=== PATIENT | male | born 1965 | race Caucasian/White ===

== ENCOUNTER 2017-11-02 18:34 | Emergency (ER) | payer OTHER ==
[~2017-11-02] VITALS: Ht 182.9 cm; Wt 98.9 kg
[~2017-11-02 18:34] MED LIST: ASPI-1271 PO; ATEN50TA8 PO; DOCU100C16 PO; FENO54TA4 PO; GABA300C PO; KEP500 PO; LORA-476 PO; NOVN SUBQ; OMEP40EC1 PO; SIMV10TA1 PO; VITA1TAB83 PO; ZOLP10TA1 PO; [UNRECOGNIZED DRUG - CODE] OP; [UNRECOGNIZED DRUG - CODE] OP; [UNRECOGNIZED DRUG - CODE] OP
[2017-11-02 19:15] VITALS: BP 119/62
--- NOTE | 2017-11-02 19:20 | NUR ---
TO LOBBY, AMB, MEDICATED, TOLERATED WELL, V/S STABLE, A/W FOR BED, ERMD NOTED
[2017-11-02] MEDS ORDERED: IBUPROFEN 800 MG TAB ONE (19:28)
--- NOTE | 2017-11-02 21:00 | NUR ---
PT. AMBULATED TO ER BED 11
--- NOTE | 2017-11-02 21:18 | NUR ---
52Y/M PT. PRESENTS TO ED WITH C/O FEVER X 3 DAYS. PT. STATES FEVER WITH COUGH, N/V. HX. ESRD ON HD, HTN, DM. AAO X4, AMBULATORY WITH STEADY GAIT. RESPIRATIONS ROOM AIR, EVEN AND UNLABORED. BL LUNG CLEAR, C/O NON PRODUCTIVE COUGH. SKIN WARM AND DRY, LT. UPPER ARM AV FISTULA. VSS, ER MADE AWARE OF PT. STATUS.
[2017-11-02 23:03] VITALS: BP 120/59
--- NOTE | 2017-11-02 23:05 | NUR ---
Patient discharged with v/s stable. Written and verbal after care instructions given and explained. Patient alert, oriented and verbalized understanding of instructions. Ambulatory with steady gait. All questions addressed prior to discharge. ID band removed. Patient advised to follow up with PMD. Rx of CIPRO MG, PREDNISONE given. Fide MGent educated on indication of medication including possible reaction and MG, MOTRIN side effects. Opportunity to ask questions provided and answered.
== END 2017-11-02 23:00 | disposition home or self-care (01) ==
LOC: MED 18:34
DX: R19.7 Diarrhea, unspecified (principal); R05 Cough; M54.5 Low back pain; E11.9 Type 2 diabetes mellitus without complications; I10 Essential (primary) hypertension
CPT/HCPCS: 99283

== ENCOUNTER 2019-08-31 10:59 | Inpatient (IN) | payer OTHER ==
[~2019-08-31] VITALS: Ht 182.9 cm; Wt 99.8 kg
[~2019-08-31 10:59] MED LIST changes: +FURO-572 PO; -LORA-476 PO; +NIFE-144 PO; +NIFE30TE98 PO; -OMEP40EC1 PO; +OMEP40EC24 PO; +PREG300C PO; +SEN30 PO; -[UNRECOGNIZED DRUG - CODE] OP
--- NOTE | 2019-08-31 10:59 | NUR ---
Patient BIBA ALS, transferred to bed 7. RN evaluating patient at bedside.
[2019-08-31 11:08] VITALS: BP 106/53
--- NOTE | 2019-08-31 11:10 | NUR ---
Note undone in EDM - 08/31/19 at 1205 by MEDHR BIBA FROM HOME C/O SLURRED SPEECH THIS MORNING AND FAMILY CALLED 911. PT ALSO C/O NAUSEA AND GENERALIZED WEAKNESS WITH REDUCED APPETITEFOR 2-3 WEEKS. PT DOES DIALYSIS ON WED/WED/WED, DIALYSIS SHUNT IS ON LEFT UPPER ARM WITH DRESSING COVERED. PT STATES BEING ABLE TO URINATE 2-3 TIMES DAILY WITH SMALL AMOUNT OF URINE. RECEIVED ZOFRAN ON AMBULANCE AROUND 1108AM TODAY. LEFT AC, 20G IV PLACED BY EMT. PT DENIES HAVING SOB, CP, AND HAS MINIOR SLURRED SPEECH MINIOR WITH NO DIFFICULTY OF UNDERSTANDING CONCEPTS. STRENGTH ON UPPER EXTREMETIES ARE EQUAL. PT ABLE TO RAISE EYEBROWS AND CLOSE EYES TIELY WITHOUT ASYMMETRY NOTICED ON PT'S FACE. PATIENT STATES PAIN OF 0/10 AT THIS TIME; VSS; PATIENT POSITIONED FOR COMFORT; HOB ELEVATED; BEDRAILS UP X2; BED DOWN. ER MD MADE AWARE OF PT STATUS. PT IS ON MONITOR.
--- NOTE | 2019-08-31 11:10 | NUR ---
BIBA FROM HOME C/O SLURRED SPEECH THIS MORNING AND FAMILY CALLED 911. PT ALSO C/O NAUSEA AND GENERALIZED WEAKNESS WITH REDUCED APPETITEFOR 2-3 WEEKS. PT DOES DIALYSIS ON MON/WED/FRI, DIALYSIS SHUNT IS ON LEFT UPPER ARM WITH DRESSING COVERED. PT STATES BEING ABLE TO URINATE 2-3 TIMES DAILY WITH SMALL AMOUNT OF URINE. RECEIVED ZOFRAN ON AMBULANCE AROUND 1108AM TODAY. RIGHT AC, 20G IV PLACED BY EMT. PT DENIES HAVING SOB, CP, AND HAS MINIOR SLURRED SPEECH MINIOR WITH NO DIFFICULTY OF UNDERSTANDING CONCEPTS. STRENGTH ON UPPER EXTREMETIES ARE EQUAL. PT ABLE TO RAISE EYEBROWS AND CLOSE EYES TIELY WITHOUT ASYMMETRY NOTICED ON PT'S FACE. PATIENT STATES PAIN OF 0/10 AT THIS TIME; VSS; PATIENT POSITIONED FOR COMFORT; HOB ELEVATED; BEDRAILS UP X2; BED DOWN. ER MD MADE AWARE OF PT STATUS. PT IS ON MONITOR.
--- NOTE | 2019-08-31 11:35 | NUR ---
Dr. Flores is evaluating the patient at bedside.
[2019-08-31] MEDS ORDERED: ACETAMINOPHEN 325 MG TAB PO ONE (11:45)
--- NOTE | 2019-08-31 11:46 | NUR ---
Dr. Flores is re-evaluating the patient at bedside.
[2019-08-31] MEDS ORDERED: ACETAMINOPHEN 325 MG TAB ONE (12:01)
[2019-08-31] MEDS: NACL 0.9% 1,000 ML IV SCH ×2 (12:05→13:05)
--- NOTE | 2019-08-31 12:11 | NUR ---
LAB IS AT BEDSIDE.
--- NOTE | 2019-08-31 12:14 | NUR ---
XRAY IS AT BEDSIDE.
[2019-08-31 12:28] LABS: HEMATOCRIT 37.5 % (36-52); HEMOGLOBIN 12.2 g/dL (12.0-18.0); MEAN CORPUSCULAR HEMOGLOBIN 32 pg (27-31); MEAN CORPUSCULAR HGB CONC 33 g/dL (33-37); MEAN CORPUSCULAR VOLUME 97.3 fL (80-94); PLATELET COUNT (AUTO) 159 K/uL (140-450); RED BLOOD CELL COUNT(AUTO) 3.86 MIL/uL (4.20-6.10); RED CELL DISTRIBUTION WIDTH 15.8 % (11.6-13.7); WHITE BLOOD COUNT (AUTO) 7.2 K/uL (4.8-10.8)
[2019-08-31 12:51] LABS: PROTHROMBIN TIME 9.9 secs (10.8-13.4)
[2019-08-31 12:54] LABS: ANION GAP 10.7 (8-16); POTASSIUM 3.7 mmol/L (3.5-5.1)
[2019-08-31 12:57] LABS: ALBUMIN 3.3 g/dL (3.4-5.0); CREATININE 7.9 mg/dL (0.7-1.3); TOTAL BILIRUBIN 0.8 mg/dL (0.0-1.0)
[2019-08-31 13:28] LABS: LYMPHOCYTES % (MANUAL) 4 % (20-46); MONOCYTES % (MANUAL) 1 % (5-12)
[2019-08-31] MEDS ORDERED: NACL 0.9% 1,000 ML IV ONE (13:35)
--- NOTE | 2019-08-31 13:43 | NUR ---
Note eliswing in EDM - 08/31/19 at 1638 by [email or web address] PT IS STILL NOT ABLE TO URINATE AT THIS TIME. OBTAINED PT AND HIS FAMILY'S PERMISSION AND PER DR. BROWNE'S ORDER. STRAIGHT CATH PT W/O URINE SAMPLE OBTAINED. EXPLAINED THE OUTCOME TO PT AND HIS FAMILY. DR. BROWNE NOTIFIED.
[2019-08-31] MEDS ORDERED: cefTRIAXone 1,000 MG VIAL ONE (14:37)
--- NOTE | 2019-08-31 14:41 | NUR ---
PT IS SLEEPING IN BED CAN BE AROUSED BY CALLING NAME. FAMILY MEMBERS ARE AT BEDSIDE.
[2019-08-31] MEDS ORDERED: LISI-420 PO (15:36)
[2019-08-31] MEDS ORDERED: KEP500 PO (15:36)
[2019-08-31] MEDS ORDERED: GABA300C PO (15:36)
[2019-08-31] MEDS ORDERED: ASPI-1718 PO (15:36)
--- NOTE | 2019-08-31 15:40 | NUR ---
PT IS SLEEPING IN BED CAN BE AROUSED BY CALLING NAME. FAMILY MEMBERS ARE AT BEDSIDE.
--- NOTE | 2019-08-31 16:30 | NUR ---
PT ADMITTED FROM ER. AAOX2 WITH EYES CLOSED, AROUSABLE TO SPEECH. INITIAL ASSESSMENT PERFORMED AT THIS TIME. RESPIRATIONS EVEN AND UNLABORED ON O2 NC 2L. SKIN INTACT. IV IN PLACE PATENT AND INFUSING 2L BOLUS R AC 20G. PT ACCOMPANIED BY SISTER AND MOTHER. SAFETY MEASURES IN PLACE. BED IN LOW POSITION. CALL LIGHT WITHIN REACH. WILL CONTINUE TO MONITOR.
--- NOTE | 2019-08-31 16:30 | NUR ---
Patient will be admitted to care of Viral Syndrome, Hypotension, Dehydration, and Fever. Admited to Telemetry. Will go to room 113. Belongings list completed. Report to JEREMY Domingo.
--- NOTE | 2019-08-31 17:02 | NUR ---
PT ENDORSED TO NIGHT NURSE FOR CONTINUITY OF CARE.
--- NOTE | 2019-08-31 19:30 | NUR ---
RECEIVED BEDSIDE REPORT FROM DAY RN. PT IS SLEEPING COMFORTABLY IN BED. ON NC 2L O2. SISTER AND ARE AT BEDSIDE THEYRE CONCERN PT WILL GET INSULIN TONIGHT WILL F/U NEW ORDERS AND PAGED MD. SKIN IS INTACT. [facility] SPEAKING IV ON RAC 20G SL. JEY AV SHUNT. POC DISCUSSED CALL LIGHT IS WITHIN REACH.
--- NOTE | 2019-08-31 19:45 | NUR ---
ENDORSED PT TO ROLANDO AND TAY LUNA. PT ENDORSED IN STABLE CONDITION.
--- NOTE | 2019-08-31 19:46 | NUR ---
Received report from PM shift nurse Chula. Pt sleeping in bed on left lateral side. No SOB or distress noted. On o2 2LPM via nasal cannula. IV access on right AC 20 patent and intact. Pt noted with AV shunt on left upper arm. Pt on seizure precautions. Safety measures in place. Bed in lowest position. Pt able to ambulate with assist. Board updated. Call light within patient reach. Will continue to monitor patient.
[2019-08-31 20:25] VITALS: BP 126/49
[2019-08-31] MEDS ORDERED: LEVE100S PO (20:53)
--- NOTE | 2019-08-31 20:55 | NUR ---
PAGED DR. VELASQUEZ TO CLARIFY HOME MEDICATIONS. HE SAID OK TO CONTINUE HOME MEDS. OTHER ORDERS MADE CONSULT WITH DR. BUCKLEY, DISEASE EDUCATION SPECIALIST AND ADD RENAL DIET TO CCHO 60 GM. AND BLOOD SUGAR CHECK WITH SLIDING SCALE.
--- NOTE | 2019-08-31 20:55 | NUR ---
CONTINUATION OF ABOVE NOTES. DR. VELASQUEZ MADE AWARE OF THE INSULIN THAT PT TAKES AT HOME.HE SAID TO HOLD AND ORDERED LANTUS AND HUMALOG INSTEAD. .
[2019-08-31] MEDS ORDERED: PREGABALIN 300 MG PO SCH (21:00)
[2019-08-31] MEDS ORDERED: DEXTROSE 50% 50 ML SYR IVP PRN (21:00)
[2019-08-31] MEDS: levETIRAcetam 100 MG/ML ORASYR PO SCH (22:02)
[2019-08-31] MEDS: SIMVASTATIN 10 MG TAB PO SCH (22:02)
[2019-08-31] MEDS: BLOOD GLUCOSE MONITORING 1 DEV DEV FS SCH (22:04)
--- NOTE | 2019-08-31 22:12 | NUR ---
BLOOD SUGAR WAS CHECKED RESULT 581. CALL MD TO MADE HIM AWARE. WILL WAIT FOR CALL BACK.
[2019-08-31] MEDS ORDERED: INSULIN LANTUS 100 UNITS/ML 10 ML VIAL SUBQ SCH ×2 (22:15→23:00)
--- NOTE | 2019-08-31 22:18 | NUR ---
DR. VELASQUEZ CALLED BACK AND MADE AWARE ABOUT BS 581. WITH ORDERS MADE.
[2019-08-31] MEDS ORDERED: INSULIN LISPRO 100 UNITS/ML VIAL SUBQ SCH (23:00)
--- NOTE | 2019-08-31 23:16 | NUR ---
GIVEN THE INSULIN COVERAGE ORDERED LANTUS AND HUMALOG ONCE TONIGHT FOR THE BS 581. PT PROVIDED SOME SANDWICH. TOLERATED WELL. WILL CONTINUE TO MONITOR.
--- NOTE | 2019-09-01 00:05 | NUR ---
Vital signs done. Pt sleeping comfortably. No distress or SOB noted. Will continue to monitor.
[2019-09-01 00:20] VITALS: BP 122/47
--- NOTE | 2019-09-01 02:01 | NUR ---
Rounds done. Pt sleeping. Visible chest rise and fall noted. Will continue to monitor.
--- NOTE | 2019-09-01 04:10 | NUR ---
Vital signs taken. Pt sitting on side of bed. No distress noted. Will continue to monitor.
[2019-09-01 04:29] VITALS: BP 134/60
--- NOTE | 2019-09-01 05:54 | NUR ---
Blood glucose checked result of 455. Dr. Keenan was paged and will wait for call back.
--- NOTE | 2019-09-01 06:30 | NUR ---
Called for Dr. Keenan a second time, no reply.
[2019-09-01] MEDS: BLOOD GLUCOSE MONITORING 1 DEV DEV FS SCH ×4 (06:33→21:08)
[2019-09-01 06:51] LABS: BASOPHILS # (AUTO) 0.1 K/uL (0.00-0.22); EOSINOPHILS # (AUTO) 0.1 K/uL (0-0.4); EOSINOPHILS % (AUTO) 1.3 % (0.0-4.0); HEMOGLOBIN 11.2 g/dL (12.0-18.0); LYMPHOCYTES # (AUTO) 0.7 K/uL (2.0-11.5); LYMPHOCYTES % (AUTO) 8.8 % (20.5-51.1); MEAN CORPUSCULAR HEMOGLOBIN 32 pg (27-31); MEAN CORPUSCULAR HGB CONC 33 g/dL (33-37); MEAN CORPUSCULAR VOLUME 97.7 fL (80-94); MONOCYTES # (AUTO) 0.4 K/uL (0.8-1.0); MONOCYTES % (AUTO) 5.1 % (1.7-9.3); NEUTROPHILS # (AUTO) 6.7 K/uL (1.8-7.7); NEUTROPHILS % (AUTO) 83.8 % (42.2-75.2); PLATELET COUNT (AUTO) 140 K/uL (140-450); RED BLOOD CELL COUNT(AUTO) 3.48 MIL/uL (4.20-6.10); RED CELL DISTRIBUTION WIDTH 15.8 % (11.6-13.7)
--- NOTE | 2019-09-01 07:08 | NUR ---
Spoke with Dr. Keenan made aware of blood sugar of 455 this morning. MD ordered 25units of Lantus one time aside from the scheduled 10 units of Humalog each meal.
--- NOTE | 2019-09-01 07:12 | NUR ---
Pt stable at this time. Sister at bedside. Will endorse to AM shift for continuity of care.
--- NOTE | 2019-09-01 07:25 | NUR ---
One time order of Lantus 25 units per doctors order given at this time.
[2019-09-01] MEDS ORDERED: INSULIN LISPRO 100 UNITS/ML VIAL SUBQ SCH ×2 (07:30→09:21)
[2019-09-01] MEDS ORDERED: INSULIN LANTUS 100 UNITS/ML 10 ML VIAL SUBQ SCH (07:30)
--- NOTE | 2019-09-01 07:30 | NUR ---
RECEIVED PT ROM COMMAND POST SUPERINTENDENT NURSE, TAY AND ROLANDO, PT IS AWAKE AND LYING ON THE BED WITH SIDE RAILS UP AND CALL LIGHT WITHIN REACH, PERIPHERAL LINE ON THE RT AC G. 20 ON SALINE LOCK, LEFT AV SHUNT FOR DIALYSIS ACCESS NOTED, ON O2 2L NC, PT IS SO SLEEPY BUT NO SIGN OF DISTRESS NOTED. WILL CONTINUE TO MONITOR PT.
[2019-09-01 07:33] LABS: ALBUMIN 2.8 g/dL (3.4-5.0); ANION GAP 15.9 (8-16); CARBON DIOXIDE 26.2 mmol/L (21-32); MAGNESIUM 2.2 mg/dL (1.8-2.4); POTASSIUM 5.1 mmol/L (3.5-5.1); TOTAL BILIRUBIN 0.9 mg/dL (0.0-1.0)
[2019-09-01 07:50] LABS: CREATININE 9.4 mg/dL (0.7-1.3)
[2019-09-01 08:00] VITALS: BP 117/50
[2019-09-01] MEDS: ASPIRIN 81 MG TAB.CHEW PO SCH (08:47)
[2019-09-01] MEDS: PANTOPRAZOLE 40 MG TABEC PO SCH (08:47)
[2019-09-01] MEDS: GABAPENTIN 300 MG CAP PO SCH (08:47)
[2019-09-01] MEDS: levETIRAcetam 100 MG/ML ORASYR PO SCH ×2 (08:48→20:55)
[2019-09-01] MEDS: PREGABALIN 50 MG CAP PO SCH ×2 (08:48→21:09)
[2019-09-01] MEDS: LISINOPRIL 20 MG TAB PO SCH (09:00)
[2019-09-01] MEDS: FUROSEMIDE 20 MG TAB PO SCH (09:00)
[2019-09-01] MEDS: NIFEdipine 30 MG TABER PO SCH (09:00)
[2019-09-01] MEDS ORDERED: NON-FORMULARY ITEM (Omeprazole* (Prilosec*) 20 MG) PO SCH (09:00)
[2019-09-01] MEDS ORDERED: NIFEDIPINE 30 MG PO SCH (09:00)
[2019-09-01] MEDS: ATENOLOL 50 MG TAB PO SCH (09:00)
--- NOTE | 2019-09-01 09:00 | NUR ---
DR. VELASQUEZ CALLED BACK, WAS INFORMED THAT PT'S BLOOD GLUCOSE AFTER THE LANTUS THAT WAS GIVEN IS 474 AND MADE A TELEPHONE ORDER TO GIVE PT REGULAR INSULIN 15 UNITS TID WITH MEALS AND A ONE TIME DOSE OF 15 UNITS INSULIN NOW, ORDERS READ BACK AND VERIFIED, WILL CARRY OUT ORDERS.
--- NOTE | 2019-09-01 09:00 | NUR ---
PATIENT HAS BEEN SCREENED AND CATEGORIZED MODERATE NUTRITION RISK. PATIENT WILL BE SEEN WITHIN 3-5 DAYS OF ADMISSION. 09/04/19 09/06/[address]
[2019-09-01] MEDS ORDERED: INSULIN REGULAR, HUMAN 100 UNIT/ML VIAL SUBQ ONE (09:10)
[2019-09-01 12:00] VITALS: BP 139/50
[2019-09-01] MEDS ORDERED: INSULIN REGULAR, HUMAN 100 UNIT/ML VIAL SUBQ SCH (12:00)
--- NOTE | 2019-09-01 12:10 | NUR ---
DIALYSIS WAS STARTED TO PT NOW.
--- NOTE | 2019-09-01 12:20 | NUR ---
INFLUENZA A&B ANTIGEN SAMPLE WAS TAKEN TO PT NOW AND WAS SENT TO LAB.
[2019-09-01] MEDS: INSULIN LISPRO 100 UNITS/ML VIAL SUBQ SCH ×2 (12:42→17:00)
--- NOTE | 2019-09-01 15:40 | NUR ---
DIALYSIS WAS FINISHED NOW.
[2019-09-01 16:00] VITALS: BP 119/65
--- NOTE | 2019-09-01 17:14 | NUR ---
PT IS AWAKE AND BLOOD GLUCOSE CHECK DONE AND RESULT IS 154, SCHEDULED 15 UNITS INSULIN WAS HELD BUT INSTEAD WILL USE THE HUMALOG SLIDING SCALE.
[2019-09-01] MEDS: INSULIN LISPRO SLIDING SCALE 100 UNITS/ML VIAL SUBQ PRN ×2 (17:29→21:05)
--- NOTE | 2019-09-01 19:15 | NUR ---
ENDORSED PT TO COMPUTER SECURITY SPECIALIST NURSELITA FOR CONTINUITY OF CARE.
--- NOTE | 2019-09-01 19:20 | NUR ---
RECEIVED REPORT AT BEDSIDE FROM HAYDEE LUNA DAYSHIFT NURSE AT BEDSIDE FOR CONTINUITY OF CARE, PT INSTABLE CONDITION.
[2019-09-01 20:00] VITALS: BP 111/37
--- NOTE | 2019-09-01 20:00 | NUR ---
PT IN LOW BED, HE IS AOX3 WITH NO S/S OF PAIN OR DISTRESS NOTED. IV SITE 20G ON RIGHT AC INTACT AND FLUSHED PATENT. PT DENIES PAIN AT THIS TIME V/S FOLLOWS T 99.3 P 64 R 18 B/P 111/37 02 91% ON ROOM AIR. COOLING MEASURES GIVEN FOR INCREASED TEMP AND ALL REQUESTED NEEDS ATTENDED. ALL FALLS PRECAUTIONS IN PLACE WELL AND CALL MARINO IN REACH.
--- NOTE | 2019-09-01 21:00 | NUR ---
PT GIVEN DUE MEDS OF KEPPRA, LYRICA AND ZOCOR, PT EDUCATION REGARDING MEDICATION PROVIDED, PT VERBALIZED UNDERSTANDING. PT FINGERSTICK IS 174, 2 UNITS OF HUMALOG COVERAGE PROVIDED SQ. PT DENIES PAIN AT THIS TIME. ALL SEIZURE AND FALLS PRECAUTIONS IN PLACE AND CALL MARINO IN REACH.
[2019-09-01] MEDS: SIMVASTATIN 10 MG TAB PO SCH (21:09)
--- NOTE | 2019-09-01 22:30 | NUR ---
PT ASSISTED TO TOILET AND BACK , ALL FALLS PROTOCOL IN PLACE. NO S/S OF PAIN OR DISTRESS NOTED.
[2019-09-02] VITALS: BP 140/41
--- NOTE | 2019-09-02 00:15 | NUR ---
PT IN BED NO S/S OF PAIN OR DISTRESS NOTED. V/S FOLLOWS T 98.0 P 60 R 18 B/P 140/41 02 94% ON ROOM AIR. ALL FALLS AND SEIZURE PROTOCOLS IN PLACE AND CALL MARINO IN REACH.
--- NOTE | 2019-09-02 02:00 | NUR ---
PT IN BED SLEEPING NO S/S OF PAIN OR DISTRESS NOTED. ALL FALLS AND SEIZURE PRECAUTIONS IN PLACE, AND CALL MARINO IN REACH.
[2019-09-02 04:00] VITALS: BP 137/52
--- NOTE | 2019-09-02 04:00 | NUR ---
SAID THAT HE WANTED TO LEAVE AMA. WHEN ASKED WHY, PT SAID THAT HE WAS STRAIGHT UP TIRED OF BEING HERE AND THAT HE WANTS TO GO HOME AND TAKE A SHOWER AND SHAVE ECT. HE SAID THAT HE FEELS FINE. PT INFORMED WE CANNOT DISCHARGE HIM UNLESS HE HAS A RIDE A HOME AND PEOPLE THERE TO HELP HIM. PT SAID HE LIVES W FAMILY, MOTHER AND SISTER. PT GAVE THE NAME AND NUMBER OF HIS HOME ( ). PHONED HOME AND SPOKE WITH MOTHER OSVALDO, SHE WAS INFORMED OF PT WISHES AND SHE SAID THAT SHE DOESN'T HAVE A CAR AT THIS TIME, BUT WILL CONTACT SISTER AND WORK ON GETTING HIM A RIDE HOME. SPOKE WITH PT WHO WAS AGREEABLE TO STAY UNTIL HE CAN FIND A RIDE HOME WHERE THERE IS FAMILY TO HELP HIM. TOLD MOTHER OSVALDO TO CALL BACK HERE WHEN A RIDE IS ARRANGED FOR HIM. CHARGE NURSE RUCHI LUNA AND HAROON LUNAWILDLIFE MANAGER AWARE. PT LYING IN BED AND V/S FOLLOWS T 97.5 P 60 R 18 B/P 137/52 02 98% ON ROOM AIR. ALL FALLS AND CONTACT PRECAUTIONS IN PLACE.
[2019-09-02] MEDS: PANTOPRAZOLE 40 MG TABEC PO SCH (06:44)
[2019-09-02] MEDS: INSULIN LISPRO SLIDING SCALE 100 UNITS/ML VIAL SUBQ PRN ×3 (06:47→21:07)
--- NOTE | 2019-09-02 06:58 | NUR ---
PT FINGERSTICK IS 302, PT GIVEN 8 UNITS ACCORDING TO S/S COVERAGE. STILL WAITING FOR RETURN CALL FROM FAMILY TO TRANSPORTATION SECURITY SCREENER PT PT REQUESTED. PT IN BED ALL FALLS PRECAUTIONS IN PLACE, NO S/S OF PAIN OR DISTRESS NOTED, CALL MARINO IN REACH.
[2019-09-02 07:10] LABS: CARBON DIOXIDE 25.5 mmol/L (21-32); POTASSIUM 4.5 mmol/L (3.5-5.1)
--- NOTE | 2019-09-02 07:15 | NUR ---
Received bedside report from pm nurse Anel. Pt sitting up at edge of bed, aaox4, no signs of distress, no c/o discomfort. Pt verbalized wanting to go home because he "feels better." Explained to pt that attending physician has not cleared him for discharge and will be safer for him to wait. Pt verbalized understanding & agree with POC.
[2019-09-02 07:16] LABS: PROTHROMBIN TIME 9.5 secs (10.8-13.4)
[2019-09-02 07:17] LABS: ALBUMIN 2.7 g/dL (3.4-5.0); ANION GAP 16.8 (8-16); CARBON DIOXIDE 25.7 mmol/L (21-32); POTASSIUM 4.5 mmol/L (3.5-5.1); TOTAL BILIRUBIN 0.6 mg/dL (0.0-1.0)
[2019-09-02 07:22] LABS: CREATININE 7.9 mg/dL (0.7-1.3)
[2019-09-02 07:23] LABS: CREATININE 7.8 mg/dL (0.7-1.3)
[2019-09-02] MEDS: BLOOD GLUCOSE MONITORING 1 DEV DEV FS SCH ×4 (07:36→20:35)
[2019-09-02 07:40] LABS: BASOPHILS # (AUTO) 0.1 K/uL (0.00-0.22); BASOPHILS % (AUTO) 1.1 % (0.0-2.0); EOSINOPHILS # (AUTO) 0.3 K/uL (0-0.4); EOSINOPHILS % (AUTO) 4.2 % (0.0-4.0); HEMATOCRIT 34.4 % (36-52); HEMOGLOBIN 11.3 g/dL (12.0-18.0); LYMPHOCYTES # (AUTO) 0.8 K/uL (2.0-11.5); LYMPHOCYTES % (AUTO) 12.3 % (20.5-51.1); MEAN CORPUSCULAR HEMOGLOBIN 32 pg (27-31); MEAN CORPUSCULAR HGB CONC 33 g/dL (33-37); MONOCYTES # (AUTO) 0.5 K/uL (0.8-1.0); MONOCYTES % (AUTO) 8.2 % (1.7-9.3); NEUTROPHILS # (AUTO) 4.7 K/uL (1.8-7.7); NEUTROPHILS % (AUTO) 74.2 % (42.2-75.2); PLATELET COUNT (AUTO) 141 K/uL (140-450); RED BLOOD CELL COUNT(AUTO) 3.55 MIL/uL (4.20-6.10); RED CELL DISTRIBUTION WIDTH 15.3 % (11.6-13.7); WHITE BLOOD COUNT (AUTO) 6.3 K/uL (4.8-10.8)
[2019-09-02 07:42] LABS: THYROID STIMULATING HORMONE 1.69 uIU/mL (0.34-3.74)
[2019-09-02 08:00] VITALS: BP 153/68
--- NOTE | 2019-09-02 08:00 | NUR ---
Right AC IV occluded. IV removed, catheter intact, site with min bleeding covered with dry gauze & tape. Pt denies any discomfort. No signs of distress. Bed alarm on. Call light within reach.
[2019-09-02] MEDS: levETIRAcetam 100 MG/ML ORASYR PO SCH ×2 (08:27→20:37)
[2019-09-02] MEDS: ASPIRIN 81 MG TAB.CHEW PO SCH (08:28)
[2019-09-02] MEDS: NIFEdipine 30 MG TABER PO SCH (08:28)
[2019-09-02] MEDS: GABAPENTIN 300 MG CAP PO SCH (08:28)
[2019-09-02] MEDS: ATENOLOL 50 MG TAB PO SCH (08:28)
[2019-09-02] MEDS: PREGABALIN 50 MG CAP PO SCH ×2 (08:29→20:39)
[2019-09-02] MEDS: FUROSEMIDE 20 MG TAB PO SCH (08:29)
[2019-09-02] MEDS: LISINOPRIL 20 MG TAB PO SCH (08:29)
[2019-09-02] MEDS: INSULIN LISPRO 100 UNITS/ML VIAL SUBQ SCH ×3 (08:38→17:00)
--- NOTE | 2019-09-02 11:30 | NUR ---
Pt mother & sister at bedside visiting pt. Pt sitting up at edge of bed, interacting appropriately. No signs of distress, no c/o discomfort. Call light within reach.
[2019-09-02 12:00] VITALS: BP 152/71
--- NOTE | 2019-09-02 12:20 | NUR ---
Dr. Mcdermott at bedside, confirmed if ok to give routine 15units of lispro plus 6units of sliding scale coverage. Per Dr Mcdermott, give 15units & will change insulin orders. Insulin given as directed by physician.
[2019-09-02] MEDS ORDERED: INSULIN NPH HUM/REG INSULIN HM 100 UNIT/ML 10 ML VIAL SUBQ SCH (12:43)
--- NOTE | 2019-09-02 14:41 | NUR ---
Pt sitting up in chair at bedside, no signs of distress, no c/o discomfort. Pt's mother at bedside as well. Call light within reach.
[2019-09-02 16:00] VITALS: BP 131/56
--- NOTE | 2019-09-02 16:14 | NUR ---
Report given to nurse Weiss.
--- NOTE | 2019-09-02 16:15 | NUR ---
RECEIVED REPORT FROM ARNOLD FOR CONTINUITY OF CARE.
--- NOTE | 2019-09-02 16:39 | NUR ---
PT IS RESTING COMFORTABLY IN BED, NO S/S OF ACUTE DISTRESS NOTED, PT ON ROOM AIR, SKIN INTACT. WILL CONTINUE TO MONITOR.
--- NOTE | 2019-09-02 17:51 | NUR ---
PT'S BLOOD GLUCOSE IS 177 AT THIS TIME. Addendum: 09/02/19 at 1803 by Isela Scott RN HELD THE ORDERED 10 UNITS OF HUMALOG BECAUSE PT SAYS HE IS NOT HUNGRY AND DOESN'T FEEL LIKE EATING DINNER TONIGHT. I DID GIVE HIM 2 UNITS SLIDING SCALE HUMALOG.
--- NOTE | 2019-09-02 19:15 | NUR ---
ENDORSED PT TO CHIEF ENGINEER PRODUCTION NURSE RENATE IN STABLE CONDITION
--- NOTE | 2019-09-02 19:16 | NUR ---
RECEIVED BEDSIDE REPORT FROM ALEXXCOSILVIO HERNANDEZ. PT IS AWAKE RESTING IN BED.DISCUSSED PLAN OF CARE, VERBALIZED UNDERSTANDING. NO SIGNS OF DISTRESS NOTED. EVEN UNLABORED BREATHING. SEIZURE PREC. IN PLACE. NO IV PLACEMENT. L AV SHUNT. BED IN LOWEST POSITION. CALL LIGHT WITHIN REACH. WILL CONTINUE TO MONITOR.
[2019-09-02 20:00] VITALS: BP 128/54
[2019-09-02] MEDS: SIMVASTATIN 10 MG TAB PO SCH (20:38)
--- NOTE | 2019-09-02 21:26 | NUR ---
BLOOD SUGAR 200. PT RECEIVED 2 UNITS HUMALOG INSULIN. TOLERATED WELL. NIGHT TIME SNACK IS AT BEDSIDE. WILL CONTINUE TO MONITOR.
--- NOTE | 2019-09-02 23:00 | NUR ---
PT SLEEPING IN BED. ABLE TO MAKE NEEDS KNOWN. NO PAIN REPORTED. WILL CONTINUE TO MONITOR.
[2019-09-03] VITALS: BP 106/49
--- NOTE | 2019-09-03 01:21 | NUR ---
PT SLEEPING IN BED NO SIGNS OF DISTRESS. VSS. NO PAIN REPORTED. NO SIGNS OF DISTRESS.
--- NOTE | 2019-09-03 03:20 | NUR ---
PT SLEEPING IN BED NO SIGNS OF DISTRESS. EVEN CHEST RISE NOTED. NO PAIN REPORTED.
--- NOTE | 2019-09-03 05:16 | NUR ---
PT REPOSITIONED IN BED. NO SIGNS OF DISTRESS. NO PAIN REPORTED.
--- NOTE | 2019-09-03 06:14 | NUR ---
PT IN STABLE CONDITION. WILL ENDORSE TO AM SHIFT RN.
[2019-09-03] MEDS ORDERED: INSULIN NPH HUMAN ISOPHANE 100 UNIT/ML VIAL SUBQ SCH ×3 (06:30→21:00)
[2019-09-03] MEDS: PANTOPRAZOLE 40 MG TABEC PO SCH (06:33)
[2019-09-03] MEDS: BLOOD GLUCOSE MONITORING 1 DEV DEV FS SCH ×2 (06:41→12:03)
[2019-09-03 06:51] LABS: ANION GAP 19.6 (8-16); CARBON DIOXIDE 23.6 mmol/L (21-32)
[2019-09-03] MEDS: INSULIN LISPRO 100 UNITS/ML VIAL SUBQ SCH ×2 (06:53→11:05)
--- NOTE | 2019-09-03 07:00 | NUR ---
CALLED DR IN REGARDS TO INSULIN PROTOCOL. BLOOD SUGAR 442. WAITING FOR CALL BACK FROM .
--- NOTE | 2019-09-03 07:06 | NUR ---
RECEIVED CALL BACK FROM . ORDERED 5 UNITS OF HUMALOG LISPRO. WILL ADMINISTER.
[2019-09-03] MEDS: INSULIN LISPRO SLIDING SCALE 100 UNITS/ML VIAL SUBQ PRN (07:13)
[2019-09-03 07:22] LABS: CREATININE 10.5 mg/dL (0.7-1.3)
[2019-09-03 07:23] LABS: POTASSIUM 5.2 mmol/L (3.5-5.1)
--- NOTE | 2019-09-03 07:30 | NUR ---
Received report from mine shifter nurse. Family be bedside.Pt is in bed now.
--- NOTE | 2019-09-03 07:51 | NUR ---
Received report from Lab Michael at 0725. Called [facility] at 0732 to notify of critical lab values. Requested to notify Dr Camarillo or conversion developer physician Dr Pizano. Addendum: 09/03/19 at 0800 by Rajan Cline RN Dr Shlomo alvarenga Tessa Addendum: 09/03/19 at 0903 by Rajan Cline RN Wrong patient.
[2019-09-03 08:00] VITALS: BP_SYST 129; BP_SYST 132; BP_DIAS 59; BP_DIAS 63
[2019-09-03] MEDS: GABAPENTIN 300 MG CAP PO SCH (09:10)
[2019-09-03] MEDS: NIFEdipine 30 MG TABER PO SCH (09:10)
[2019-09-03] MEDS: ASPIRIN 81 MG TAB.CHEW PO SCH (09:10)
[2019-09-03] MEDS: LISINOPRIL 20 MG TAB PO SCH (09:11)
[2019-09-03] MEDS: FUROSEMIDE 20 MG TAB PO SCH (09:11)
[2019-09-03] MEDS: ATENOLOL 50 MG TAB PO SCH (09:11)
[2019-09-03] MEDS: levETIRAcetam 100 MG/ML ORASYR PO SCH (09:13)
[2019-09-03] MEDS: PREGABALIN 50 MG CAP PO SCH (09:45)
--- NOTE | 2019-09-03 10:45 | NUR ---
Pt's blood sugar was 494. Reported to Dr. Matthews and Charge nurse. Dr Matthews requested to administer 10 U Humalog.
--- NOTE | 2019-09-03 11:46 | NUR ---
Pt is resting in bed. Pt's mother by bedside. No C/O pain.
[2019-09-03 12:00] VITALS: BP 132/59
--- NOTE | 2019-09-03 12:20 | NUR ---
Pt's 1130 blood glucose value was 450. Talked to . [address] Kelley told to give 10 U Short acting Humulin R and 10 U NPH now. Reported to charge nurse. Addendum: 09/03/19 at 1302 by Rajan Cline RN Called pharmacy. As per pharmacy order for short acting was changed to Humalog and not Humulin R.
[2019-09-03] MEDS ORDERED: INSULIN REGULAR, HUMAN 100 UNIT/ML VIAL SUBQ SCH (12:40)
[2019-09-03] MEDS ORDERED: INSULIN LISPRO 100 UNITS/ML VIAL SUBQ SCH ×2 (13:09→13:58)
--- NOTE | 2019-09-03 16:10 | NUR ---
Pt was discharged today. Pt had no complains of pain or in any distress. No IV line noted. Provided discharge papers and requested to follow up with PCP within 5 days. ID bands removed, tele removed. refused vaccines. continue home meds. Pt walked with steady gait. Mother accompanied patient. patient left in stable condition
== END 2019-09-03 16:15 | disposition home or self-care (01) | DRG 865 ==
LOC: MED 10:59 → MTU 15:37
PROVIDERS: ADMIT Internal Medicine Pulmonary Disease; ATTEND Internal Medicine Pulmonary Disease
PROC: 5A1D70Z Performance of Urinary Filtration, Intermittent, Less than 6 Hours Per Day (ICD-10-PCS; principal; 2019-09-01)
DX: B34.9 Viral infection, unspecified (principal); N18.6 End stage renal disease; I69.351 Hemiplegia and hemiparesis following cerebral infarction affecting right dominant side; I12.0 Hypertensive chronic kidney disease with stage 5 chronic kidney disease or end stage renal disease; Z99.2 Dependence on renal dialysis; E11.22 Type 2 diabetes mellitus with diabetic chronic kidney disease; E11.65 Type 2 diabetes mellitus with hyperglycemia; E11.42 Type 2 diabetes mellitus with diabetic polyneuropathy; G40.909 Epilepsy, unspecified, not intractable, without status epilepticus; E78.5 Hyperlipidemia, unspecified; H54.61 Unqualified visual loss, right eye, normal vision left eye; K21.9 Gastro-esophageal reflux disease without esophagitis; E86.0 Dehydration; I95.9 Hypotension, unspecified; Z79.4 Long term (current) use of insulin; Z79.82 Long term (current) use of aspirin; Z83.3 Family history of diabetes mellitus; Z79.899 Other long term (current) drug therapy
CPT/HCPCS: 36415; 70450; 71045; 80048; 80053; 82140; 82550; 82553; 82948; 83605; 83735; 83880; 84436; 84443; 84484; 85025; 85610; 85730; 87040; 87081; 87804; 93005; 96361; 96365; 97116; 99285; C1758; J0696; J1815; J7030; Q0092

== ENCOUNTER 2020-09-21 07:00 | Emergency (ER) | payer OTHER ==
[~2020-09-21] VITALS: Ht 182.9 cm; Wt 99.8 kg
[~2020-09-21 07:00] MED LIST changes: -ASPI-1271 PO; +ASPI-1822 PO; -DOCU100C16 PO; -FENO54TA4 PO; -KEP500 PO; +LEVE100S PO; +LISI-420 PO; -NIFE30TE98 PO; -NOVN SUBQ; -SEN30 PO; -VITA1TAB83 PO; -ZOLP10TA1 PO; -[UNRECOGNIZED DRUG - CODE] OP; -[UNRECOGNIZED DRUG - CODE] OP
[2020-09-21 07:19] VITALS: BP 183/156
--- NOTE | 2020-09-21 07:32 | NUR ---
PATIENT AMBULATED TO ER BED 02
--- NOTE | 2020-09-21 07:38 | NUR ---
55 y/o male from c/o dry cough, nausea, vomiting, diarrhea since yesterday. Denies pain at this time. RR even and unlabored, no signs of distress. Abd soft, round, nontender to palp. Bowel sounds present x 4 quadrants. Pt has left arm shunt for dialysis. Skin warm, dry, intact. Placed on bedside monitor medhx: ESRD, DM, HTN
--- NOTE | 2020-09-21 07:42 | NUR ---
Dr Perez at bedside examining pt
[2020-09-21] MEDS ORDERED: cefTRIAXone 1,000 MG in DEXT 5% MINI-BAG PLUS 50 ML IV ONE (07:45)
--- NOTE | 2020-09-21 07:56 | NUR ---
Lab at bedside for blood draw
[2020-09-21] MEDS ORDERED: cefTRIAXone 1,000 MG VIAL ONE ×2 (07:59→08:52)
--- NOTE | 2020-09-21 08:03 | NUR ---
Xray at bedside
[2020-09-21 08:15] LABS: BASOPHILS # (AUTO) 0.1 K/uL (0.00-0.22); BASOPHILS % (AUTO) 1.5 % (0.0-2.0); EOSINOPHILS # (AUTO) 0.1 K/uL (0-0.4); EOSINOPHILS % (AUTO) 1.5 % (0.0-4.0); HEMATOCRIT 28.1 % (36-52); HEMOGLOBIN 9.7 g/dL (12.0-18.0); LYMPHOCYTES # (AUTO) 0.9 K/uL (2.0-11.5); LYMPHOCYTES % (AUTO) 11.2 % (20.5-51.1); MEAN CORPUSCULAR HEMOGLOBIN 31 pg (27-31); MEAN CORPUSCULAR HGB CONC 34 g/dL (33-37); MEAN CORPUSCULAR VOLUME 90.5 fL (80-94); MONOCYTES # (AUTO) 0.4 K/uL (0.8-1.0); MONOCYTES % (AUTO) 4.8 % (1.7-9.3); NEUTROPHILS # (AUTO) 6.3 K/uL (1.8-7.7); PLATELET COUNT (AUTO) 221 K/uL (140-450); RED BLOOD CELL COUNT(AUTO) 3.11 MIL/uL (4.20-6.10); RED CELL DISTRIBUTION WIDTH 14.5 % (11.6-13.7); WHITE BLOOD COUNT (AUTO) 7.7 K/uL (4.8-10.8)
[2020-09-21 08:42] LABS: ALBUMIN 3.6 g/dL (3.4-5.0); ANION GAP 13.7 (8-16); CARBON DIOXIDE 30.3 mmol/L (21-32); TOTAL BILIRUBIN 1.1 mg/dL (0.0-1.0)
[2020-09-21] MEDS ORDERED: cefTRIAXone 1,000 MG in LIDOCAINE MPF 1% 2.1 ML IM ONE (08:45)
[2020-09-21 08:51] LABS: CREATININE 5.9 mg/dL (0.6-1.3)
[2020-09-21] MEDS ORDERED: LIDOCAINE MPF 1% 5 ML ONE (08:53)
--- NOTE | 2020-09-21 08:56 | NUR ---
Anusha Carlos, and Influenza swab collected and walked to lab
[2020-09-21 09:22] VITALS: BP 168/132
--- NOTE | 2020-09-21 09:22 | NUR ---
Patient discharged with v/s stable. Written and verbal after care instructions given and explained. Patient alert, oriented and verbalized understanding of instructions. Ambulatory with steady gait. All questions addressed prior to discharge. ID band removed. Patient advised to follow up with PMD. Rx of Azithromycin 250mg given. Patient educated on indication of medication including possible reaction and side effects. Opportunity to ask questions provided and answered.
== END 2020-09-21 09:27 | disposition home or self-care (01) ==
LOC: MED 07:00
DX: R50.9 Fever, unspecified (principal); J18.9 Pneumonia, unspecified organism; E11.9 Type 2 diabetes mellitus without complications; K21.9 Gastro-esophageal reflux disease without esophagitis; F17.210 Nicotine dependence, cigarettes, uncomplicated; N28.9 Disorder of kidney and ureter, unspecified; I63.9 Cerebral infarction, unspecified; Z20.828 Contact with and (suspected) exposure to other viral communicable diseases; Z79.899 Other long term (current) drug therapy
CPT/HCPCS: 36415; 71045; 80053; 83605; 83880; 84484; 85025; 87040; 87426; 87804; 93005; 96372; 99285; J0696; J2001; U0003

== ENCOUNTER 2021-01-05 18:28 | Emergency (ER) | payer OTHER, MEDICAID ==
[~2021-01-05] VITALS: Ht 172.7 cm; Wt 80.7 kg
[~2021-01-05 18:28] MED LIST changes: -LISI-420 PO; +LISI-487 PO
[2021-01-05 18:41] VITALS: BP 204/86
--- NOTE | 2021-01-05 18:41 | NUR ---
PT TAKEN TO ER BED 2.
--- NOTE | 2021-01-05 18:45 | NUR ---
55 Y/O MALE BIBA FOR RIGHT TOE PAIN 410 AT HOME. PT STATES HE WAS AT HOME AND BUMPED FOOT ON SCREW COMING UP FROMTHE GROUND. PT HAS HAD TETANUS SHOT RECENTLY. PMH: ESRD, DM, HTN NKA
--- NOTE | 2021-01-05 19:12 | NUR ---
Dr. Edwards at pt bedside for further evaluation.
--- NOTE | 2021-01-05 19:27 | NUR ---
Report given to JEREMY Saul, transfer of care at this time.
--- NOTE | 2021-01-05 19:55 | NUR ---
received pt endorsement from Manisha LUNA. pt appears to be comfortable without any distress in bed in semi fowlers position. a/o x 4, gcs 15. able to move all extremities and connected to v/s monitoring. pt is a 55 year old male from home for c/o puncture to right hallux s/p stepping on a foreign object at home while ambulating to restroom. bleeding appears to be controlled with band-aid. pt stated to be on blood thinners. on dialysis MWF with Right upper arm shunt noted. thrill felt and bruit heard. denies any other s/sx.
[2021-01-05] MEDS ORDERED: CLONIDINE HYDROCHLORIDE 0.1 MG TAB PO ONE (20:05)
[2021-01-05] MEDS ORDERED: CEPH250C16 PO (20:44)
[2021-01-05 20:45] VITALS: BP 195/94
--- NOTE | 2021-01-05 20:48 | NUR ---
s/w pt mother Latha. stated that she will call family to try to pick up truck driver pt if d/c. pt notified of situation.
--- NOTE | 2021-01-05 21:00 | NUR ---
s/w pt mother Latha, stated that her grandson will be coming to pickling operator pt and taking him home.
== END 2021-01-05 21:08 | disposition home or self-care (01) ==
LOC: MED 18:28
DX: S91.111A Laceration without foreign body of right great toe without damage to nail, initial encounter (principal); E11.40 Type 2 diabetes mellitus with diabetic neuropathy, unspecified; I10 Essential (primary) hypertension; Z79.899 Other long term (current) drug therapy; Z79.82 Long term (current) use of aspirin; W22.8XXA Striking against or struck by other objects, initial encounter; Y93.89 Activity, other specified; Y92.89 Other specified places as the place of occurrence of the external cause; Y99.8 Other external cause status
CPT/HCPCS: 73660; 99283

== ENCOUNTER 2021-01-28 10:46 | Emergency (ER) | payer OTHER, MEDICAID ==
[~2021-01-28] VITALS: Ht 182.9 cm; Wt 97.5 kg
[2021-01-28 10:55] VITALS: BP 154/67
--- NOTE | 2021-01-28 11:03 | NUR ---
Patient ambulated to bed 7. RN evaluating the patient at bedside.
--- NOTE | 2021-01-28 11:10 | NUR ---
55 y/o M coming in from home with c/c left ear pain x 2 days. Patient states on 01/27, he was sleeping and heard a buzzing noise near his left ear. Patient states something flew inside his ear and he was advised to get evaluated after loss of hearing to his left side. Patient stated associated N/V x 6 episodes yesterday and pain after the incident. States nausea today, denies vomiting, pain fever, chills, headache, vision changes, dizziness, SOB, chest pain, abdominal pain. Patient reports slight improvement to hearing this morning, stating "my hearing is coming back a little bit this morning." Pt denies any medications prior to arrival. Pt placed onto playground monitor; HR 53; BP 148/50; which patient states is normal d/t his medications. Bed locked in lowest position, side rails x 1, call light in reach. PMH: DM, HDL, ESRD with Dialysis (MWF), HTN, stroke, seizures Meds: Atenolol, insulin "RNN" simvastatin, gabapentin, Sevelamer NKA
--- NOTE | 2021-01-28 12:08 | NUR ---
Dr. Perez is evaluating patient at bedside.
[2021-01-28 12:21] VITALS: BP 141/64
--- NOTE | 2021-01-28 12:21 | NUR ---
Patient discharged with v/s stable. Written and verbal after care instructions given and explained. Patient verbalized understanding. Ambulatory with steady gait. All questions addressed prior to discharge. Advised to follow up with PMD.
== END 2021-01-28 12:21 | disposition home or self-care (01) ==
LOC: MED 10:46
DX: H92.02 Otalgia, left ear (principal); E11.9 Type 2 diabetes mellitus without complications; I10 Essential (primary) hypertension; Z79.899 Other long term (current) drug therapy; Z79.82 Long term (current) use of aspirin
CPT/HCPCS: 99281

== ENCOUNTER 2021-01-29 04:50 | Emergency (ER) | payer OTHER, MEDICAID ==
[~2021-01-29] VITALS: Ht 185.4 cm; Wt 113.4 kg
--- NOTE | 2021-01-29 04:50 | NUR ---
PT MARY ALS. TAKEN TO BED 3
--- NOTE | 2021-01-29 04:55 | NUR ---
55 Y/O MALE BIBA FROM HOME C/O HYPOGLYCEMIA. PER EMS, PT HAS WEAKNESS, DIZZINESS, AND NAUSEA. A&OX4. GLUSCOSE OF 66 PER EMS.EVEN AND STEADY GAIT; LUNGS CLEAR BL; HR EVEN AND REGULAR; PT DENIES ANY FEVER, CP, SOB, OR COUGH AT THIS TIME; PATIENT STATES PAIN OF 0/10 AT THIS TIME; VSS; PATIENT POSITIONED FOR COMFORT; HOB ELEVATED; BEDRAILS UP X2; BED DOWN. ER MD MADE AWARE OF PT STATUS. PMH: DIALYSIS MWF, STROKE (JANUARY 2006), DM NKA
--- NOTE | 2021-01-29 05:18 | NUR ---
Dr. Acuña examining patient.
[2021-01-29 05:24] VITALS: BP 186/79
--- NOTE | 2021-01-29 05:30 | NUR ---
LAB AT BEDSIDE
[2021-01-29] MEDS ORDERED: DEXTROSE 50% 50 ML SYR IVP ONE (05:35)
[2021-01-29] MEDS ORDERED: NACL 0.9% 500 ML IV ONE (05:35)
[2021-01-29] MEDS ORDERED: ONDANSETRON 4 MG/2 ML VIAL IVP ONE (05:35)
[2021-01-29 05:53] LABS: BASOPHILS # (AUTO) 0.1 K/uL (0.00-0.22); BASOPHILS % (AUTO) 1.9 % (0.0-2.0); EOSINOPHILS # (AUTO) 0.1 K/uL (0-0.4); EOSINOPHILS % (AUTO) 1.4 % (0.0-4.0); HEMATOCRIT 33.4 % (36-52); HEMOGLOBIN 11.1 g/dL (12.0-18.0); LYMPHOCYTES # (AUTO) 0.5 K/uL (2.0-11.5); LYMPHOCYTES % (AUTO) 12.8 % (20.5-51.1); MEAN CORPUSCULAR HEMOGLOBIN 31 pg (27-31); MEAN CORPUSCULAR HGB CONC 33 g/dL (33-37); MEAN CORPUSCULAR VOLUME 92.1 fL (80-94); MONOCYTES # (AUTO) 0.4 K/uL (0.8-1.0); MONOCYTES % (AUTO) 9.1 % (1.7-9.3); NEUTROPHILS # (AUTO) 3.2 K/uL (1.8-7.7); NEUTROPHILS % (AUTO) 74.8 % (42.2-75.2); PLATELET COUNT (AUTO) 186 K/uL (140-450); RED BLOOD CELL COUNT(AUTO) 3.63 MIL/uL (4.20-6.10); RED CELL DISTRIBUTION WIDTH 15.7 % (11.6-13.7); WHITE BLOOD COUNT (AUTO) 4.2 K/uL (4.8-10.8)
--- NOTE | 2021-01-29 05:53 | NUR ---
EKG PERFORMED AT BEDSIDE
--- NOTE | 2021-01-29 06:19 | NUR ---
PT TAKEN TO CT
[2021-01-29 06:29] LABS: ALBUMIN 3.6 g/dL (3.4-5.0); ANION GAP 16.1 (8-16); ASPARTATE AMINOTRANSFERASE 26 U/L (15-37); CHLORIDE 96 mmol/L (98-107); GFR ARICAN-AMERICAN 9 mL/min (>90); GLUCOSE 71 mg/dL (74-106); POTASSIUM 3.1 mmol/L (3.5-5.1); SODIUM SERUM 137 mmol/L (136-145); TOTAL BILIRUBIN 1.1 mg/dL (0.0-1.0); UREA NITROGEN, BLOOD 33 mg/dL (7-18)
--- NOTE | 2021-01-29 06:30 | NUR ---
PT RETURN FROM CT
--- NOTE | 2021-01-29 06:35 | NUR ---
UPDATED PT'S MOTHER REGARDING PT'S SITUATION CONTACT: OSVALDO GIORDANO [phone]
[2021-01-29 06:39] LABS: CREATININE 7.9 mg/dL (0.6-1.3)
--- NOTE | 2021-01-29 06:55 | NUR ---
RECEIVED A CALL FROM CHELSEA PARSONS IN LAB FOR CRITICAL VALUE; ANDREW MADE AWARE; NO ORDERS RECEIVED TROPONIN: 0.072
--- NOTE | 2021-01-29 07:13 | NUR ---
Pt report given to JEREMY HODGES. Transfer of care at this time.
--- NOTE | 2021-01-29 07:18 | NUR ---
ENDORSEMENT RECEIVED FROM JEREMY MICHAEL. CONTINUATION OF CARE AT THIS POINT.
--- NOTE | 2021-01-29 07:19 | NUR ---
07:19 - PT LYING IN BED EYES CLOSED, APPARENT CHEST RISE AND FALL. PT CONNECTED TO MONITOR, RECEIVING 2LPM SUPPLEMENTAL OXYGEN VIA NASAL CANNULA SPO2 96%. 07:22 - WOKE PT UP. PT AO4, STATES "FEELING TIRED" DUE TO INABILITY TO SLEEP COMFORTABLY SINCE ARRIVING TO HOSPITAL. SPEECH CLEAR, DENIED DISTRESS. WILL CONTINUE TO MONITOR.
--- NOTE | 2021-01-29 07:25 | NUR ---
PROVIDED UPDATE TO PT'S MOTHER REGARDING PT STATUS.
[2021-01-29 08:35] VITALS: BP 186/79
--- NOTE | 2021-01-29 08:36 | NUR ---
Patient discharged with v/s stable. Written and verbal after care instructions ABOUT HYPOGLYCEMIA given and explained. Patient verbalized understanding. Ambulatory with steady gait. All questions addressed prior to discharge. Advised to follow up with PMD.
--- NOTE | 2021-02-01 19:20 | NUR ---
LATE ENTRY- NORMAL SALINE 0.9% DISCONTINUED AT 0800
== END 2021-01-29 08:36 | disposition home or self-care (01) ==
LOC: MED 04:50
DX: E11.22 Type 2 diabetes mellitus with diabetic chronic kidney disease (principal); I12.0 Hypertensive chronic kidney disease with stage 5 chronic kidney disease or end stage renal disease; N18.6 End stage renal disease; E11.649 Type 2 diabetes mellitus with hypoglycemia without coma; R41.82 Altered mental status, unspecified; Z99.2 Dependence on renal dialysis; Z79.899 Other long term (current) drug therapy; Z79.82 Long term (current) use of aspirin
CPT/HCPCS: 36415; 70450; 80053; 84484; 85025; 93005; 96361; 96374; 96375; 99285; G0482; J2405; J7040

== ENCOUNTER 2021-03-02 07:19 | Emergency (ER) | payer OTHER, MEDICAID ==
[~2021-03-02] VITALS: Ht 182.9 cm; Wt 97.5 kg
--- NOTE | 2021-03-02 07:31 | NUR ---
PT AMBULATED TO BED 11 WITH STEADY GAIT
--- NOTE | 2021-03-02 07:35 | NUR ---
55 Y/O MALE PRESENTS TO ED WITH LACERATION TO L 2ND DIGIT. PT WAS WASHING DISHES YESTERDAY AT 1500 AND CUT FINGER ON A BROKEN GLASS. PT WRAPPED IT WITH BANDAIDS AND GAUZE AND STATES THAT IT WOULDNT STOP BLEEDING. UNCONTROLLED BLEEDING AT THE MOMENT REWRAPPED FINGER WITH GAUZE. CAP REFILL <3, RADIAL PULSES +2, FULL ROM AND SENSATION. PT DENIES PAIN/N/V. PT AOX4, BREATHING EVEN AND UNLABORED, SKIN WARM AND DRY. PT SITTING IN BED WITH BED IN LOWEST POSITION, BRAKES LOCKED, X1 SIDERAIL UP. PMH: ESRD- SHUNT L UPPER ARM, DM, CVA 2005, HTN NKA
[2021-03-02 07:36] VITALS: BP 129/65
--- NOTE | 2021-03-02 07:40 | NUR ---
ACCUCHECK: 63. JUICE AND CRACKERS GIVEN TO PT. DR ADORNO MADE AWARE
--- NOTE | 2021-03-02 07:55 | NUR ---
DR ADORNO AT BEDSIDE EVALUATING PT
[2021-03-02] MEDS ORDERED: LIDOCAINE/EPI 1% 1:100000 20 ML VIAL INJ ONE (08:00)
--- NOTE | 2021-03-02 08:19 | NUR ---
RAD AT BEDSIDE
--- NOTE | 2021-03-02 08:37 | NUR ---
DR ADORNO AT BEDSIDE FOR PROCEDURE
[2021-03-02] MEDS ORDERED: CEPH-588 PO (09:01)
[2021-03-02 09:33] VITALS: BP 129/65
== END 2021-03-02 09:32 | disposition home or self-care (01) ==
LOC: MED 07:19
DX: S61.211A Laceration without foreign body of left index finger without damage to nail, initial encounter (principal); Z23 Encounter for immunization; E11.9 Type 2 diabetes mellitus without complications; Z79.899 Other long term (current) drug therapy; Z79.82 Long term (current) use of aspirin; Z98.890 Other specified postprocedural states; W25.XXXA Contact with sharp glass, initial encounter; Y93.G1 Activity, food preparation and clean up; Y92.89 Other specified places as the place of occurrence of the external cause; Y99.8 Other external cause status
CPT/HCPCS: 12001; 73140; 90471; 90715; 99283; J2001

== ENCOUNTER 2021-03-09 07:19 | Emergency (ER) | payer OTHER, MEDICAID ==
[~2021-03-09] VITALS: Ht 182.9 cm; Wt 99.8 kg
[~2021-03-09 07:19] MED LIST changes: +CEPH-588 PO
[2021-03-09 07:23] VITALS: BP 163/74
--- NOTE | 2021-03-09 07:25 | NUR ---
Dr. Finney is evaluating patient at bedside.
--- NOTE | 2021-03-09 07:28 | NUR ---
Patient ambulated to bed 06 with steady/even gait.
--- NOTE | 2021-03-09 07:31 | NUR ---
55 y/o M BIB self for suture removal. Patient is A&Ox4, ambulatory and was seen here 1 week ago for left 1st digit laceration. Patient denies any pain; wound without any redness, swelling, drainage, bleeding. Patient states he completed his prescribed antibiotics treatment 2 days ago. Denies fever, chills, cold-like symptoms. PMH: DM, Dialysis (AV fistula LUE), HTN, HLD, left CVA (2005) NKA
--- NOTE | 2021-03-09 07:35 | NUR ---
Sutures removed; patient tolerated procedure well, denies any pain during or after removal.
[2021-03-09] MEDS ORDERED: BACI1PAC6 TP (07:39)
[2021-03-09] MEDS ORDERED: BACITRACIN OINT 500 UNITS/GM PKT TP ONE (07:40)
== END 2021-03-09 07:43 | disposition home or self-care (01) ==
LOC: MED 07:19
DX: S61.211D Laceration without foreign body of left index finger without damage to nail, subsequent encounter (principal); E11.9 Type 2 diabetes mellitus without complications; Z79.899 Other long term (current) drug therapy; Z79.82 Long term (current) use of aspirin; Z98.890 Other specified postprocedural states; X58.XXXD Exposure to other specified factors, subsequent encounter
CPT/HCPCS: 99282

== ENCOUNTER 2021-04-10 09:38 | Emergency (ER) | payer OTHER, MEDICAID ==
[~2021-04-10] VITALS: Ht 182.9 cm; Wt 97.5 kg
[~2021-04-10 09:38] MED LIST changes: +BACI1PAC6 TP
--- NOTE | 2021-04-10 09:38 | NUR ---
Patient BIBA ALS, transferred to bed 7. RN evaluating the patient at bedside.
[2021-04-10 09:40] VITALS: BP 111/55
--- NOTE | 2021-04-10 09:40 | NUR ---
Dr. Azul is evaluating the patient at bedside.
--- NOTE | 2021-04-10 09:45 | NUR ---
56 Y/O MALE BIBA C/O LOW BLOOD SUGAR. PER EMS PT WAS CONFUSED ON SCENE BLOOD SUGAR OF 33. WAS GIVEN DEXTROSE 10%. ACCU CHECK IS 93. PT IS AXO4. PT DENIES ANY PAIN. IV SITE R HAND 20G, INTACT, PATENT. PT RECEVIED DIALYSIS YESTERDAY MEDHX: DM, HTN, STROKE, DIALYSIS MWF, L ARM SHUNT NKA
--- NOTE | 2021-04-10 09:49 | NUR ---
PT STATES HE IS HUNGRY. PER DR OSITO KOHLER TO GIVE FOOD. PROVIDED SANDWICH AND CRANBERRY JUICE.
--- NOTE | 2021-04-10 09:50 | NUR ---
LAB AT BEDSIDE
[2021-04-10 10:00] LABS: EOSINOPHILS # (AUTO) 0.1 K/uL (0-0.4); EOSINOPHILS % (AUTO) 2.5 % (0.0-4.0); HEMATOCRIT 34.3 % (36-52); HEMOGLOBIN 11.5 g/dL (12.0-18.0); LYMPHOCYTES # (AUTO) 0.6 K/uL (2.0-11.5); LYMPHOCYTES % (AUTO) 13.3 % (20.5-51.1); MEAN CORPUSCULAR HEMOGLOBIN 31 pg (27-31); MEAN CORPUSCULAR HGB CONC 34 g/dL (33-37); MEAN CORPUSCULAR VOLUME 91.9 fL (80-94); MONOCYTES # (AUTO) 0.3 K/uL (0.8-1.0); MONOCYTES % (AUTO) 7.8 % (1.7-9.3); NEUTROPHILS # (AUTO) 3.2 K/uL (1.8-7.7); NEUTROPHILS % (AUTO) 75.4 % (42.2-75.2); PLATELET COUNT (AUTO) 160 K/uL (140-450); RED BLOOD CELL COUNT(AUTO) 3.73 MIL/uL (4.20-6.10); RED CELL DISTRIBUTION WIDTH 16.6 % (11.6-13.7); WHITE BLOOD COUNT (AUTO) 4.2 K/uL (4.8-10.8)
[2021-04-10 10:18] LABS: ALBUMIN 3.5 g/dL (3.4-5.0); ANION GAP 15.4 (8-16); CARBON DIOXIDE 29.9 mmol/L (21-32); POTASSIUM 3.3 mmol/L (3.5-5.1); TOTAL BILIRUBIN 0.9 mg/dL (0.0-1.0)
[2021-04-10 10:22] LABS: CREATININE 6.1 mg/dL (0.6-1.3)
--- NOTE | 2021-04-10 11:21 | NUR ---
PT STATES HE IS HUNGRY AGAIN, PER DR OSITO KOHLER TO GIVE. PROVIDED WITH SANDWICH AND CRANBERRY JUICE.
[2021-04-10 12:08] VITALS: BP 111/55
--- NOTE | 2021-04-10 12:08 | NUR ---
Patient discharged with v/s stable. Written and verbal after care instructions given and explained. Patient alert, oriented and verbalized understanding of instructions. Ambulatory with steady gait. All questions addressed prior to discharge. ID band removed. Patient advised to follow up with PMD. Opportunity to ask questions provided and answered.
== END 2021-04-10 12:08 | disposition home or self-care (01) ==
LOC: MED 09:38
DX: E11.65 Type 2 diabetes mellitus with hyperglycemia (principal); R41.82 Altered mental status, unspecified; Z87.448 Personal history of other diseases of urinary system
CPT/HCPCS: 36415; 80053; 85025; 99283

== ENCOUNTER 2021-04-26 13:55 | Emergency (ER) | payer OTHER, MEDICAID ==
[~2021-04-26] VITALS: Ht 182.9 cm; Wt 97.5 kg
--- NOTE | 2021-04-26 13:56 | NUR ---
PATIENT TAKEN TO ER BED 10 BY RISSA
[2021-04-26 14:01] VITALS: BP 148/49
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
[2021-04-26 14:51] VITALS: BP 148/49
== END 2021-04-26 14:51 | disposition home or self-care (01) ==
LOC: MED 13:55
DX: S61.213A Laceration without foreign body of left middle finger without damage to nail, initial encounter (principal); E11.22 Type 2 diabetes mellitus with diabetic chronic kidney disease; N18.6 End stage renal disease; Z99.2 Dependence on renal dialysis; W45.8XXA Other foreign body or object entering through skin, initial encounter; Y93.89 Activity, other specified; Y92.89 Other specified places as the place of occurrence of the external cause; Y99.8 Other external cause status
CPT/HCPCS: 12001; 99282

== ENCOUNTER 2021-05-15 18:42 | Emergency (ER) | payer OTHER ==
[~2021-05-15] VITALS: Ht 180.3 cm; Wt 94.8 kg
[2021-05-15 19:16] VITALS: BP 187/81
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
--- NOTE | 2021-05-15 19:46 | NUR ---
Dr. Finney examining patient.
[2021-05-15] MEDS ORDERED: BACI1PAC6 TP (20:03)
[2021-05-15] MEDS ORDERED: BACITRACIN OINT 500 UNITS/GM PKT TP ONE (20:05)
--- NOTE | 2021-05-15 20:17 | NUR ---
PT WOUND ON L 3RD FINGER COVERED WITH NON ADHERENT DRESSING AND WRAPPED WITH COFLEX AFTER BACITRACIN APPLIED. SPLINT PLACED ON FINGER
[2021-05-15 20:28] VITALS: BP 166/84
--- NOTE | 2021-05-15 20:28 | NUR ---
Patient discharged with v/s stable. Written and verbal after care instructions given and explained. Patient alert, oriented and verbalized understanding of instructions. Ambulatory with steady gait. All questions addressed prior to discharge. ID band removed. Patient advised to follow up with PMD. Rx of BACITRACIN OINT given. Patient educated on indication of medication including possible reaction and side effects. Opportunity to ask questions provided and answered.
== END 2021-05-15 20:28 | disposition home or self-care (01) ==
LOC: MED 18:42
DX: T23.122A Burn of first degree of single left finger (nail) except thumb, initial encounter (principal); J45.909 Unspecified asthma, uncomplicated; E11.9 Type 2 diabetes mellitus without complications; I10 Essential (primary) hypertension; Z86.73 Personal history of transient ischemic attack (TIA), and cerebral infarction without residual deficits
CPT/HCPCS: 16000; 99282

== ENCOUNTER 2021-05-22 10:36 | Emergency (ER) | payer OTHER, MEDICAID ==
[~2021-05-22] VITALS: Ht 182.9 cm; Wt 91.2 kg
[2021-05-22 10:50] VITALS: BP 153/72
[2021-05-22] MEDS ORDERED: BACITRACIN OINT 500 UNITS/GM PKT TP ONE ×2 (12:05→12:08)
[2021-05-22] MEDS ORDERED: CEPH-588 PO (12:48)
[2021-05-22] MEDS ORDERED: BACI1PAC6 TP (12:48)
[2021-05-22 12:55] VITALS: BP 154/71
== END 2021-05-22 12:55 | disposition home or self-care (01) ==
LOC: MED 10:36
DX: T23.002D Burn of unspecified degree of left hand, unspecified site, subsequent encounter (principal); L97.511 Non-pressure chronic ulcer of other part of right foot limited to breakdown of skin; J45.909 Unspecified asthma, uncomplicated; E11.22 Type 2 diabetes mellitus with diabetic chronic kidney disease; I12.0 Hypertensive chronic kidney disease with stage 5 chronic kidney disease or end stage renal disease; N18.6 End stage renal disease; Z99.2 Dependence on renal dialysis; Z86.73 Personal history of transient ischemic attack (TIA), and cerebral infarction without residual deficits
CPT/HCPCS: 99283

== ENCOUNTER 2021-11-28 04:58 | Emergency (ER) | payer OTHER ==
[~2021-11-28] VITALS: Ht 182.9 cm; Wt 85.7 kg
[2021-11-28 04:58] VITALS: BP 155/68
--- NOTE | 2021-11-28 05:18 | NUR ---
PT MARY TO CHAIR E
--- NOTE | 2021-11-28 05:20 | NUR ---
SEEN AND EXAMINED BY ANDREW
[2021-11-28 05:50] VITALS: BP 155/68
== END 2021-11-28 05:50 | disposition home or self-care (01) ==
LOC: MED 04:58
DX: I10 Essential (primary) hypertension (principal); E11.22 Type 2 diabetes mellitus with diabetic chronic kidney disease; I12.0 Hypertensive chronic kidney disease with stage 5 chronic kidney disease or end stage renal disease; N18.6 End stage renal disease
CPT/HCPCS: 99282

== ENCOUNTER 2021-12-15 08:03 | Emergency (ER) | payer OTHER ==
[~2021-12-15] VITALS: Ht 182.9 cm; Wt 88.9 kg
[2021-12-15 08:08] VITALS: BP 169/85
[2021-12-15 09:40] LABS: ALBUMIN 3.6 g/dL (3.4-5.0); ANION GAP 15.7 (8-16); CARBON DIOXIDE 31.3 mmol/L (21-32); TOTAL BILIRUBIN 0.6 mg/dL (0.0-1.0)
[2021-12-15 09:52] LABS: CREATININE 7.6 mg/dL (0.6-1.3)
--- NOTE | 2021-12-15 10:04 | NUR ---
56 Y/O MALE C/O WOUND CHECK TO RIGHT PINKY TOE X3 MONTHS. STATES WOUND CONTINUES TO OPEN UP AND HAS NOT HEALED. PT REPORTS BLOODY DRAINAGE, DENIES FEVER/CHILLS. PT REPORTS HE HAS A WOUND CARE NURSE COME 3X A WEEK TO DRESS TOE. PT DENIES ANY PAIN AT THIS TIME. PT AMBULATES WITH STEADY GAIT UNASSISTED. PT IS ABLE TO WIGGLE TOES, WITH MINIMAL SENSATION D/T NEUROPATHY. PT A/O X4 WITH EVEN AND UNLABORED RESPIRATIONS MEDHX: DM, KIDNEY FAILURE (DIALYSIS TUES, THURS, SAT), HTN, HX OF STROKE, NEUROPATHY ALLERGIES: NKA
[2021-12-15 12:44] LABS: BASOPHILS # (AUTO) 0.1 K/uL (0.00-0.22); BASOPHILS % (AUTO) 1.3 % (0.0-2.0); EOSINOPHILS # (AUTO) 0.1 K/uL (0-0.4); EOSINOPHILS % (AUTO) 2.8 % (0.0-4.0); HEMATOCRIT 35.2 % (36-52); HEMOGLOBIN 12.2 g/dL (12.0-18.0); LYMPHOCYTES # (AUTO) 0.8 K/uL (2.0-11.5); LYMPHOCYTES % (AUTO) 15.3 % (20.5-51.1); MEAN CORPUSCULAR HEMOGLOBIN 33 pg (27-31); MEAN CORPUSCULAR HGB CONC 35 g/dL (33-37); MEAN CORPUSCULAR VOLUME 94.7 fL (80-94); MONOCYTES # (AUTO) 0.3 K/uL (0.8-1.0); MONOCYTES % (AUTO) 5.1 % (1.7-9.3); NEUTROPHILS # (AUTO) 3.9 K/uL (1.8-7.7); NEUTROPHILS % (AUTO) 75.5 % (42.2-75.2); PLATELET COUNT (AUTO) 214 K/uL (140-450); RED BLOOD CELL COUNT(AUTO) 3.72 MIL/uL (4.20-6.10); RED CELL DISTRIBUTION WIDTH 14.2 % (11.6-13.7); WHITE BLOOD COUNT (AUTO) 5.2 K/uL (4.8-10.8)
--- NOTE | 2021-12-15 12:58 | NUR ---
Patient discharged with v/s stable. Written and verbal after care instructions ABOUT WOUND CARE given and explained. Patient verbalized understanding. Ambulatory with steady gait. All questions addressed prior to discharge. Advised to follow up with PMD. D/C BY DR BARKSDALE
== END 2021-12-15 12:58 | disposition home or self-care (01) ==
LOC: MED 08:03
DX: E11.22 Type 2 diabetes mellitus with diabetic chronic kidney disease (principal); I12.0 Hypertensive chronic kidney disease with stage 5 chronic kidney disease or end stage renal disease; N18.6 End stage renal disease; L97.519 Non-pressure chronic ulcer of other part of right foot with unspecified severity; J45.909 Unspecified asthma, uncomplicated; Z99.2 Dependence on renal dialysis; Z98.890 Other specified postprocedural states; Z79.82 Long term (current) use of aspirin; Z79.899 Other long term (current) drug therapy
CPT/HCPCS: 36415; 73660; 80053; 83605; 85025; 85651; 86140; 87040; 93005; 99285

== ENCOUNTER 2021-12-26 09:39 | Emergency (ER) | payer OTHER ==
[~2021-12-26] VITALS: Ht 182.9 cm; Wt 86.2 kg
[2021-12-26 09:43] VITALS: BP 107/47
--- NOTE | 2021-12-26 09:49 | NUR ---
pt ambulated to bed 09 at this time
--- NOTE | 2021-12-26 09:57 | NUR ---
dr boland at bedside examining pt
--- NOTE | 2021-12-26 10:00 | NUR ---
56 y/o male, c/o blood in urine, dysuria, urine consistency is thick, diarrhea and nausea that started 8 months ago. pmh: renal disease, dialysis (wednesday, , wednesday), dm2, stroke 2005, eye sx nka med: compliant with medications
--- NOTE | 2021-12-26 11:00 | NUR ---
# 18 FR Urinary catheter inserted utilizing sterile technique. Immediate return of 0 ml NO urine noted. Pt tolerated procedure WELL. NKECHI HOOK MADE AWARE.
--- NOTE | 2021-12-26 12:16 | NUR ---
ermd at bedside reevaluating pt
[2021-12-26] MEDS ORDERED: CEPH250C16 PO (12:54)
[2021-12-26 13:20] VITALS: BP 130/75
== END 2021-12-26 13:20 | disposition home or self-care (01) ==
LOC: MED 09:39
DX: N39.0 Urinary tract infection, site not specified (principal); R31.9 Hematuria, unspecified; E11.22 Type 2 diabetes mellitus with diabetic chronic kidney disease; I12.0 Hypertensive chronic kidney disease with stage 5 chronic kidney disease or end stage renal disease; N18.6 End stage renal disease; Z99.2 Dependence on renal dialysis; Z98.890 Other specified postprocedural states; Z79.899 Other long term (current) drug therapy; Z79.82 Long term (current) use of aspirin
CPT/HCPCS: 81002; 99283

== ENCOUNTER 2022-02-10 17:50 | Inpatient (IN) | payer OTHER ==
[~2022-02-10] VITALS: Ht 182.9 cm; Wt 103.9 kg
[~2022-02-10 17:50] MED LIST changes: +CEPH250C16 PO
--- NOTE | 2022-02-10 17:50 | NUR ---
Patient BIBA to bed 2 at this time.
[2022-02-10 17:58] VITALS: BP 166/79
[2022-02-10] MEDS ORDERED: ACETAMINOPHEN EXTRA STRENGTH 500 MG TAB PO ONE (18:05)
--- NOTE | 2022-02-10 18:17 | NUR ---
XR AT PT BEDSIDE
--- NOTE | 2022-02-10 18:27 | NUR ---
LAB AT PT BEDSIDE
--- NOTE | 2022-02-10 18:41 | NUR ---
56 Y/O MALE BIBA C/O R HAND NUMBNESS/ CONSTANT PAIN X1 DAY. PAIN IS NONRADIATING RATED /10. PT DENIES RECENT TRAUMA. PT DENIES SOB, CHEST PAIN AND IS ABLE TO SPEAK IN COMPLETE SENTENCES. PT IS ON DYALISIS AND WAS LAST DIALYZED TODAY WITH NO ISSUES. PT ALERT AND ORIENTED X4. BED IN LOWEST POSITION. BED RAIL X1. PMH:ESRD, DM, HTN, A FIB NKA
[2022-02-10 19:01] LABS: EOSINOPHILS % (AUTO) 0.9 % (0.0-4.0); HEMATOCRIT 36.2 % (36-52); HEMOGLOBIN 12.5 g/dL (12.0-18.0); LYMPHOCYTES # (AUTO) 0.5 K/uL (2.0-11.5); LYMPHOCYTES % (AUTO) 11.6 % (20.5-51.1); MEAN CORPUSCULAR HEMOGLOBIN 32 pg (27-31); MEAN CORPUSCULAR HGB CONC 35 g/dL (33-37); MEAN CORPUSCULAR VOLUME 92.4 fL (80-94); MONOCYTES # (AUTO) 0.4 K/uL (0.8-1.0); MONOCYTES % (AUTO) 8.3 % (1.7-9.3); NEUTROPHILS # (AUTO) 3.5 K/uL (1.8-7.7); NEUTROPHILS % (AUTO) 78.2 % (42.2-75.2); PLATELET COUNT (AUTO) 168 K/uL (140-450); RED BLOOD CELL COUNT(AUTO) 3.92 MIL/uL (4.20-6.10); RED CELL DISTRIBUTION WIDTH 13.5 % (11.6-13.7); WHITE BLOOD COUNT (AUTO) 4.4 K/uL (4.8-10.8)
--- NOTE | 2022-02-10 19:21 | NUR ---
Pt report given to RUBEN BAPTISTE. Transfer of care at this time.
[2022-02-10 19:24] LABS: ALBUMIN 3.3 g/dL (3.4-5.0); ANION GAP 11.4 (8-16); CARBON DIOXIDE 29.6 mmol/L (21-32)
--- NOTE | 2022-02-10 19:26 | NUR ---
REPORT RECEIVED FROM JEREMY SCHWARTZ. CONTINUITY OF PT CARE AT THIS TIME.
[2022-02-10 19:32] LABS: CREATININE 5.2 mg/dL (0.6-1.3)
--- NOTE | 2022-02-10 19:33 | NUR ---
PT LAYING IN BED LOCKED IN LOWEST POSITION W X2 SIDERAILS UP FOR PT SAFETY. PT REPORTS ONGOING R HAND/WRIST PAIN /, OTHERWISE NO OTHER COMPLAINTS. R HAND WRIST AREA NOTED W MILD SWELLING, AND SLIGHT WARMTH. VSS.
--- NOTE | 2022-02-10 19:38 | NUR ---
Dr. Sandra examining patient.
[2022-02-10] MEDS ORDERED: cefTRIAXone 1,000 MG VIAL ONE (20:46)
--- NOTE | 2022-02-10 20:52 | NUR ---
PT REQUESTING PAIN MEDICATION FOR R ARM AND DIABETIC NEUROPATHY FOR LEGS. MIESHAD MADE AWARE.
[2022-02-10] MEDS ORDERED: MORPHINE SULFATE 4 MG/ML SYR IVP ONE (20:55)
--- NOTE | 2022-02-10 21:21 | NUR ---
Ultrasound at bedside.
--- NOTE | 2022-02-10 22:54 | NUR ---
PT REPORTS FEELING BETTER W SOMEPAINIMPROVEMENT AT THIS TIME.
--- NOTE | 2022-02-10 22:55 | NUR ---
Note reji in EDM - 02/10/22 at 2307 by [id number] Patient will be admitted to care of DR. WHITNEY. Admited to TELEMETRY. Will go to room 117. Belongings list completed. Report to JEREMY HOUSE.
--- NOTE | 2022-02-10 22:55 | NUR ---
Patient will be admitted to care of DR. WHITNEY. Admited to TELEMETRY. Will go to room 117. Belongings list completed. Report to JEREMY HOUSE.
--- NOTE | 2022-02-10 23:43 | NUR ---
This is an admission note for a 56 year old male patient of Doctor Rankin for right hand cellulitis. Patient is alert oriented with complaint of difficulty with adl's with affected extremity and pain, numbness, tingling of the same. He has hemodialysis at [facility] Wednesday, and Wednesday. Thrill and bruit to left upper extremity access present. Clean, dry intact dressing in place. Serg Jackson RN
[2022-02-11] VITALS: BP 169/78
[2022-02-11] MEDS: HYDROcodone/APAP 5/325 MG 1 TAB TAB PO PRN ×2 (00:35→09:54)
[2022-02-11 04:00] VITALS: BP 167/74
--- NOTE | 2022-02-11 07:05 | NUR ---
Handoff with JEREMY Bustamante. Serg Jackson RN
--- NOTE | 2022-02-11 07:35 | NUR ---
RECEIVED BEDSIDE REPORT FROM GOLF COURSE SUPERINTENDENT NURSE FOR CONTINUITY OF CARE. PT IS AOX4 AND NO S/S OF DISTRESS NOTED. BREATHING IS EVEN AND UNLABORED. DENIES PAIN. ON RA. PT IS STABLE.
[2022-02-11 08:00] VITALS: BP 167/72
--- NOTE | 2022-02-11 08:34 | NUR ---
PATIENT HAS BEEN SCREENED AND CATEGORIZED MODERATE NUTRITION RISK. PATIENT WILL BE SEEN WITHIN 3-5 DAYS OF ADMISSION. RONI CONCEPCION RD
[2022-02-11 09:06] LABS: ANION GAP 15.2 (8-16); POTASSIUM 3.2 mmol/L (3.5-5.1)
[2022-02-11 09:27] LABS: CREATININE 6.6 mg/dL (0.6-1.3)
[2022-02-11 09:30] LABS: BASOPHILS # (AUTO) 0.1 K/uL (0.00-0.22); BASOPHILS % (AUTO) 1.2 % (0.0-2.0); EOSINOPHILS # (AUTO) 0.1 K/uL (0-0.4); EOSINOPHILS % (AUTO) 2.3 % (0.0-4.0); HEMATOCRIT 37.8 % (36-52); LYMPHOCYTES # (AUTO) 0.9 K/uL (2.0-11.5); LYMPHOCYTES % (AUTO) 17.9 % (20.5-51.1); MEAN CORPUSCULAR HEMOGLOBIN 32 pg (27-31); MEAN CORPUSCULAR HGB CONC 34 g/dL (33-37); MEAN CORPUSCULAR VOLUME 92.9 fL (80-94); MONOCYTES # (AUTO) 0.5 K/uL (0.8-1.0); MONOCYTES % (AUTO) 9.3 % (1.7-9.3); NEUTROPHILS # (AUTO) 3.4 K/uL (1.8-7.7); NEUTROPHILS % (AUTO) 69.3 % (42.2-75.2); PLATELET COUNT (AUTO) 170 K/uL (140-450); RED BLOOD CELL COUNT(AUTO) 4.07 MIL/uL (4.20-6.10); WHITE BLOOD COUNT (AUTO) 4.9 K/uL (4.8-10.8)
[2022-02-11] MEDS ORDERED: ACETAMINOPHEN 325 MG TAB PO PRN (10:15)
[2022-02-11] MEDS ORDERED: MAG SULF 2000 MG/WATER PREMIX 50 ML IV PRN (10:15)
[2022-02-11] MEDS ORDERED: DOCUSATE SODIUM 100 MG GELCAP PO PRN (10:15)
[2022-02-11] MEDS ORDERED: HYDROcodone/APAP 5/325 MG 1 TAB TAB PO PRN (10:15)
[2022-02-11] MEDS ORDERED: LORazepam 2 MG/ML VIAL IM/IVP PRN (10:15)
[2022-02-11] MEDS ORDERED: ONDANSETRON 4 MG/2 ML VIAL IM/IVP PRN (10:15)
[2022-02-11] MEDS ORDERED: POTASSIUM CHLORIDE 10 MEQ TABER PO PRN (10:15)
[2022-02-11] MEDS ORDERED: POTASSIUM CHLORIDE 10 MEQ TABER PO SCH (10:19)
[2022-02-11] MEDS ORDERED: DEXTROSE 50% 50 ML SYR IVP PRN (10:25)
[2022-02-11 10:57] LABS: PHOSPHORUS 4.8 mg/dL (2.5-4.9); THYROID STIMULATING HORMONE 3.6 uIU/mL (0.34-3.74)
[2022-02-11] MEDS: INSULIN LISPRO SLIDING SCALE 100 UNITS/ML VIAL SUBQ PRN ×3 (11:04→21:53)
[2022-02-11] MEDS: BLOOD GLUCOSE MONITORING 1 DEV DEV FS SCH ×3 (11:04→21:52)
[2022-02-11 11:08] LABS: PROTHROMBIN TIME 10.6 secs (10.8-13.4)
[2022-02-11 12:00] VITALS: BP 119/83
--- NOTE | 2022-02-11 12:00 | NUR ---
PT WAS GIVEN POAIN MEDS PER MD ORDER AND HELPED IWTH THE RIGHT HAND PAIN. PT IS AOX4 AND NO S/S OF DISTRESS NOTED. BREATHING IS EVEN AND UNLABORED. DENIES PAIN. ON RA. PT IS STABLE.
--- NOTE | 2022-02-11 14:30 | NUR ---
PT WAS GIVEN XRAY AND CT SCAN OF RIGHT FOOT FOR RULE OUT OF OSTEOMYELITIS. THEY RECOMMEND MRI FOR FURTHER STUDIES ,,
--- NOTE | 2022-02-11 14:32 | NUR ---
WOUND CARE EVALUATION NOTE: SKIN ASSESSMENT DONE ON THIS 56 Y/O PT. ADMITTED WITH R HAND NUMBNESS/ CONSTANT PAIN X1 DAY. PT DENIES RECENT TRAUMA. PT. ADMITTED WITH DIABETIC ULCER TO RIGHT FOOT. PER PT. HE HAS HOME HEALTH NURSE WHO VISIT HIM WEEKLY. PT ALERT AND ORIENTED X4. POC DISCUSSED WITH PT. WITH WOUND CARE TEACHING DONE AND DAILY FOOT CARE EXPLAINED. PT. VERBALIZES UNDERSTANDING. -RIGHT 5TH DIGIT TOE DIABETIC ULCER 1.5X1.3CM SUPERFICIAL DEPTH, WOUND BED PALE PINK, DRY, NO ODOR, CHARLEY WOUND SKIN THIN SCABBING, PAIN 0/10 -RIGHT HAND CELLULITIS,SWELLING NUMBNESS PAIN 3/10. RECOMMENDATIONS: -CLEANSE RIGHT 5TH TOE WOUND WITH NS. PAT DRY, APPLY HYDROCOLLOID DRESSING Q3 DAYS AND PRN IF SOILING -FOOT CARE DAILY,KEEP BOTH FEET DRY AND CLEAN
[2022-02-11] MEDS ORDERED: VANCOMYCIN PER PHARMACY MC PRN (15:50)
[2022-02-11 16:00] VITALS: BP 154/76
--- NOTE | 2022-02-11 16:31 | NUR ---
DC PLANNING: THE PATIENT PRESENTED FROM HOME WITH C/O PERSISTENT RIGHT HAND PAIN AND SWELLING, HAS HAD A RIGHT 5TH DIGIT OF FOOT NONHEALING WOUND X 1 YR. PATIENT HAS H/O ESRD, DM SZ'S AND CVA. HAND XRAY NEGATIVE FOR ACUTE FINDINGS, PATIENT WITH TEMP OF 101 IN ER. XR RIGHT FOOT SHOWS SUSPECTED OSTEOMYELITIS, QUESTIONABLE FX. PATIENT GIVEN ZOSYN X 1 IN ED, STARTED ON ROCEHIN IV. NEPHROLOGY AND ID CONSULTS ORDERED, WOUND CARE EVALUATION. CM SPOKE WITH THE PATIENT AT BEDSIDE AND CONFIRMED HIS ADDRESS AND PHONE NUMBER. HE LIVES IN A SINGLE STORY HOUSE WITH HIS MOTHER AND IS ABLE TO AMBULATE WITHOUT ASSISTIVE DEVICES. HAS DME OF A FWW AND GLUCOMETER AND IS INDEPENDENT WITH ALL ACTIVITIES. HE GOES TO DIALYSIS TTS AT [facility] AND USES [facility]SP[facility]. HE SEES HIS PCP DR MACKAY REGULARLY, HIS PHYSICS AND ASTRONOMY PROFESSOR IS DR BUCKLEY. HE HAS BEEN TRYING TO ARRANGE [facility] BUT HAS HAD TROUBLE CONTACTING THEM AND GETTING THEM TO CALL HIM BACK. HE ADMITS TO BEING NON-COMPLIANT WITH ADA AND RENAL DIET BUT DOES CHECK HIS BLOOD SUGARS REGULARLY. THE PATIENT IS NOT SURE IF HE WILL NEED [facility] TRANSPORT OR IF HIS FAMILY WILL GIVE HIM A RIDE HOME. CM WILL FOLLOW. Addendum: 02/12/22 at 1618 by Renee Rodgers CM DC PLANNING: BRIE SPOKE WITH BRIE HAGAN FROM [facility]. DISCUSSED POTENTIAL NEED FOR HYDROGEOLOGIST IV ABX SECONDARY TO SUSPECTED OSTEO OF THE FOOT. PATIENT HAS BEEN FOLLOWED BY DR PEDRO BOJORQUEZ, ANIMAL BIOLOGIST, PHONE NUMBER [phone]. UNCLEAR IF PATIENT WILL DC HOME VS SNF FOR ABX, CM WILL SPEAK WITH [facility] WHEN DC PLAN IS CLEAR REGARDING OPTIONS AND AUTHORIZATION. CM WILL FOLLOW.
[2022-02-11] MEDS ORDERED: VANCOMYCIN 1,000 MG in DEXTROSE 5% 250 ML IV SCH (17:00)
--- NOTE | 2022-02-11 19:20 | NUR ---
PT ENDORSED TO TOPOGRAPHY TECHNICIAN NURSE FOR CONTINUITY OF CARE. POC DISCUSSED.
[2022-02-11 20:00] VITALS: BP 160/60
--- NOTE | 2022-02-11 20:00 | NUR ---
BHAVANI LUNDBERG 02 SAT WNL , ON TELE MONITOR - REQUESTING SLEEPING PILL - HE SAID HE HAD NO GOOD SLEEP SINCE LAST NIGHT - WILL MEDICATE ORDERED .
[2022-02-11] MEDS ORDERED: PIPERACILLIN/TAZOBACTAM 2.25 GM in DEXTROSE 5% 50 ML IV SCH (21:00)
[2022-02-11] MEDS: levETIRAcetam 100 MG/ML ORASYR PO SCH (21:43)
[2022-02-11] MEDS: SIMVASTATIN 10 MG TAB PO SCH (21:44)
[2022-02-12] VITALS: BP 160/65
--- NOTE | 2022-02-12 | NUR ---
ROUNDS , C/O PAIN - WILL MEDICATE .
[2022-02-12] MEDS: ZOLPIDEM 5 MG TAB PO PRN (00:03)
[2022-02-12] MEDS: HYDROcodone/APAP 5/325 MG 1 TAB TAB PO PRN ×2 (00:55→22:45)
[2022-02-12 04:00] VITALS: BP 150/100
--- NOTE | 2022-02-12 04:00 | NUR ---
ROUNDS , NO COMPLAIN MADE
--- NOTE | 2022-02-12 06:00 | NUR ---
ROUNDS , WILL SWAB THE WOUND OF 5TH DIGIT ON R FOOT - WILL SEND THE SPECIMEN TO LAB , WILL TAKE PHOTO PROTOCOL .
[2022-02-12 06:16] LABS: BASOPHILS # (AUTO) 0.1 K/uL (0.00-0.22); EOSINOPHILS # (AUTO) 0.1 K/uL (0-0.4); EOSINOPHILS % (AUTO) 2.7 % (0.0-4.0); HEMATOCRIT 33.8 % (36-52); HEMOGLOBIN 11.5 g/dL (12.0-18.0); LYMPHOCYTES # (AUTO) 1.1 K/uL (2.0-11.5); LYMPHOCYTES % (AUTO) 21.2 % (20.5-51.1); MEAN CORPUSCULAR HEMOGLOBIN 32 pg (27-31); MEAN CORPUSCULAR HGB CONC 34 g/dL (33-37); MEAN CORPUSCULAR VOLUME 93.7 fL (80-94); MONOCYTES # (AUTO) 0.6 K/uL (0.8-1.0); NEUTROPHILS # (AUTO) 3.4 K/uL (1.8-7.7); NEUTROPHILS % (AUTO) 63.1 % (42.2-75.2); PLATELET COUNT (AUTO) 179 K/uL (140-450); RED BLOOD CELL COUNT(AUTO) 3.61 MIL/uL (4.20-6.10); RED CELL DISTRIBUTION WIDTH 13.6 % (11.6-13.7); WHITE BLOOD COUNT (AUTO) 5.4 K/uL (4.8-10.8)
[2022-02-12] MEDS: BLOOD GLUCOSE MONITORING 1 DEV DEV FS SCH ×4 (07:11→22:30)
[2022-02-12] MEDS: PANTOPRAZOLE 40 MG TABEC PO SCH (07:11)
[2022-02-12] MEDS: INSULIN LISPRO SLIDING SCALE 100 UNITS/ML VIAL SUBQ PRN ×4 (07:19→22:58)
--- NOTE | 2022-02-12 07:30 | NUR ---
ENDORSE - PT - STABLE . I TOLD TO JUANIS PT IS FOR HD TODAY , HE HAVE TO GET THE CONSENT FROM PT FOR HD , AND HE HAVE TO INFORM [facility] JEREMY OLIVAREZ VERBALIZES UNDERSTANDING
--- NOTE | 2022-02-12 07:31 | NUR ---
RECEIVED BEDSIDE REPORT FROM SQUEAK RATTLE AND LEAK REPAIRER NURSE FOR CONTINUITY OF CARE. PT IS AOX4 AND NO S/S OF DISTRESS NOTED. BREATHING IS EVEN AND UNLABORED. DENIES PAIN. ON RA. PT IS STABLE.
[2022-02-12 07:40] LABS: ANION GAP 16.1 (8-16); CARBON DIOXIDE 26.3 mmol/L (21-32); POTASSIUM 3.4 mmol/L (3.5-5.1)
[2022-02-12 07:44] LABS: CREATININE 8.5 mg/dL (0.6-1.3)
[2022-02-12 07:59] LABS: PHOSPHORUS 5.8 mg/dL (2.5-4.9)
[2022-02-12 08:00] VITALS: BP 176/80
--- NOTE | 2022-02-12 08:32 | NUR ---
FNS CONSULT HAS BEEN RECEIVED FOR WOUNDS. PATIENT HAS BEEN RE-SCREENED HIGH RISK AND WILL BE SEEN WITHIN 1-2 DAYS OF RECEIVING THE FNS CONSULT. RONI CONCEPCION RD
[2022-02-12] MEDS ORDERED: FUROSEMIDE 20 MG TAB PO SCH (09:00)
[2022-02-12] MEDS ORDERED: NIFEdipine 30 MG TABER PO SCH (09:00)
[2022-02-12] MEDS: GABAPENTIN 300 MG CAP PO SCH (09:31)
[2022-02-12] MEDS: levETIRAcetam 100 MG/ML ORASYR PO SCH ×2 (09:31→22:30)
[2022-02-12] MEDS: ASPIRIN 81 MG TAB.CHEW PO SCH (09:32)
[2022-02-12] MEDS: lisinopriL 20 MG TAB PO SCH (09:32)
[2022-02-12 12:00] VITALS: BP 176/93
[2022-02-12] MEDS: SEVELAMER CARBONATE 800 MG TAB PO SCH ×2 (12:41→17:47)
--- NOTE | 2022-02-12 14:06 | NUR ---
DC PLANNING PATIENT IS A 56 YR OLD MALE WHO PRESENTED TO [facility]/ED ON 02/10/22 FOR RIGHT HAND NUMBNESS AND PAIN OF THE RIGHT HAND . FELIX MET WITH PATIENT AT BEDSIDE FOR THE PURPOSE OF DISCUSSING AND GATHERING COLLATERAL INFORMATION. PATIENT REPORTED LIVING WITH HIS MOTHER IN A SINGLE STORY HOME. PATIENT REPORTS EMERGENCY CONTACT AND MEDICAL DECISION MAKER OSVALDO GIORDANO [phone].SW INQUIRED ON A.D ; PATIENT DENIED CURRENTLY HAVING ONE IN PLACE. SW PROVIDED PATIENT WITH INFORMATION AND EDUCATION ON A.D. PATIENT WAS RECEPTIVE AND ACCEPTED PACKET PROVIDED BY FELIX. PATIENT REPORTS MEETING WITH PCP AND FURNACE CLERK REGULARLY. PATIENT REPORTED BARRIERS IN SEEKING [facility] WORKERS;SOCIAL WORK TO PROVIDE PATIENT WITH [facility] PHONE NUMBER DIRECTORY. PATIENT DENIES BARRIERS IN ACCESSING MEDICATIONS AND ACQUIRES MEDICATION FROM [facility]. PATIENT REPORTS BEING AMBULATORY WITH WALKER ASSISTANCE. PATIENT REPORTS THAT HE WILL BE RETURNING HOME ONCE DISCHARGED AND THAT MOTHER WILL BE AID IN HIS CARE IF NEEDED. SW SPOKE WITH PATIENT ABOUT FOLLOW UP CARE, CLIENT WAS RECEPTIVE AND PROVIDED SW WITH PERMISSION TO SCHEDULE FOLLOW UP APPT. SW WILL FOLLOW UP WITH PATIENT TO PROVIDE [facility] RESOURCES. Addendum: 02/16/22 at 1508 by Nan MACKAY FELIX PROVIDED PATIENT WITH [facility] PROVIDER DIRECTORY
--- NOTE | 2022-02-12 15:12 | NUR ---
02/12/22 RD INITIAL ASSESSMENT COMPLETED PLEASE REFER TO NUTRITION ASSESSMENT UNDER CARE ACTIVITY FOR ESTIMATED NUTRITIONAL NEEDS. 1. RECOMMEND RENAL+CCHO 60GM DIET TOLERATED -RECOMMEND MECHANICAL SOFT D/T PT WITH NO TEETH 2. MONITOR NUTRITION-RELATED LAB VALUES 3. RD TO FOLLOW-UP 3-5 DAYS, MODERATE RISK MEREDITH CONCEPCION RD Addendum: 02/12/22 at [address] MINISTERIO PROVIDED NUTRITION EDUCATION ON DIABETES AND CARB COUNTING WITH HANDOUTS ON 02/12/22. PT VERBALIZED UNDERSTANDING. MEREDITH [address]
[2022-02-12 16:00] VITALS: BP 164/76
[2022-02-12 20:00] VITALS: BP 150/85
--- NOTE | 2022-02-12 20:09 | NUR ---
HD ONGOING , HD NURSE AT [facility] , PER JUANIS RN PT SEEN BY DR Amaury CHANDLER .
[2022-02-12] MEDS: SIMVASTATIN 10 MG TAB PO SCH (22:30)
[2022-02-13] VITALS: BP 144/95
--- NOTE | 2022-02-13 | NUR ---
C/O SLEEPLESSNESS - REQUESTING SLEEPING PILL
[2022-02-13] MEDS: ZOLPIDEM 5 MG TAB PO PRN (00:27)
[2022-02-13 04:00] VITALS: BP 150/88
--- NOTE | 2022-02-13 04:00 | NUR ---
ROUNDS , NO COMPLAIN MADE
[2022-02-13 06:47] LABS: BASOPHILS # (AUTO) 0.1 K/uL (0.00-0.22); BASOPHILS % (AUTO) 1.4 % (0.0-2.0); EOSINOPHILS # (AUTO) 0.2 K/uL (0-0.4); EOSINOPHILS % (AUTO) 2.4 % (0.0-4.0); HEMATOCRIT 37.3 % (36-52); HEMOGLOBIN 12.7 g/dL (12.0-18.0); LYMPHOCYTES # (AUTO) 1.3 K/uL (2.0-11.5); LYMPHOCYTES % (AUTO) 19.9 % (20.5-51.1); MEAN CORPUSCULAR HEMOGLOBIN 32 pg (27-31); MEAN CORPUSCULAR HGB CONC 34 g/dL (33-37); MEAN CORPUSCULAR VOLUME 94.2 fL (80-94); MONOCYTES # (AUTO) 0.6 K/uL (0.8-1.0); MONOCYTES % (AUTO) 8.5 % (1.7-9.3); NEUTROPHILS # (AUTO) 4.4 K/uL (1.8-7.7); NEUTROPHILS % (AUTO) 67.8 % (42.2-75.2); PLATELET COUNT (AUTO) 217 K/uL (140-450); RED BLOOD CELL COUNT(AUTO) 3.96 MIL/uL (4.20-6.10); RED CELL DISTRIBUTION WIDTH 13.5 % (11.6-13.7); WHITE BLOOD COUNT (AUTO) 6.5 K/uL (4.8-10.8)
--- NOTE | 2022-02-13 07:00 | NUR ---
EM 463 - GAVE 10 HUMALOG /SQ - INFORMED DR. KOROMA
[2022-02-13] MEDS: INSULIN LISPRO SLIDING SCALE 100 UNITS/ML VIAL SUBQ PRN ×4 (07:20→16:24)
[2022-02-13] MEDS: PANTOPRAZOLE 40 MG TABEC PO SCH (07:21)
[2022-02-13] MEDS: BLOOD GLUCOSE MONITORING 1 DEV DEV FS SCH ×4 (07:21→21:46)
--- NOTE | 2022-02-13 07:46 | NUR ---
ENDORSED - PT - STABLE - I TOLD TO JEREMY OLIVAREZ I INFORMED DR KOROMA ABOUT BS OF THE PT. - HE HAVE TO FF UP IF THERE ID FURTHER ORDERS , JEREMY OLIVAREZ VERBALIZES UNDERSTANDING .
[2022-02-13 08:00] VITALS: BP 149/69
[2022-02-13 08:28] LABS: MAGNESIUM 2.3 mg/dL (1.8-2.4)
[2022-02-13] MEDS ORDERED: INSULIN LANTUS 100 UNITS/ML 10 ML VIAL SUBQ SCH ×2 (09:00→14:00)
[2022-02-13 09:04] LABS: ANION GAP 25.4 (8-16); CARBON DIOXIDE 18.8 mmol/L (21-32); POTASSIUM 4.2 mmol/L (3.5-5.1)
[2022-02-13] MEDS: ASPIRIN 81 MG TAB.CHEW PO SCH (09:50)
[2022-02-13] MEDS: levETIRAcetam 100 MG/ML ORASYR PO SCH ×2 (09:50→21:47)
[2022-02-13] MEDS: lisinopriL 20 MG TAB PO SCH (09:51)
[2022-02-13] MEDS: SEVELAMER CARBONATE 800 MG TAB PO SCH ×3 (09:51→17:43)
[2022-02-13] MEDS: GABAPENTIN 300 MG CAP PO SCH (09:52)
[2022-02-13] MEDS ORDERED: VANCOMYCIN 1,000 MG in DEXTROSE 5% 250 ML IV SCH (10:00)
[2022-02-13] MEDS: NIFEdipine 60 MG TABER PO SCH (10:58)
--- NOTE | 2022-02-13 13:11 | NUR ---
CALLED PICC LINE SERVICE AND INFORMED THEM OF THE PICC LINE INSERTION FOR THIS PT. THEY STATED THEY WILL CALL BACK WITH AN ETA.
--- NOTE | 2022-02-13 16:57 | NUR ---
PICC LINE NURSE ASKED FOR CLEARANCE FROM OPERATIONAL COMMUNICATION CHIEF TO PLACE PICC LINE THE PATIENT IS A DIALYSIS PT. CONTACTED DR. LAGUERRE VIA MESSAGE. HE STATED NOT TO PLACE PICC LINE IN PT UNLESS REALLY NECESSARY AND SAID ABX CAN BE GIVEN IN DIALYSIS UNIT.
--- NOTE | 2022-02-13 19:15 | NUR ---
RECEIVED PATIENT FROM JUANIS LUNA FOR CONTINUITY OF CARE. PATIENT WAS IN BED ALERT AND ORIENTED X 4. PATIENT ON ROOM AIR WITHOUT RESPIRATORY DISTRESS. PATIENT DENIES ANY PAIN/DISCOMFORT AT THIS TIME. PATIENT WAS ABLE TO EAT ALL OF HIS FOOD. BED WAS AT THE LOWEST LEVEL WITH 2 SIDE RAILS UP FOR ADJUSTMENT AND SAFETY. CALL LIGHT IS WITHIN REACH. PATIENT WAS ENCOURAGED TO USE THE CALL LIGHT FOR ALL ASSISTANCE AND NEEDS. [email or web address]
--- NOTE | 2022-02-13 19:16 | NUR ---
Patient's Plan of Care was discussed and reviewed with MACHINE SHOP INSTRUCTOR: KIKO. SAFETY MEASURES ARE IN PLACE. WILL CONTINUE TO MONITOR.
[2022-02-13 20:00] VITALS: BP 143/69
--- NOTE | 2022-02-13 21:15 | NUR ---
PATIENT RECEIVED ALL ORDERED MEDICATION WITHOUT INCIDENT. PATIENT DENIES ANY PAIN/DISCOMFORT AT THIS TIME. ALL SAFETY MEASURES ARE IN PLACE. PATIENT WAS GIVEN FRESH WATER. CALL LIGHT IN REACH. PATIENT WAS ENCOURAGED TO USE FOR ALL ASSISTANCE NEEDED. [email or web address]
[2022-02-13] MEDS: SIMVASTATIN 10 MG TAB PO SCH (21:47)
[2022-02-13] MEDS: carvediloL 6.25 MG TAB PO SCH (21:48)
--- NOTE | 2022-02-13 23:15 | NUR ---
PATIENT IN BED WATCHING TV. NO NOTED PAIN/DISCOMFORT AT THIS TIME. CALL LIGHT IN REACH. PATIENT ENCOURAGED TO USE CALL LIGHT IF ANY ASSISTANCE IS NEEDED. [email or web address]
[2022-02-14] MEDS: HYDROcodone/APAP 5/325 MG 1 TAB TAB PO PRN ×2 (00:12→22:35)
--- NOTE | 2022-02-14 01:15 | NUR ---
PATIENT REQUEST PAIN MEDICATION FOR PRESSURE IN PERINEAL AREA LOWER ABDOMEN. PAIN PRN WAS GIVEN AND WAS EFFECTIVE. PATIENT IS IN BED ASLEEP. RESPIRATION ARE EVEN AND UNLABORED. [email or web address]
[2022-02-14] MEDS: MORPHINE SULFATE 2 MG/ML SYR IVP PRN (02:52)
--- NOTE | 2022-02-14 02:52 | NUR ---
PATIENT REPORTS R ARM PAIN 8/10 PRN MORPHINE GIVEN. MED EDUCATION GIVEN. CALL LIGHT IS WITHIN REACH
[2022-02-14 04:00] VITALS: BP 150/73
--- NOTE | 2022-02-14 04:52 | NUR ---
PATIENT IN HIS BED ASLEEP. NO NOTED ACUTE RESPIRATORY DISTRESS. PATIENT IS BREATHING EVENLY. SIDE RAILS UP. ALL SAFETY MEASURES ARE IN PLACE. CALL LIGHT WITHIN REACH. PAIN RE-EVALUATION WAS DOCUMENT PLEASE SEE PAIN REASSESSMENT. [email or web address]
[2022-02-14] MEDS: BLOOD GLUCOSE MONITORING 1 DEV DEV FS SCH ×4 (06:44→20:36)
[2022-02-14] MEDS: PANTOPRAZOLE 40 MG TABEC PO SCH (06:44)
[2022-02-14] MEDS: INSULIN LISPRO SLIDING SCALE 100 UNITS/ML VIAL SUBQ PRN ×4 (06:45→20:38)
[2022-02-14 07:24] LABS: BASOPHILS # (AUTO) 0.1 K/uL (0.00-0.22); BASOPHILS % (AUTO) 1.3 % (0.0-2.0); EOSINOPHILS # (AUTO) 0.2 K/uL (0-0.4); EOSINOPHILS % (AUTO) 3.9 % (0.0-4.0); HEMATOCRIT 32.2 % (36-52); LYMPHOCYTES # (AUTO) 1.3 K/uL (2.0-11.5); LYMPHOCYTES % (AUTO) 20.4 % (20.5-51.1); MEAN CORPUSCULAR HEMOGLOBIN 32 pg (27-31); MEAN CORPUSCULAR HGB CONC 34 g/dL (33-37); MEAN CORPUSCULAR VOLUME 93.5 fL (80-94); MONOCYTES # (AUTO) 0.5 K/uL (0.8-1.0); MONOCYTES % (AUTO) 8.7 % (1.7-9.3); NEUTROPHILS # (AUTO) 4.1 K/uL (1.8-7.7); NEUTROPHILS % (AUTO) 65.7 % (42.2-75.2); PLATELET COUNT (AUTO) 209 K/uL (140-450); RED BLOOD CELL COUNT(AUTO) 3.45 MIL/uL (4.20-6.10); RED CELL DISTRIBUTION WIDTH 13.7 % (11.6-13.7); WHITE BLOOD COUNT (AUTO) 6.2 K/uL (4.8-10.8)
[2022-02-14 07:25] LABS: MAGNESIUM 2.4 mg/dL (1.8-2.4); PHOSPHORUS 5.9 mg/dL (2.5-4.9)
[2022-02-14 07:30] LABS: ANION GAP 17.7 (8-16); CARBON DIOXIDE 25.9 mmol/L (21-32); POTASSIUM 3.6 mmol/L (3.5-5.1)
--- NOTE | 2022-02-14 07:35 | NUR ---
GAVE SHIFT REPORT TO AYDE LUNA FOR CONTINUITY OF CARE. PATIENT IS SITTING UP IN BED AWAKE AND ORIENTED. PATIENT IS STABLE. [email or web address]
--- NOTE | 2022-02-14 07:37 | NUR ---
RECEIVED PATIENT REPORT FROM PSYCHIATRIC LPN RN FOR CONTINUITY OF CARE. PATIENT WAS IN BED ALERT AND ORIENTED X 4. PATIENT ON ROOM AIR WITHOUT RESPIRATORY DISTRESS. PATIENT DENIES ANY PAIN/DISCOMFORT AT THIS TIME. IV SITE ON RAC 20G. SALINE LOCKED. PLAN OF CARE DISCUSSED. BED WAS AT THE LOWEST LEVEL WITH 2 SIDE RAILS UP FOR ADJUSTMENT AND SAFETY. CALL LIGHT IS WITHIN REACH. PATIENT WAS ENCOURAGED TO USE THE CALL LIGHT FOR ALL ASSISTANCE AND NEEDS. WILL CONTINUE TO MONITOR.
[2022-02-14 08:00] VITALS: BP 148/76
[2022-02-14] MEDS: lisinopriL 20 MG TAB PO SCH (09:00)
[2022-02-14] MEDS: NIFEdipine 60 MG TABER PO SCH (09:00)
[2022-02-14] MEDS: carvediloL 6.25 MG TAB PO SCH ×2 (09:00→20:33)
[2022-02-14] MEDS: levETIRAcetam 100 MG/ML ORASYR PO SCH ×2 (09:31→20:35)
[2022-02-14] MEDS: SEVELAMER CARBONATE 800 MG TAB PO SCH ×3 (09:31→17:27)
[2022-02-14] MEDS: ASPIRIN 81 MG TAB.CHEW PO SCH (09:31)
[2022-02-14] MEDS: GABAPENTIN 300 MG CAP PO SCH (09:31)
[2022-02-14] MEDS: INSULIN LANTUS 100 UNITS/ML 10 ML VIAL SUBQ SCH (09:32)
--- NOTE | 2022-02-14 09:55 | NUR ---
ALL SCHEDULED MEDS GIVEN. PT IS STABLE. NO DISTRESS NOTED. WILL CONTINUE TO MONITOR.
--- NOTE | 2022-02-14 12:30 | NUR ---
ALL SCHEDULED MEDS GIVEN. PT IS STABLE. NO DISTRESS NOTED. WILL CONTINUE TO MONITOR.
[2022-02-14] MEDS ORDERED: HYDROCOLLOID DRESSING TP SCH (13:00)
--- NOTE | 2022-02-14 15:34 | NUR ---
PATIENT UNDERGOING HD TREATMENT. DIALYSIS NURSE AT BEDSIDE
[2022-02-14 16:00] VITALS: BP 156/71
--- NOTE | 2022-02-14 18:39 | NUR ---
PATIENT COMPLETED HD TREATMENT. 3 L OUTPUT
--- NOTE | 2022-02-14 19:28 | NUR ---
ENDORSED TO NURSE INTERN NURSE FOR CONTINUITY OF CARE. PT IS STABLE.
--- NOTE | 2022-02-14 19:30 | NUR ---
RECEIVED PT FROM AM NURSE FOR CONTINUITY OF CARE. PT IS STABLE.
[2022-02-14] MEDS: SIMVASTATIN 10 MG TAB PO SCH (20:35)
[2022-02-14] MEDS: ZOLPIDEM 5 MG TAB PO PRN ×2 (22:32→22:33)
--- NOTE | 2022-02-14 23:30 | NUR ---
PT IS SLEEPING AT THIS TIME. RESPIRATIONS EVEN AND UNLABORED,NO DISTRESS NOTED
[2022-02-15] VITALS: BP 131/62
--- NOTE | 2022-02-15 02:00 | NUR ---
PATIENT SLEEPING COMFORTABLY IN BED,BREATHING EVEN AND UNLABORED,NO DISTRESS NOTED.
--- NOTE | 2022-02-15 04:00 | NUR ---
PATIENT ASLEEP, BREATHING EVEN AND UNLABORED , NO DISTRESS NOTED.
--- NOTE | 2022-02-15 06:06 | NUR ---
PT ASLEEP , BREATHING EVEN AND UNLABORED,NO DISTRESS NOTED.
[2022-02-15] MEDS: PANTOPRAZOLE 40 MG TABEC PO SCH (06:51)
[2022-02-15 06:57] LABS: BASOPHILS # (AUTO) 0.1 K/uL (0.00-0.22); BASOPHILS % (AUTO) 2.1 % (0.0-2.0); EOSINOPHILS # (AUTO) 0.2 K/uL (0-0.4); EOSINOPHILS % (AUTO) 2.8 % (0.0-4.0); HEMATOCRIT 34.5 % (36-52); HEMOGLOBIN 11.7 g/dL (12.0-18.0); LYMPHOCYTES % (AUTO) 17.7 % (20.5-51.1); MEAN CORPUSCULAR HEMOGLOBIN 32 pg (27-31); MEAN CORPUSCULAR HGB CONC 34 g/dL (33-37); MEAN CORPUSCULAR VOLUME 93.3 fL (80-94); MONOCYTES # (AUTO) 0.5 K/uL (0.8-1.0); NEUTROPHILS % (AUTO) 68.4 % (42.2-75.2); PLATELET COUNT (AUTO) 229 K/uL (140-450); RED BLOOD CELL COUNT(AUTO) 3.69 MIL/uL (4.20-6.10); RED CELL DISTRIBUTION WIDTH 13.8 % (11.6-13.7); WHITE BLOOD COUNT (AUTO) 5.8 K/uL (4.8-10.8)
[2022-02-15] MEDS: BLOOD GLUCOSE MONITORING 1 DEV DEV FS SCH ×4 (07:02→21:40)
[2022-02-15 07:11] LABS: ANION GAP 13.4 (8-16); CARBON DIOXIDE 27.1 mmol/L (21-32); POTASSIUM 3.5 mmol/L (3.5-5.1)
[2022-02-15 07:24] LABS: MAGNESIUM 2.3 mg/dL (1.8-2.4); PHOSPHORUS 5.7 mg/dL (2.5-4.9)
--- NOTE | 2022-02-15 07:34 | NUR ---
endorsed pt to am nurse for continuity of care.ot is stable.
--- NOTE | 2022-02-15 07:35 | NUR ---
RECEIVED PATIENT REPORT FROM STONE AND PLATE PREPARER APPRENTICE RN FOR CONTINUITY OF CARE. PATIENT WAS IN BED ALERT AND ORIENTED X 4. PATIENT ON ROOM AIR WITHOUT RESPIRATORY DISTRESS. PATIENT DENIES ANY PAIN/DISCOMFORT AT THIS TIME. IV SITE ON RAC 20G. SALINE LOCKED. HAS LEFT AV SHUNT. PLAN OF CARE DISCUSSED. BED WAS AT THE LOWEST LEVEL WITH 2 SIDE RAILS UP FOR ADJUSTMENT AND SAFETY. CALL LIGHT IS WITHIN REACH. PATIENT WAS ENCOURAGED TO USE THE CALL LIGHT FOR ALL ASSISTANCE AND NEEDS. WILL CONTINUE TO MONITOR.
[2022-02-15 08:00] VITALS: BP 157/79
[2022-02-15 08:16] LABS: CREATININE 6.9 mg/dL (0.6-1.3)
[2022-02-15] MEDS: lisinopriL 20 MG TAB PO SCH (08:50)
[2022-02-15] MEDS: ASPIRIN 81 MG TAB.CHEW PO SCH (08:50)
[2022-02-15] MEDS: NIFEdipine 60 MG TABER PO SCH (08:50)
[2022-02-15] MEDS: SEVELAMER CARBONATE 800 MG TAB PO SCH ×3 (08:51→16:19)
[2022-02-15] MEDS: levETIRAcetam 100 MG/ML ORASYR PO SCH ×2 (08:51→21:26)
[2022-02-15] MEDS: carvediloL 6.25 MG TAB PO SCH ×2 (08:51→21:24)
[2022-02-15] MEDS: GABAPENTIN 300 MG CAP PO SCH (08:51)
[2022-02-15] MEDS: INSULIN LANTUS 100 UNITS/ML 10 ML VIAL SUBQ SCH (08:56)
--- NOTE | 2022-02-15 09:45 | NUR ---
ALL SCHEDULED MEDS GIVEN. PT IS STABLE. NO DISTRESS NOTED. WILL CONTINUE TO MONITOR.
[2022-02-15] MEDS ORDERED: VANCOMYCIN 1,000 MG in DEXTROSE 5% 250 ML IV SCH (10:00)
--- NOTE | 2022-02-15 11:55 | NUR ---
IV WAS INFILTRATED. INSERTED NEW IV ON LAC 20G. INTACT AND PATENT. Addendum: 02/15/22 at 1156 by Pacheco Gaines RN RN NOT LAC. RAC 20 G.
[2022-02-15] MEDS: INSULIN LISPRO SLIDING SCALE 100 UNITS/ML VIAL SUBQ PRN ×2 (12:34→21:48)
--- NOTE | 2022-02-15 13:27 | NUR ---
DR. CHANDLER AT PATIENT BEDSIDE DISCUSSING PLAN OF CARE
[2022-02-15 16:00] VITALS: BP 110/57
--- NOTE | 2022-02-15 16:55 | NUR ---
ALL SCHEDULED MEDS GIVEN. PT IS STABLE. NO DISTRESS NOTED. WILL CONTINUE TO MONITOR
--- NOTE | 2022-02-15 19:10 | NUR ---
ENDORSED TO PROFESSIONAL SKATER NURSE FOR CONTINUITY OF CARE. PT IS STABLE.
[2022-02-15] MEDS: SIMVASTATIN 10 MG TAB PO SCH (21:27)
[2022-02-15] MEDS: ZOLPIDEM 5 MG TAB PO PRN (21:47)
[2022-02-16] VITALS: BP 122/59
[2022-02-16] MEDS: MORPHINE SULFATE 2 MG/ML SYR IVP PRN (03:39)
[2022-02-16 06:16] LABS: MAGNESIUM 2.2 mg/dL (1.8-2.4); PHOSPHORUS 6.4 mg/dL (2.5-4.9)
[2022-02-16 06:19] LABS: ANION GAP 15.4 (8-16); POTASSIUM 3.4 mmol/L (3.5-5.1)
[2022-02-16 06:21] LABS: BASOPHILS # (AUTO) 0.1 K/uL (0.00-0.22); BASOPHILS % (AUTO) 1.3 % (0.0-2.0); EOSINOPHILS # (AUTO) 0.2 K/uL (0-0.4); EOSINOPHILS % (AUTO) 3.1 % (0.0-4.0); HEMOGLOBIN 11.9 g/dL (12.0-18.0); LYMPHOCYTES # (AUTO) 1.3 K/uL (2.0-11.5); LYMPHOCYTES % (AUTO) 19.4 % (20.5-51.1); MEAN CORPUSCULAR HEMOGLOBIN 32 pg (27-31); MEAN CORPUSCULAR HGB CONC 34 g/dL (33-37); MEAN CORPUSCULAR VOLUME 93.8 fL (80-94); MONOCYTES # (AUTO) 0.5 K/uL (0.8-1.0); MONOCYTES % (AUTO) 7.6 % (1.7-9.3); NEUTROPHILS # (AUTO) 4.5 K/uL (1.8-7.7); NEUTROPHILS % (AUTO) 68.6 % (42.2-75.2); PLATELET COUNT (AUTO) 238 K/uL (140-450); RED BLOOD CELL COUNT(AUTO) 3.73 MIL/uL (4.20-6.10); RED CELL DISTRIBUTION WIDTH 13.7 % (11.6-13.7); WHITE BLOOD COUNT (AUTO) 6.6 K/uL (4.8-10.8)
[2022-02-16] MEDS: PANTOPRAZOLE 40 MG TABEC PO SCH (06:48)
[2022-02-16] MEDS: BLOOD GLUCOSE MONITORING 1 DEV DEV FS SCH ×2 (06:48→12:26)
--- NOTE | 2022-02-16 07:11 | NUR ---
RECEIVED ENDORSEMENT FROM PODIATRIST ORTHOPEDIC NURSE FOR CONTINUITY CARE. PATIENT AWAKE ON PHONE NO DISTRESS NOTE. ALL SAFETY MEASURE IN PLACE.
[2022-02-16 08:00] VITALS: BP 151/69
[2022-02-16] MEDS: lisinopriL 20 MG TAB PO SCH (09:23)
[2022-02-16] MEDS: GABAPENTIN 300 MG CAP PO SCH (09:23)
[2022-02-16] MEDS: NIFEdipine 60 MG TABER PO SCH (09:24)
[2022-02-16] MEDS: carvediloL 6.25 MG TAB PO SCH (09:24)
[2022-02-16] MEDS: levETIRAcetam 100 MG/ML ORASYR PO SCH (09:25)
[2022-02-16] MEDS: ASPIRIN 81 MG TAB.CHEW PO SCH (09:26)
[2022-02-16] MEDS: INSULIN LANTUS 100 UNITS/ML 10 ML VIAL SUBQ SCH (09:31)
[2022-02-16] MEDS: SEVELAMER CARBONATE 800 MG TAB PO SCH ×2 (09:36→12:26)
--- NOTE | 2022-02-16 09:50 | NUR ---
GIVEN ALL DUE MEDICATION TOLERATED WELL. ALL SAFETY MEASURE IN PLACE.
[2022-02-16] MEDS ORDERED: NIFE-144 PO (10:47)
[2022-02-16] MEDS ORDERED: AMOX-999 PO (11:00)
[2022-02-16] MEDS ORDERED: LEVO-315 PO (11:00)
--- NOTE | 2022-02-16 11:08 | NUR ---
PT IS IN BED, USING HIS CELLPHONE. BREATHING IS EVEN AND UNLABORED. NO SIGNS OF DISTRESS. DENIES PAIN. SAFETY PRECAUTIONS IN PLACE. WILL CONTINUE TO MONITOR.
[2022-02-16] MEDS: INSULIN LISPRO SLIDING SCALE 100 UNITS/ML VIAL SUBQ PRN (12:26)
--- NOTE | 2022-02-16 12:40 | NUR ---
BLOOD SUGAR CHECK DONE. INSULIN COVERAGE FOR BS 285 GIVEN. PT TOLERATED WELL. CALL LIGHT WITHIN REACH. SAFETY PRECAUTIONS IN PLACE.
[2022-02-16 13:04] VITALS: BP 151/65
--- NOTE | 2022-02-16 14:00 | NUR ---
DISCHARGE PAPER DISCUSSED WITH THE PT. PT ASKED QUESTIONS. VERBALIZED UNDERSTANDING AND SIGNED ALL DOCS. PT IS STABLE. NO DISTRESS NOTED. GETTING READY TO GO HOME.
--- NOTE | 2022-02-16 14:20 | NUR ---
PT DC HOME. NURSE WHEELED PT OUT. REMOVED IV CATHETER IS INTACT. REMOVED WRIST BAND. ALL BELONGINGS TAKEN UPON DISCHARGE. PT IS STABLE.
== END 2022-02-16 15:43 | disposition home or self-care (01) | DRG 602 ==
LOC: MED 17:50 → MTU 22:22
PROC: 5A1D70Z Performance of Urinary Filtration, Intermittent, Less than 6 Hours Per Day (ICD-10-PCS; principal; 2022-02-12)
PROC: 5A1D70Z Performance of Urinary Filtration, Intermittent, Less than 6 Hours Per Day (ICD-10-PCS; 2022-02-14)
DX: L03.113 Cellulitis of right upper limb (principal); I50.43 Acute on chronic combined systolic (congestive) and diastolic (congestive) heart failure; N18.6 End stage renal disease; N17.0 Acute kidney failure with tubular necrosis; E87.1 Hypo-osmolality and hyponatremia; E44.1 Mild protein-calorie malnutrition; I13.2 Hypertensive heart and chronic kidney disease with heart failure and with stage 5 chronic kidney disease, or end stage renal disease; M86.8X7 Other osteomyelitis, ankle and foot; I69.354 Hemiplegia and hemiparesis following cerebral infarction affecting left non-dominant side; L97.515 Non-pressure chronic ulcer of other part of right foot with muscle involvement without evidence of necrosis; E11.69 Type 2 diabetes mellitus with other specified complication; G40.909 Epilepsy, unspecified, not intractable, without status epilepticus; I25.10 Atherosclerotic heart disease of native coronary artery without angina pectoris; L03.031 Cellulitis of right toe; G56.01 Carpal tunnel syndrome, right upper limb; M65.841 Other synovitis and tenosynovitis, right hand; K21.9 Gastro-esophageal reflux disease without esophagitis; E11.22 Type 2 diabetes mellitus with diabetic chronic kidney disease; E11.621 Type 2 diabetes mellitus with foot ulcer; E11.40 Type 2 diabetes mellitus with diabetic neuropathy, unspecified; E78.5 Hyperlipidemia, unspecified; E87.6 Hypokalemia; E66.9 Obesity, unspecified; E83.39 Other disorders of phosphorus metabolism; E11.65 Type 2 diabetes mellitus with hyperglycemia; E11.51 Type 2 diabetes mellitus with diabetic peripheral angiopathy without gangrene; Z20.822 Contact with and (suspected) exposure to COVID-19; I49.3 Ventricular premature depolarization; J45.909 Unspecified asthma, uncomplicated; E78.00 Pure hypercholesterolemia, unspecified; Z99.2 Dependence on renal dialysis; Z79.899 Other long term (current) drug therapy; Z79.82 Long term (current) use of aspirin; Z68.31 Body mass index [BMI] 31.0-31.9, adult
CPT/HCPCS: 36415; 71045; 73130; 73200; 73630; 80048; 80053; 80202; 82150; 82948; 83036; 83605; 83690; 83735; 83880; 84100; 84134; 84443; 85025; 85610; 85651; 85730; 86140; 87040; 87070; 87081; 87205; 93005; 93971; 96365; 96375; 99285; J0696; J1644; J1815; J2270; J2543; J3370; J7060; Q0092

== ENCOUNTER 2022-04-28 08:27 | Emergency (ER) | payer OTHER ==
[~2022-04-28] VITALS: Ht 185.4 cm; Wt 87.5 kg
[~2022-04-28 08:27] MED LIST changes: +AMOX-999 PO; -ATEN50TA8 PO; -BACI1PAC6 TP; -CEPH-588 PO; -CEPH250C16 PO; +LEVO-315 PO; -PREG300C PO
[2022-04-28 08:45] VITALS: BP 170/77
--- NOTE | 2022-04-28 08:45 | NUR ---
pt transferred to bed 11
--- NOTE | 2022-04-28 08:53 | NUR ---
57 y/o male biba from home, pt presents to ed with aloc, frit mixer found pt on floor, unwitnessed fall, unknown time of fall or loc. pt has dialysis shunt on left upper arm, dialysis wednesday, , wednesday. pt was found this morning around 0750, normally a&ox4, now a&ox1 to name. glucose on scene 30, pt had iv established on right arm and given glucagon, glucose upon arrival 69. skin is pink/warm/dry. does not ambulate at this time, stand and pivot. lungs clear bl, heart rate even and regular at 55. patient positioned for comfort. hob elevated. bed down. ermd made aware of pt. pmh: renal disease nka med: unable to obtain
--- NOTE | 2022-04-28 09:10 | NUR ---
pt now a&ox4 at this time, does not recall how he arrived. pt from severe weakness intially when he first arrived to mild weakness in upper and lower extremities.
[2022-04-28 09:50] LABS: BASOPHILS % (AUTO) 0.5 % (0.0-2.0); EOSINOPHILS # (AUTO) 0.1 K/uL (0-0.4); HEMATOCRIT 26.9 % (36-52); HEMOGLOBIN 9.3 g/dL (12.0-18.0); LYMPHOCYTES # (AUTO) 0.6 K/uL (2.0-11.5); LYMPHOCYTES % (AUTO) 8.1 % (20.5-51.1); MEAN CORPUSCULAR HEMOGLOBIN 32 pg (27-31); MEAN CORPUSCULAR HGB CONC 34 g/dL (33-37); MEAN CORPUSCULAR VOLUME 91.9 fL (80-94); MONOCYTES # (AUTO) 0.3 K/uL (0.8-1.0); MONOCYTES % (AUTO) 4.7 % (1.7-9.3); NEUTROPHILS # (AUTO) 6.1 K/uL (1.8-7.7); NEUTROPHILS % (AUTO) 85.7 % (42.2-75.2); PLATELET COUNT (AUTO) 171 K/uL (140-450); RED BLOOD CELL COUNT(AUTO) 2.93 MIL/uL (4.20-6.10); RED CELL DISTRIBUTION WIDTH 14.2 % (11.6-13.7); WHITE BLOOD COUNT (AUTO) 7.2 K/uL (4.8-10.8)
--- NOTE | 2022-04-28 10:04 | NUR ---
spoke with Latha (mother) [phone], update given at this time
[2022-04-28 10:23] LABS: ALBUMIN 2.9 g/dL (3.4-5.0); ANION GAP 9.8 (8-16); CARBON DIOXIDE 31.6 mmol/L (21-32); POTASSIUM 3.4 mmol/L (3.5-5.1); TOTAL BILIRUBIN 0.5 mg/dL (0.0-1.0)
--- NOTE | 2022-04-28 11:04 | NUR ---
isabella swabbed at this time
--- NOTE | 2022-04-28 12:09 | NUR ---
pt given sugar free apple sauce, jellow and crackers at this time
[2022-04-28 13:01] VITALS: BP 196/84
--- NOTE | 2022-04-28 13:02 | NUR ---
Patient discharged with v/s stable. Written and verbal after care instructions given and explained. Patient verbalized understanding. Wheel Chair Assisted with sister Suad to car. All questions addressed prior to discharge. Advised to follow up with PMD.
== END 2022-04-28 13:02 | disposition home or self-care (01) ==
LOC: MED 08:27
DX: E11.22 Type 2 diabetes mellitus with diabetic chronic kidney disease (principal); I13.11 Hypertensive heart and chronic kidney disease without heart failure, with stage 5 chronic kidney disease, or end stage renal disease; N18.6 End stage renal disease; Z20.822 Contact with and (suspected) exposure to COVID-19; F17.210 Nicotine dependence, cigarettes, uncomplicated; Z79.4 Long term (current) use of insulin; Z79.899 Other long term (current) drug therapy; Z99.2 Dependence on renal dialysis; Z98.890 Other specified postprocedural states
CPT/HCPCS: 36415; 71045; 80053; 83880; 84484; 85025; 87426; 93005; 99285; Q0092

== ENCOUNTER 2022-04-30 10:13 | Emergency (ER) | payer OTHER ==
[~2022-04-30] VITALS: Ht 182.9 cm; Wt 87.5 kg
[2022-04-30 10:15] VITALS: BP 183/76
[2022-04-30] MEDS ORDERED: KETOROLAC 60 MG/2 ML VIAL IM ONE (10:35)
--- NOTE | 2022-04-30 10:35 | NUR ---
WALKED IN C.O L FOOT PAIN AFTER A FALL. PT REPORTS HE HAD GROUND LEVEL FALL AT HOME D/T HYPOGLYCEMIA AND WAS EVALUATED AT AN ER AND WAS TREATED FOR THE HYPOGLYCEMIA BUT WAS NOT EVALUATED FOR THE FOOT. PT STILL C/O PAIN AND DISCOMFORT. HX DM, HTN, DIALYSIS. STATES TU,THRS, SAT DIALYSIS. DENIES NUMBNESS OR TINLING ON FOOT. HX ULCER ON RIGHT FOOT AND WAS TOLD BY HIS SALES SERVICE ASSISTANT TO BE SEEN IN ER FOR LEFT FOOT PAIN. AAOX4, AMBULATORY, VITALS STABLE.
--- NOTE | 2022-04-30 12:10 | NUR ---
xr at bedside
[2022-04-30] MEDS ORDERED: IBUP-1842 PO (13:04)
[2022-04-30] MEDS ORDERED: ACETAMINOPHEN EXTRA STRENGTH 500 MG TAB PO ONE (13:05)
[2022-04-30 13:11] VITALS: BP 163/85
--- NOTE | 2022-04-30 13:36 | NUR ---
AAPLIED 5 INCH FOBERGLASS FABRICATED POSTERIOR LONG LEG SPLINT ON THE LEFT LEG. SECURED SPLINT USING X4 ARJUN WRAPS. +CMS BEFORE/AFTER. PT DID NOT COMPLAIN OF ANY PAIN OR DISCOMFORT AT THIS TIME DUE TO THE SPLINT. PA NOTIFIED.
== END 2022-04-30 13:40 | disposition home or self-care (01) ==
LOC: MED 10:13
DX: S82.832A Other fracture of upper and lower end of left fibula, initial encounter for closed fracture (principal); S82.392A Other fracture of lower end of left tibia, initial encounter for closed fracture; M77.8 Other enthesopathies, not elsewhere classified; E11.9 Type 2 diabetes mellitus without complications; I10 Essential (primary) hypertension; E11.22 Type 2 diabetes mellitus with diabetic chronic kidney disease; I12.0 Hypertensive chronic kidney disease with stage 5 chronic kidney disease or end stage renal disease; N18.6 End stage renal disease; Z86.73 Personal history of transient ischemic attack (TIA), and cerebral infarction without residual deficits; Z99.2 Dependence on renal dialysis; Z79.82 Long term (current) use of aspirin; Z79.899 Other long term (current) drug therapy; W19.XXXA Unspecified fall, initial encounter; Y93.89 Activity, other specified; Y92.89 Other specified places as the place of occurrence of the external cause; Y99.8 Other external cause status
CPT/HCPCS: 29505; 73590; 73610; 73630; 96374; 99284; J1885

== ENCOUNTER 2022-05-03 07:17 | Inpatient (IN) | payer OTHER ==
[~2022-05-03] VITALS: Ht 182.9 cm; Wt 85.0 kg
[~2022-05-03 07:17] MED LIST changes: +IBUP-1842 PO
--- NOTE | 2022-05-03 07:18 | NUR ---
Patient BIBA to bed 10.
[2022-05-03] MEDS ORDERED: LEVOFLOXACIN 500 MG/D5W PREMIX 100 ML IV ONE (07:20)
[2022-05-03] MEDS ORDERED: INSULIN REGULAR, HUMAN 100 UNIT/ML VIAL IVP ONE (07:20)
[2022-05-03 07:22] VITALS: BP 159/92
--- NOTE | 2022-05-03 07:32 | NUR ---
EMT BEDSIDE FOR EKG
--- NOTE | 2022-05-03 07:35 | NUR ---
SAMANTHA SWAB COLLECTED AND HANDED TO EDUCATION NURSE SANTOS
[2022-05-03] MEDS ORDERED: cefTRIAXone 1,000 MG VIAL ONE (07:36)
--- NOTE | 2022-05-03 07:40 | NUR ---
LAB BEDSIDE FOR BLOOD DRAW
--- NOTE | 2022-05-03 07:40 | NUR ---
RT BEDSIDE FOR ABG
--- NOTE | 2022-05-03 08:06 | NUR ---
57/M BIBA FROM HOME. PER EMS PATIENTS MOM CALLED 911 STATING PATIENT WAS FEELING WEAK AND SOB. EMS STATES ON SCENE PATIENTS O2 WAS IN THE HIGH 70s ON ROOM AIR AND BS READING "HIGH." STATES PATIENT WAS PLACED ON 3L NC BRINGING O2 UP TO 91%. PATIENT REPORTS PRODUCTIVE COUGH AND SOB X2 DAYS, STATES NEPHEW AT HOME IS ALSO SICK. UPON ARRIVAL PATIENTS O2 83% ON ROOM AIR AND BLOOD SUGAR READING "HIGH." PATIENT PLACED ON 3L NC, DR. CASSIDY BEDSIDE UPON PATIENTS ARRIVAL. PATIENT PLACED IN GOWN ON BEDSIDE FIELD APPLICATION ENGINEER. PATIENT REPORTS NOT TAKING IS AT HOME MEDICATIONS IN TWO DAYS, DENIES N/V/D, CP.
[2022-05-03 08:07] LABS: BASOPHILS % (AUTO) 0.3 % (0.0-2.0); EOSINOPHILS % (AUTO) 0.1 % (0.0-4.0); HEMATOCRIT 26.4 % (36-52); HEMOGLOBIN 8.6 g/dL (12.0-18.0); LYMPHOCYTES # (AUTO) 0.2 K/uL (2.0-11.5); MEAN CORPUSCULAR HEMOGLOBIN 31 pg (27-31); MEAN CORPUSCULAR HGB CONC 33 g/dL (33-37); MEAN CORPUSCULAR VOLUME 94.9 fL (80-94); MONOCYTES # (AUTO) 0.1 K/uL (0.8-1.0); MONOCYTES % (AUTO) 3.5 % (1.7-9.3); NEUTROPHILS # (AUTO) 3.2 K/uL (1.8-7.7); PLATELET COUNT (AUTO) 176 K/uL (140-450); RED BLOOD CELL COUNT(AUTO) 2.78 MIL/uL (4.20-6.10); RED CELL DISTRIBUTION WIDTH 14.4 % (11.6-13.7); WHITE BLOOD COUNT (AUTO) 3.6 K/uL (4.8-10.8)
--- NOTE | 2022-05-03 08:11 | NUR ---
X-Ray at bedside.
[2022-05-03 08:25] LABS: LYMPHOCYTES % (AUTO) 5.3 % (20.5-51.1); NEUTROPHILS % (AUTO) 90.8 % (42.2-75.2)
[2022-05-03 08:57] LABS: ALBUMIN 3.2 g/dL (3.4-5.0); ANION GAP 23.5 (8-16); CARBON DIOXIDE 23.3 mmol/L (21-32); POTASSIUM 4.8 mmol/L (3.5-5.1)
[2022-05-03 09:03] LABS: CREATININE 6.5 mg/dL (0.6-1.3)
--- NOTE | 2022-05-03 09:14 | NUR ---
Patient moved to ER Bed-1 for isolation precautions.
--- NOTE | 2022-05-03 09:15 | NUR ---
Pt report given to JEREMY SUN. Transfer of care at this time.
--- NOTE | 2022-05-03 09:39 | NUR ---
PT STATE DUE TO DIALYSIS HE PRODUCES VERY LITTLE URINE AND "MOST LIKELY WILL NOT BE ABLE TO PROVIDE URINE TODAY."
--- NOTE | 2022-05-03 10:39 | NUR ---
PT 02 SAT DROPPED INTO 80s WHILE SLEEPING. PT WAS AWOKEN AND COACHED TO DEEP BREATH. O2 SAT INCREASED TO 96%.
[2022-05-03] MEDS ORDERED: POTASSIUM CHLORIDE 10 MEQ TABER PO PRN (13:25)
[2022-05-03] MEDS ORDERED: ZOLPIDEM 5 MG TAB PO PRN (13:25)
[2022-05-03] MEDS ORDERED: ONDANSETRON 4 MG/2 ML VIAL IM/IVP PRN (13:25)
[2022-05-03] MEDS ORDERED: DOCUSATE SODIUM 100 MG GELCAP PO PRN (13:25)
[2022-05-03] MEDS ORDERED: guaiFENesin DM 200/20 MG-10 ML 10 ML UDC PO PRN (13:25)
[2022-05-03] MEDS ORDERED: HYDROcodone/APAP 7.5/325 MG 1 TAB PO PRN (13:25)
[2022-05-03] MEDS ORDERED: ALBUTEROL SULFATE/IPRATROPIU 3 ML SOL IH PRN (13:30)
[2022-05-03 15:30] LABS: CHOL/HDL RATIO 2.2 (1-4.5); FREE T4 (FREE THYROXINE) 1.24 ng/dL (0.76-1.46); MAGNESIUM 2.1 mg/dL (1.8-2.4); THYROID STIMULATING HORMONE 1.45 uIU/mL (0.34-3.74)
[2022-05-03 15:51] LABS: PROTHROMBIN TIME 12.2 secs (10.8-13.4)
[2022-05-03 16:13] VITALS: BP 152/81
--- NOTE | 2022-05-03 16:13 | NUR ---
RECEIVED PT FROM MILK INSPECTOR, VIA DARIAN, PT IS PT'S LLE IS ON A ALERT AND ORIENTED, ON O2 2L NC, WAS PLACED ON DROPLET ISOLATION FOR BEING POSITIVE FOR RAPID COVID LIZET, IV LINE NOTED ON THE RAC G. 20 ON SALINE LOCK, PT'S LLE HAS A SPLINT IN PLACE DUE TO A FALL AT HOME, NO SIGN OF DISTRESS NOTED AND WILL,CONTINUE TO MONITOR PT.
--- NOTE | 2022-05-03 16:15 | NUR ---
Patient will be admitted to care of dr valente. Admited to TELE. Will go to room 117. Belongings list completed. Report to brandy sexton.
--- NOTE | 2022-05-03 16:45 | NUR ---
MRSA SWAB WAS DONE TO PT NOW AND SAMPLE WAS SENT TO LAB.
[2022-05-03] MEDS ORDERED: DEXTROSE 50% 50 ML SYR IVP PRN (17:50)
--- NOTE | 2022-05-03 18:10 | NUR ---
PT'S BLOOD GLUCOSE WAS CHECKED NOW AND SHOWED "HI" GREATER THAN 600, NOTIFIED DR. KOROMA, WAITING FOR FURTHER ORDERS
--- NOTE | 2022-05-03 18:16 | NUR ---
RECEIVED A TELEPHONE ORDER FROM DR. KOROMA TO GIVE PT INSULIN OF 12 UNITS NOW.
--- NOTE | 2022-05-03 18:17 | NUR ---
PT WAS GIVEN INSULIN 12 UNITS ON THE ABDOMEN NOW FOR BLOOD GLUCOSE OF GREATER THAN [address] KOROMA'S TELEPHONE ORDER.
[2022-05-03] MEDS: INSULIN LISPRO SLIDING SCALE 100 UNITS/ML VIAL SUBQ PRN ×2 (18:19→22:18)
--- NOTE | 2022-05-03 18:34 | NUR ---
PT COMPLAINED OF NAUSEA AND WAS MEDICATED NOW WITH ZOFRAN.
[2022-05-03] MEDS: ALBUTEROL SULFATE/IPRATROPIU 3 ML SOL IH SCH (19:41)
[2022-05-03 20:00] VITALS: BP 148/70
--- NOTE | 2022-05-03 20:00 | NUR ---
RECEIVED PT TO MORNING SHIFT NURSE. PT IS LYING ON THE BED WITH 2L NC. PT IS AOX4, ABLE TO VERBALIZE NEEDS AND FOLLOW COMMANDS. PT HAS RIGHT AC GAUGE 20, SALINE LOCK. PT IS ANURIC. ALL SAFETY MEASURES IMPLEMENTED. CALL LIGHT WITHIN REACH. WILL CONTINUE TO MONITOR THE PATIENT.
--- NOTE | 2022-05-03 21:14 | NUR ---
ALL SCHEDULED MEDICATION WAS GIVEN PER MD ORDER. PT TOLERATE IT WELL. ALL SAFETY MEASURES IMPLEMENTED. WILL CONTINUE TO MONITOR.
[2022-05-03] MEDS: levETIRAcetam 100 MG/ML ORASYR PO SCH (21:40)
[2022-05-03] MEDS: SIMVASTATIN 10 MG TAB PO SCH (21:41)
[2022-05-03] MEDS: BLOOD GLUCOSE MONITORING 1 DEV DEV FS SCH (22:05)
--- NOTE | 2022-05-03 22:10 | NUR ---
NOTIFIED DR. HONG REGARDING PT. BLOOD GLUCOSE LEVEL OF 570. DR. ALCALA, ORDERED 15 UNITS OF LANTUS, SUBCUTANEOUS X1. WILL CONTINUE TO MONITOR THE PT.
[2022-05-03] MEDS ORDERED: INSULIN LANTUS 100 UNITS/ML 10 ML VIAL SUBQ ONE (22:15)
[2022-05-04] VITALS: BP 125/68
--- NOTE | 2022-05-04 | NUR ---
PT IS ON SLEEP. CHEST RISE AND FALL SYMMETRICALLY NOTED SATING AT 98% WITH NORMAL SINUS RHYTHM WITH INVERTED T-WAVE. NO S/S DISTRESS NOTED. ALL SAFETY MEASURES IMPLEMENTED. CALL LIGHT WITHIN REACH. BED WHEELS LOCK. WILL CONTINUE TO MONITOR.
[2022-05-04 04:00] VITALS: BP 139/71
--- NOTE | 2022-05-04 04:00 | NUR ---
PT IS ON SLEEP. CHEST RISE AND FALL SYMMETRICALLY NOTED SATING AT 96% WITH NORMAL SINUS RHYTHM WITH INVERTED T-WAVE. NO S/S DISTRESS NOTED. ALL SAFETY MEASURES IMPLEMENTED. CALL LIGHT WITHIN REACH. BED WHEELS LOCK. WILL CONTINUE TO MONITOR.
[2022-05-04] MEDS: BLOOD GLUCOSE MONITORING 1 DEV DEV FS SCH ×4 (06:55→20:12)
[2022-05-04] MEDS: INSULIN LISPRO SLIDING SCALE 100 UNITS/ML VIAL SUBQ PRN ×3 (06:56→20:20)
[2022-05-04 06:58] LABS: ANION GAP 10.3 (8-16); CARBON DIOXIDE 35.6 mmol/L (21-32); POTASSIUM 4.9 mmol/L (3.5-5.1)
[2022-05-04 07:12] LABS: CREATININE 8.1 mg/dL (0.6-1.3)
[2022-05-04 07:25] LABS: BASOPHILS % (AUTO) 0.8 % (0.0-2.0); EOSINOPHILS % (AUTO) 0.1 % (0.0-4.0); HEMATOCRIT 26.3 % (36-52); HEMOGLOBIN 8.9 g/dL (12.0-18.0); LYMPHOCYTES # (AUTO) 0.6 K/uL (2.0-11.5); MEAN CORPUSCULAR HEMOGLOBIN 31 pg (27-31); MEAN CORPUSCULAR HGB CONC 34 g/dL (33-37); MEAN CORPUSCULAR VOLUME 92.2 fL (80-94); MONOCYTES # (AUTO) 0.4 K/uL (0.8-1.0); MONOCYTES % (AUTO) 6.6 % (1.7-9.3); NEUTROPHILS % (AUTO) 82.5 % (42.2-75.2); PLATELET COUNT (AUTO) 172 K/uL (140-450); RED BLOOD CELL COUNT(AUTO) 2.86 MIL/uL (4.20-6.10); RED CELL DISTRIBUTION WIDTH 14.3 % (11.6-13.7)
[2022-05-04] MEDS: ALBUTEROL SULFATE/IPRATROPIU 3 ML SOL IH SCH ×2 (07:30→13:15)
--- NOTE | 2022-05-04 07:33 | NUR ---
RECEIVED REPORT FROM NIGHTSHIFT NURSE FOR CONTINUITY OF CARE. PLAN OF CARE DISCUSSED. PT IN STABLE CONDITION, A/OX4 AND CURRENTLY AWAKE. BREATHING IS EVEN, REGULAR AND EVEN ON 2L NC. PT IS ANURIC, WITH HX OF ESRD ON HD. SKIN IS INTACT, WITH REDNESS AND SWELLING IN LEFT ANKLE. PT IN STABLE CONDITION.
--- NOTE | 2022-05-04 07:33 | NUR ---
PT IS STABLE. ENDORSED PT TO MORNING SHIFT NURSE FOR CONTINUITY OF CARE.
[2022-05-04 08:00] VITALS: BP 160/68
[2022-05-04 08:07] LABS: T4 (THYROXINE) 8.4 ug/dL (4.5-12.0)
[2022-05-04] MEDS ORDERED: NIFEDIPINE 60 MG PO SCH (09:00)
[2022-05-04] MEDS ORDERED: PANTOPRAZOLE 40 MG TABEC PO SCH (09:00)
--- NOTE | 2022-05-04 09:00 | NUR ---
PT VISUALLY ASSESSED. IN STABLE CONDITION.
[2022-05-04] MEDS: ASPIRIN 81 MG TAB.CHEW PO SCH (09:11)
[2022-05-04] MEDS: NIFEdipine 60 MG TABER PO SCH (09:11)
[2022-05-04] MEDS: lisinopriL 20 MG TAB PO SCH (09:11)
[2022-05-04] MEDS: levETIRAcetam 100 MG/ML ORASYR PO SCH ×2 (09:12→20:28)
[2022-05-04] MEDS: GABAPENTIN 300 MG CAP PO SCH (09:12)
--- NOTE | 2022-05-04 09:26 | NUR ---
PATIENT HAS BEEN SCREENED AND CATEGORIZED MODERATE NUTRITION RISK. PATIENT WILL BE SEEN WITHIN 3-5 DAYS OF ADMISSION. 05/03/22-05/07/[address]
--- NOTE | 2022-05-04 11:00 | NUR ---
PT VISUALLY ASSESSED. IN STABLE CONDITION.
[2022-05-04 12:00] VITALS: BP 157/67
[2022-05-04] MEDS ORDERED: IBUPROFEN 400 MG TAB PO PRN (12:10)
--- NOTE | 2022-05-04 13:00 | NUR ---
PT VISUALLY ASSESSED. IN STABLE CONDITION.
--- NOTE | 2022-05-04 15:00 | NUR ---
PT VISUALLY ASSESSED. IN STABLE CONDITION.
[2022-05-04 16:00] VITALS: BP 114/59
--- NOTE | 2022-05-04 17:00 | NUR ---
PT VISUALLY ASSESSED. IN STABLE CONDITION.
[2022-05-04] MEDS ORDERED: ALBUTEROL HFA MDI 90 MCG/ACTUATION 8 GM INH PRN (18:25)
--- NOTE | 2022-05-04 19:30 | NUR ---
ENDORSED PT TO NIGHTSHIFT NURSE FOR CONTINUITY OF CARE. PT IN STABLE CONDITION.
--- NOTE | 2022-05-04 19:35 | NUR ---
RECEIVED REPORT FROM AM NURSE BRADLY RN FOR CONTINUITY OF CARE. PT IS STABLE IN BED. ISOLATION COVID-19+. A&OX3. DENIES PAIN AT THIS TIME. ON O2 2L/NC. NAD. RR EVEN AND UNLABORED WITH EQUAL CHEST RISE. PT DID NOT EAT DINNER. HIS DENTURES ARE AT HOME. SISTER CARLY TO BRING THEM IN WITH HIS CELLPHONE ON 05/05/22. BROUGHT PT ENSURE JUICE DRINK WITH VITAMINS AND MINERALS. PUDDING, CHICKEN SALED FOR PROTEIN AND TEA. GI IS INTACT. PT IS IN ESRD GETS DIALYSIS , TH, SAT. JEY AV SHUNT WITH GOOD BRUIT AND THRILL. LAST HEMODIALYSIS WAS 05/02/22. SKIN IS INTACT. R PINKY TOE BLISTER DRESSED WITH GAUZE AND SILK TAPE. L ANKLE SWOLLEN AND BRUISED STATUS POST FALL PRIOR TO ADMISSION. RESULTING IN L ANKLE FX. SPLINT ON L ANKLE IN PLACE. ALL SAFETY MEASURES IN PLACE. BED IN LOW AND LOCKED POSITION. CALL LIGHT WITHIN REACH. WILL CONTINUE TO MONITOR.
[2022-05-04 20:00] VITALS: BP 160/68
[2022-05-04] MEDS: SIMVASTATIN 10 MG TAB PO SCH (20:24)
--- NOTE | 2022-05-04 21:00 | NUR ---
HS MEDS GIVEN. VG=222 2 UNITS HUMALOG COVERAGE GIVEN PER [id number] SCALE.
[2022-05-05] VITALS: BP 106/52
[2022-05-05 04:00] VITALS: BP 118/64
[2022-05-05] MEDS: ACETAMINOPHEN 325 MG TAB PO PRN (05:02)
--- NOTE | 2022-05-05 06:30 | NUR ---
BS= [address] KOROMA WITH RESULTS. NEW ORDERS RECEIVED AND CARRIED OUT. 10 UNITS HUMALOG INSULIN AND 15 UNITS LANTUS INSULIN GIVEN PER ORDER. VSS: BP-118/64, P-81, RR-18, T-99.3, F5DPB=72% O2 2L/NC. WILL CONTINUE TO MONITOR.
[2022-05-05] MEDS ORDERED: INSULIN LANTUS 100 UNITS/ML 10 ML VIAL SUBQ SCH (06:35)
[2022-05-05] MEDS: BLOOD GLUCOSE MONITORING 1 DEV DEV FS SCH ×4 (06:56→21:30)
[2022-05-05 07:03] LABS: ANION GAP 18.4 (8-16); CARBON DIOXIDE 27.1 mmol/L (21-32); POTASSIUM 4.5 mmol/L (3.5-5.1)
[2022-05-05 07:14] LABS: BASOPHILS # (AUTO) 0.1 K/uL (0.00-0.22); BASOPHILS % (AUTO) 1.5 % (0.0-2.0); EOSINOPHILS # (AUTO) 0.1 K/uL (0-0.4); EOSINOPHILS % (AUTO) 1.4 % (0.0-4.0); HEMOGLOBIN 8.3 g/dL (12.0-18.0); LYMPHOCYTES # (AUTO) 0.6 K/uL (2.0-11.5); LYMPHOCYTES % (AUTO) 14.2 % (20.5-51.1); MEAN CORPUSCULAR HEMOGLOBIN 32 pg (27-31); MEAN CORPUSCULAR HGB CONC 35 g/dL (33-37); MEAN CORPUSCULAR VOLUME 92.3 fL (80-94); MONOCYTES # (AUTO) 0.2 K/uL (0.8-1.0); NEUTROPHILS # (AUTO) 3.2 K/uL (1.8-7.7); NEUTROPHILS % (AUTO) 77.9 % (42.2-75.2); PLATELET COUNT (AUTO) 167 K/uL (140-450); WHITE BLOOD COUNT (AUTO) 4.1 K/uL (4.8-10.8)
[2022-05-05 07:29] LABS: CREATININE 9.5 mg/dL (0.6-1.3)
--- NOTE | 2022-05-05 07:30 | NUR ---
ENDORSED REPORT TO AM RN FOR CONTINUITY OF CARE. PT IS STABLE. ALL NEEDS MET THROUGHOUT THE SHIFT.
[2022-05-05 08:00] VITALS: BP 115/56
[2022-05-05] MEDS: lisinopriL 20 MG TAB PO SCH (08:31)
[2022-05-05] MEDS: GABAPENTIN 300 MG CAP PO SCH (08:31)
[2022-05-05] MEDS: levETIRAcetam 100 MG/ML ORASYR PO SCH ×2 (08:31→21:15)
[2022-05-05] MEDS: PANTOPRAZOLE 40 MG TABEC PO SCH (08:32)
[2022-05-05] MEDS: ASPIRIN 81 MG TAB.CHEW PO SCH (08:32)
[2022-05-05] MEDS: NIFEdipine 60 MG TABER PO SCH (08:35)
[2022-05-05] MEDS ORDERED: EPOETIN ALFA-EPBX 4,000 UNITS/ML VIAL IV SCH (09:47)
[2022-05-05 12:00] VITALS: BP 119/60
--- NOTE | 2022-05-05 12:03 | NUR ---
PHYSICAL THERAPY NOTE: ATTEMPTED TO SEE PATIENT FOR PHYSICAL THERAPY EVALUATION HOWEVER PATIENT CURRENTLY UNDERGOING DIALYSIS TREATMENT: REMAINING TIME 2.5 HOURS. WILL FOLLOW UP TOMORROW IF APPROPRIATE. RN AWARE
[2022-05-05] MEDS: INSULIN LISPRO SLIDING SCALE 100 UNITS/ML VIAL SUBQ PRN ×3 (14:04→21:33)
--- NOTE | 2022-05-05 14:25 | NUR ---
PT TITRATED TO RA FROM 2L NC TOLERATING WELL.
[2022-05-05 16:00] VITALS: BP 110/59
--- NOTE | 2022-05-05 19:15 | NUR ---
RECEIVED REPORT FROM AM JEREMY PRETTY FOR CONTINUITY OF CARE, PT IS STABLE. A&OX2, HAD HEMODIALYSIS TODAY 3.6 L WAS TAKEN OFF. DENIES PAIN AT THIS TIME. IS SR ON TELEMETRY.NO BM YET. PT IS ANURIC. GI IS INTACT. PT'S SKIN IS NOT INTACT. HAS L ANKLE FX. SPLINT IS ON L FOOT. R PINKY TOE BLISTER IS DRESSED WITH GAUZE AND SILK TAPE. RAC 20G IV IS FLUSHED AND PATENT. NAD. ALL SAFETY MEASURES IN PLACE. CALL LIGHT IS WITHIN REACH. WILL CONTINUE TO MONITOR.
[2022-05-05] MEDS: SIMVASTATIN 10 MG TAB PO SCH (21:15)
--- NOTE | 2022-05-05 21:30 | NUR ---
HS MEDS GIVEN. SK=254 2UNITS HUMALOG INSULIN GIVEN PER SLIDING SCALE. PT AWAKE WATCHING TV. NAD. ALL SAFETY MEASURES IN PLACE. WILL CONTINUE TO MONITOR.
[2022-05-06] VITALS: BP 125/67
--- NOTE | 2022-05-06 01:30 | NUR ---
PT C/O BEING HOT. PT'S ROOM IS HOT. TURNED THERMOSTAT DOWN TO LOWEST SETTING. T-100.7 RECEIVED TYLENOL 650MG PO AT 01:41 AND COOLING MEASURES APPLIED. TURNED LIGHTS OFF . ALL SAFETY MEASURES IN PLACE . CALL LIGHT WITHIN REACH. WILL CONTINUE TO MONITOR.
[2022-05-06] MEDS: ACETAMINOPHEN 325 MG TAB PO PRN (01:41)
[2022-05-06 04:00] VITALS: BP 110/59
--- NOTE | 2022-05-06 06:30 | NUR ---
JX=068 COVERED WITH 8 UNITS HUMALOG INSULIN PER SLIDING SCALE.
[2022-05-06] MEDS: BLOOD GLUCOSE MONITORING 1 DEV DEV FS SCH ×2 (06:41→11:30)
[2022-05-06] MEDS: INSULIN LISPRO SLIDING SCALE 100 UNITS/ML VIAL SUBQ PRN (06:45)
[2022-05-06 07:09] LABS: BASOPHILS % (AUTO) 1.9 % (0.0-2.0); EOSINOPHILS # (AUTO) 0.1 K/uL (0-0.4); EOSINOPHILS % (AUTO) 4.2 % (0.0-4.0); HEMATOCRIT 27.6 % (36-52); HEMOGLOBIN 9.2 g/dL (12.0-18.0); LYMPHOCYTES # (AUTO) 0.5 K/uL (2.0-11.5); LYMPHOCYTES % (AUTO) 20.8 % (20.5-51.1); MEAN CORPUSCULAR HEMOGLOBIN 31 pg (27-31); MEAN CORPUSCULAR HGB CONC 33 g/dL (33-37); MEAN CORPUSCULAR VOLUME 93.2 fL (80-94); MONOCYTES # (AUTO) 0.2 K/uL (0.8-1.0); MONOCYTES % (AUTO) 8.6 % (1.7-9.3); NEUTROPHILS # (AUTO) 1.7 K/uL (1.8-7.7); NEUTROPHILS % (AUTO) 64.5 % (42.2-75.2); PLATELET COUNT (AUTO) 201 K/uL (140-450); RED BLOOD CELL COUNT(AUTO) 2.97 MIL/uL (4.20-6.10); RED CELL DISTRIBUTION WIDTH 14.3 % (11.6-13.7); WHITE BLOOD COUNT (AUTO) 2.6 K/uL (4.8-10.8)
[2022-05-06 07:10] LABS: ANION GAP 22.1 (8-16); CARBON DIOXIDE 21.3 mmol/L (21-32); POTASSIUM 4.4 mmol/L (3.5-5.1)
--- NOTE | 2022-05-06 07:30 | NUR ---
ENDORSED REPORT TO AM JEREMY PRETTY FOR CONTINUITY OF CARE. PT IS SAMANTHA. ALL NEEDS MET THROUGHOUT THE SHIFT.
[2022-05-06 07:33] LABS: CREATININE 6.7 mg/dL (0.6-1.3)
[2022-05-06 08:00] VITALS: BP 135/65
[2022-05-06] MEDS: PANTOPRAZOLE 40 MG TABEC PO SCH (09:00)
[2022-05-06] MEDS ORDERED: VIT-B COMP/VIT-C/FOLIC ACID 1 TAB PO SCH (09:00)
[2022-05-06] MEDS: NIFEdipine 60 MG TABER PO SCH (09:21)
[2022-05-06] MEDS: lisinopriL 20 MG TAB PO SCH (09:21)
[2022-05-06] MEDS: GABAPENTIN 300 MG CAP PO SCH (09:22)
[2022-05-06] MEDS: ASPIRIN 81 MG TAB.CHEW PO SCH (09:22)
[2022-05-06] MEDS: levETIRAcetam 100 MG/ML ORASYR PO SCH (09:23)
[2022-05-06] MEDS ORDERED: INSULIN LANTUS 100 UNITS/ML 10 ML VIAL SUBQ SCH (12:40)
--- NOTE | 2022-05-06 13:17 | NUR ---
DC PLANNING: CALLED [facility] [phone] SPOKE WITH JOHN ,NOTIFIED HER THAT PT IS COVID POSITIVE PER JOHN PT CAN HAVE HIS DIALYSIS AT [facility], SCHEDULED AT 6:30 AM ON WEDNESDAY NOTIFIED PATIENT. CM TO FOLLOW
[2022-05-06 15:03] VITALS: BP 119/60
--- NOTE | 2022-05-06 15:46 | NUR ---
POTENTIAL COVID RELATED SKIN FAILURE DUE TO TISSUE LESS TOLERATE TO PRESSURE, SHEARING AND POSSIBLE ASSOCIATED WITH MICROVASCULAR INJURY AND HYPOXIA -POSITIONING: TURN AND REPOSITION PATIENT Q 2H OR SOONER USE PILLOWS TO KEEP BONY PROMINENCES FROM DIRECT CONTACT WITH SURFACES USE REPOSITIONING WEDGES TO PROVIDE 30-DEGREE ANGLE FOR SIDE LYING POSITIONS OFFLOADING OR FOAM DRESSING TO ALL TUBING TO PREVENT MEDICAL DEVICES RELATED PRESSURE INJURY -RE-EVALUATING AND MANAGING INCONTINENCE MONITOR SKIN CONDITION DURING POSITION CHANGE DO NOT MASSAGE REDNESS, BONY PROMINENCES, DO NOT USE DONUT-TYPE DEVICES FREQUENT CHARLEY-CARE AND PROVIDE BARRIER CREAMS PRN IF SOILING MOISTURE CONTROL BY OFFER BED PATEL/URINAL /ABSORBENT PAD TO WICK AND HOLD MOISTURE. KEEP SKIN DRY AND PROTECT FROM FRICTION -MANAGE FRICTION/SHEAR/MOBILITY KEEP HOB AT THE LOWEST LEVEL OF ELEVATION NO MORE THAN 30 DEGREE UNLESS OTHERWISE CONTRAINDICATED USE LIFT SHEET OR TRANSFER DEVICE TO MOVE PATIENT AND PREVENT LATERAL SHEER. PROTECT HEELS, ELBOWS BONY PROMENANCES WITH SKIN BERRIES OR FOAM DRESSING IF EXPOSED TO FRICTION OFFLOAD BILATERAL HEELS BY PLACING PILLOWS UNDER CALVES AT ALL TIMES, UNLESS OTHERWISE CONTRAINDICATED -PRESSURE REDISTRIBUTION SURFACE THERAPY EBONY ISOFLEX MATTRESS -NUTRITION: PLEASE FOLLOW RD RECOMMENDATIONS AND OFFER NUTRITION SUPPLEMENTS IF ORDERED. PLEASE CONTACT WOUND CARE NURSE FOR ANY QUESTION AND CHANGE OF WOUND CONDITION.
--- NOTE | 2022-05-06 16:57 | NUR ---
PT LEFT ,DISCHARGE PACKAGE GIVEN, IV AND ID BAND REMOVED. [id number]
== END 2022-05-06 16:55 | disposition home or self-care (01) | DRG 871 ==
LOC: MED 07:17 → MTU 10:59
PROVIDERS: ADMIT Family Medicine; ATTEND Family Medicine
PROC: 5A1D70Z Performance of Urinary Filtration, Intermittent, Less than 6 Hours Per Day (ICD-10-PCS; principal; 2022-05-06)
DX: A41.9 Sepsis, unspecified organism (principal); J12.82 Pneumonia due to coronavirus disease 2019; J96.01 Acute respiratory failure with hypoxia; U07.1 COVID-19; N18.6 End stage renal disease; R65.21 Severe sepsis with septic shock; G40.909 Epilepsy, unspecified, not intractable, without status epilepticus; S82.892A Other fracture of left lower leg, initial encounter for closed fracture; X58.XXXA Exposure to other specified factors, initial encounter; Y93.89 Activity, other specified; Y92.89 Other specified places as the place of occurrence of the external cause; Z79.82 Long term (current) use of aspirin; Z79.899 Other long term (current) drug therapy; Z86.73 Personal history of transient ischemic attack (TIA), and cerebral infarction without residual deficits; Z99.2 Dependence on renal dialysis; Y99.8 Other external cause status; E11.65 Type 2 diabetes mellitus with hyperglycemia
CPT/HCPCS: 36415; 36600; 71045; 80048; 80053; 82150; 82803; 82948; 83036; 83605; 83690; 83735; 83880; 84100; 84436; 84439; 84443; 84479; 85025; 85610; 85730; 87040; 87081; 93005; 96365; 96367; 96375; 97116; 97163-GP; 99291; J0696; J1644; J1815; J1956; J2405; J7060; Q0092; Q5106

== ENCOUNTER 2022-05-06 23:18 | Emergency (ER) | payer OTHER ==
[~2022-05-06] VITALS: Ht 182.9 cm; Wt 77.1 kg
[2022-05-06 23:18] VITALS: BP 145/74
--- NOTE | 2022-05-06 23:18 | NUR ---
BIBA WITH HIGH BLOOD SUGAR FROM, ALERT AWAKE , ORIENTED, HE WAS JUST DISCHARGE FROM HOSPITAL, 3-4 HOURS AGO.
[2022-05-07 00:01] LABS: EOSINOPHILS # (AUTO) 0.1 K/uL (0-0.4); EOSINOPHILS % (AUTO) 3.2 % (0.0-4.0); HEMATOCRIT 27.7 % (36-52); HEMOGLOBIN 9.5 g/dL (12.0-18.0); LYMPHOCYTES # (AUTO) 0.4 K/uL (2.0-11.5); LYMPHOCYTES % (AUTO) 17.1 % (20.5-51.1); MEAN CORPUSCULAR HEMOGLOBIN 31 pg (27-31); MEAN CORPUSCULAR HGB CONC 34 g/dL (33-37); MEAN CORPUSCULAR VOLUME 91.6 fL (80-94); MONOCYTES # (AUTO) 0.2 K/uL (0.8-1.0); MONOCYTES % (AUTO) 7.6 % (1.7-9.3); NEUTROPHILS # (AUTO) 1.7 K/uL (1.8-7.7); NEUTROPHILS % (AUTO) 70.1 % (42.2-75.2); PLATELET COUNT (AUTO) 197 K/uL (140-450); RED BLOOD CELL COUNT(AUTO) 3.03 MIL/uL (4.20-6.10); RED CELL DISTRIBUTION WIDTH 13.7 % (11.6-13.7); WHITE BLOOD COUNT (AUTO) 2.5 K/uL (4.8-10.8)
--- NOTE | 2022-05-07 00:15 | NUR ---
57 Y.O. M BIBA FROM HOME WITH C/O HIGH BLOOD SUGAR, 457 MG/DL,ALERT AWAKE , ORIENTED . HE WAS JUST D/C FROM OUR [facility]OS[facility] 3-4 HOURS AGO. NO SOB, CHEST PAIN, OR N/V/D. A&0X4, VITALS WNL, SKIN INTACT, AND WALKS WITH CRUTCHES DUE TO L ANKLE BREAK. HX:DM, ASTHMA, HTN, ERSD
[2022-05-07 00:24] LABS: ALBUMIN 3.1 g/dL (3.4-5.0); ANION GAP 15.6 (8-16); CARBON DIOXIDE 26.4 mmol/L (21-32); TOTAL BILIRUBIN 0.6 mg/dL (0.0-1.0)
[2022-05-07 00:27] LABS: CREATININE 8.1 mg/dL (0.6-1.3)
--- NOTE | 2022-05-07 00:42 | NUR ---
SAMANTHA COLLECTED AND WALKED TO LAB
[2022-05-07] MEDS: NACL 0.9% 1,000 ML IV ONE (01:00)
[2022-05-07] MEDS: INSULIN REGULAR, HUMAN 100 UNIT/ML VIAL IV ONE (01:25)
[2022-05-07 01:54] LABS: MAGNESIUM 2.1 mg/dL (1.8-2.4); PHOSPHORUS 3.1 mg/dL (2.5-4.9)
--- NOTE | 2022-05-07 02:45 | NUR ---
PT SISTER GOING TO WADER BOOT TOP ASSEMBLER PT AT 0600 DUE TO PT NOT BEING ABLE TO WALK ON L ANKLE FRACTURE.
[2022-05-07 06:10] VITALS: BP 141/73
--- NOTE | 2022-05-07 06:10 | NUR ---
Patient discharged with v/s stable. Written and verbal after care instructions given and explained. Patient verbalized understanding. Wheel Chair Assisted with to car. All questions addressed prior to discharge. Advised to follow up with PMD.
== END 2022-05-07 06:10 | disposition home or self-care (01) ==
LOC: MED 23:18
DX: E11.65 Type 2 diabetes mellitus with hyperglycemia (principal); E11.22 Type 2 diabetes mellitus with diabetic chronic kidney disease; I12.0 Hypertensive chronic kidney disease with stage 5 chronic kidney disease or end stage renal disease; N18.6 End stage renal disease; Z99.2 Dependence on renal dialysis; Z20.822 Contact with and (suspected) exposure to COVID-19; Z86.73 Personal history of transient ischemic attack (TIA), and cerebral infarction without residual deficits; Z79.1 Long term (current) use of non-steroidal anti-inflammatories (NSAID); Z79.2 Long term (current) use of antibiotics; Z79.899 Other long term (current) drug therapy; Z79.82 Long term (current) use of aspirin
CPT/HCPCS: 36415; 71045; 80053; 82803; 83735; 84100; 85025; 87426; 93005; 96361; 96374; 99285; J1815; J7030; Q0092

== ENCOUNTER 2022-05-28 21:23 | Inpatient (IN) | payer OTHER ==
[~2022-05-28] VITALS: Ht 182.9 cm; Wt 78.0 kg
[~2022-05-28 21:23] MED LIST changes: +INSU100S22 SUBQ; +INSU100S5; -LEVO-315 PO; +LEVO-481 PO; +SIMV-371 PO; -SIMV10TA1 PO
--- NOTE | 2022-05-28 21:24 | NUR ---
PT MARY BISHOPS. TAKEN TO BED 4
--- NOTE | 2022-05-28 21:24 | NUR ---
Dr. Limon examining patient.
[2022-05-28 21:30] VITALS: BP 137/60
--- NOTE | 2022-05-28 21:30 | NUR ---
57 y/o male biba from home, c/o aloc. pt is a/ox2 confused. unlabored breathing and speaking in full sentences. pt is non ambulatory due to bilateral diabetic ulcers on his feet. fistula on right upper arm for dialysis m//. pt is pink/hot/dry. hx: cva, dm, dialysis nka Addendum: 05/28/22 at 2318 by BlackStratus PER PHONE CALL WITH MOTHER, PT WAS RELEASED FROM [facility] YESTERDAY. MOTHER CALLED 911 DUE TO PT COMPLAINING OF SEVERE HEADACHE, LEG PAIN, CONFUSION, AND PT HX.
[2022-05-28] MEDS ORDERED: NACL 0.9% 2,500 ML IV ONE (21:35)
[2022-05-28] MEDS ORDERED: VANCOMYCIN 1GM/DEXT 5% PREMIX 200 ML IV ONE (21:35)
[2022-05-28] MEDS ORDERED: PIPERACILLIN/TAZOBACTAM 3.375 GM in DEXTROSE 5% 50 ML IV ONE (21:35)
[2022-05-28] MEDS ORDERED: VANCOMYCIN PER PHARMACY MC PRN (21:35)
--- NOTE | 2022-05-28 21:39 | NUR ---
RT AT BEDSIDE
--- NOTE | 2022-05-28 21:56 | NUR ---
X-Ray at bedside.
--- NOTE | 2022-05-28 21:59 | NUR ---
isabella swab collected and walked to lab
[2022-05-28 22:02] LABS: BASOPHILS # (AUTO) 0.1 K/uL (0.00-0.22); BASOPHILS % (AUTO) 1.4 % (0.0-2.0); EOSINOPHILS % (AUTO) 0.8 % (0.0-4.0); HEMATOCRIT 22.3 % (36-52); HEMOGLOBIN 7.4 g/dL (12.0-18.0); LYMPHOCYTES # (AUTO) 0.5 K/uL (2.0-11.5); LYMPHOCYTES % (AUTO) 9.2 % (20.5-51.1); MEAN CORPUSCULAR HEMOGLOBIN 31 pg (27-31); MEAN CORPUSCULAR HGB CONC 33 g/dL (33-37); MEAN CORPUSCULAR VOLUME 93.6 fL (80-94); MONOCYTES # (AUTO) 0.4 K/uL (0.8-1.0); MONOCYTES % (AUTO) 6.6 % (1.7-9.3); NEUTROPHILS # (AUTO) 4.5 K/uL (1.8-7.7); PLATELET COUNT (AUTO) 226 K/uL (140-450); RED BLOOD CELL COUNT(AUTO) 2.38 MIL/uL (4.20-6.10); RED CELL DISTRIBUTION WIDTH 15.7 % (11.6-13.7); WHITE BLOOD COUNT (AUTO) 5.5 K/uL (4.8-10.8)
[2022-05-28] MEDS ORDERED: PIPERACILLIN/TAZOBACTAM 3.375 GM VIAL IV ONE (22:06)
--- NOTE | 2022-05-28 22:12 | NUR ---
Dr. Last examining patient.
[2022-05-28] MEDS ORDERED: VANCOMYCIN 1,000 MG VIAL ONE (22:37)
--- NOTE | 2022-05-28 23:04 | NUR ---
due to pt hx of renal failure, pt produces very little (if any) urine.
[2022-05-28 23:19] LABS: ALBUMIN 2.2 g/dL (3.4-5.0); ANION GAP 15.8 (8-16); CARBON DIOXIDE 26.3 mmol/L (21-32); POTASSIUM 5.1 mmol/L (3.5-5.1); TOTAL BILIRUBIN 0.6 mg/dL (0.0-1.0)
[2022-05-29] MEDS ORDERED: SODIUM PHOS / POTASSIUM PHOS 1 PKT PDR PO PRN (00:20)
[2022-05-29] MEDS ORDERED: POTASSIUM CHLORIDE 10 MEQ TABER PO PRN (00:20)
[2022-05-29] MEDS ORDERED: DEXTROSE 50% 50 ML SYR IVP PRN (00:20)
[2022-05-29] MEDS ORDERED: INSULIN REGULAR, HUMAN 100 UNIT/ML VIAL IVP SCH (00:20)
[2022-05-29] MEDS ORDERED: MAGNESIUM OXIDE 400 MG TAB PO PRN (00:20)
[2022-05-29] MEDS ORDERED: ACETAMINOPHEN 325 MG TAB PO PRN (00:20)
[2022-05-29] MEDS ORDERED: ONDANSETRON 4 MG/2 ML VIAL IM/IVP PRN (00:20)
[2022-05-29] MEDS ORDERED: DOCUSATE SODIUM 100 MG GELCAP PO PRN (00:20)
--- NOTE | 2022-05-29 00:46 | NUR ---
PT TAKEN TO CT
[2022-05-29 00:54] LABS: MAGNESIUM 1.8 mg/dL (1.8-2.4); PHOSPHORUS 3.6 mg/dL (2.5-4.9)
--- NOTE | 2022-05-29 00:59 | NUR ---
PT RETURN FROM CT
[2022-05-29] MEDS: INSULIN LISPRO SLIDING SCALE 100 UNITS/ML VIAL SUBQ PRN ×5 (04:23→21:32)
--- NOTE | 2022-05-29 05:17 | NUR ---
Patient will be admitted to care of DR RYAN. Admited to TELE. Will go to room 116. Belongings list completed. Report to JEREMY BOOTH.
--- NOTE | 2022-05-29 05:55 | NUR ---
RECEIVED REPORT FROM ER NURSE TY FOR CONTINUITY OF CARE PRIOR TO TRANSPORT TO 116-A [facility]. INITIAL VITALS TAKEN: T-99.1, P-76,RR-18, BP-137/71, O2 SAT=98% ON RM AIR. MRSA SWAB OBTAINED. SA=855 10 UNITS OF HUMALOG PER SLIDING SCALE GIVEN. SENT TEXT TO EUGENIO CALDERON FOR FURTHER INSULIN ORDERS AND HEMO DIALYSIS ORDER SCHEDULE. OF O7OO NO RESPONSE.
[2022-05-29] MEDS: BLOOD GLUCOSE MONITORING 1 DEV DEV FS SCH ×4 (06:53→21:32)
[2022-05-29 07:35] LABS: BASOPHILS # (AUTO) 0.1 K/uL (0.00-0.22); BASOPHILS % (AUTO) 1.4 % (0.0-2.0); EOSINOPHILS # (AUTO) 0.1 K/uL (0-0.4); EOSINOPHILS % (AUTO) 1.9 % (0.0-4.0); LYMPHOCYTES # (AUTO) 0.7 K/uL (2.0-11.5); LYMPHOCYTES % (AUTO) 12.4 % (20.5-51.1); MEAN CORPUSCULAR HEMOGLOBIN 32 pg (27-31); MEAN CORPUSCULAR HGB CONC 33 g/dL (33-37); MEAN CORPUSCULAR VOLUME 94.4 fL (80-94); MONOCYTES # (AUTO) 0.5 K/uL (0.8-1.0); MONOCYTES % (AUTO) 9.1 % (1.7-9.3); NEUTROPHILS # (AUTO) 4.2 K/uL (1.8-7.7); NEUTROPHILS % (AUTO) 75.2 % (42.2-75.2); PLATELET COUNT (AUTO) 206 K/uL (140-450); RED BLOOD CELL COUNT(AUTO) 2.11 MIL/uL (4.20-6.10); RED CELL DISTRIBUTION WIDTH 15.2 % (11.6-13.7); WHITE BLOOD COUNT (AUTO) 5.6 K/uL (4.8-10.8)
[2022-05-29 07:49] LABS: HEMATOCRIT 19.9 % (36-52); HEMOGLOBIN 6.6 g/dL (12.0-18.0)
--- NOTE | 2022-05-29 07:50 | NUR ---
ENDORSED REPORT FOR NEW ADMIT TO AM RN FOR CONTINUITY OF CARE AND TO FINISH ADMISSION. PT IS STABLE. ALL NEEDS MET SINCE TRANSFER TO 116-A. WILL ENDORSE TO AM RN TO FOLLOW UP AND COMPLETE ADMISSION.
[2022-05-29 08:35] LABS: ANION GAP 13.3 (8-16); CARBON DIOXIDE 27.5 mmol/L (21-32); POTASSIUM 4.8 mmol/L (3.5-5.1)
--- NOTE | 2022-05-29 08:54 | NUR ---
PATIENT HAS BEEN SCREENED AND CATEGORIZED HIGH NUTRITION RISK. PATIENT WILL BE SEEN WITHIN 1-2 DAYS OF ADMISSION. RECEIVED REFERRAL FOR WOUNDS AND PRESSURE INJURY RONI CONCEPCION RD
[2022-05-29] MEDS ORDERED: levETIRAcetam 1,000 MG in NACL 0.9% 100 ML IV SCH (09:00)
[2022-05-29] MEDS ORDERED: INSULIN LANTUS 100 UNITS/ML 10 ML VIAL SUBQ SCH ×2 (09:00)
[2022-05-29] MEDS: levETIRAcetam 500 MG TAB PO SCH ×2 (09:05→21:46)
[2022-05-29] MEDS: NIFEdipine 60 MG TABER PO SCH (09:06)
[2022-05-29 09:15] LABS: CREATININE 5.4 mg/dL (0.6-1.3)
[2022-05-29] MEDS ORDERED: INSULIN LISPRO 100 UNITS/ML VIAL SUBQ SCH (09:30)
[2022-05-29] MEDS: PANTOPRAZOLE 40 MG INJ VIAL IVP SCH (09:55)
[2022-05-29 10:16] VITALS: BP 143/75
--- NOTE | 2022-05-29 10:27 | NUR ---
WOUND CARE EVALUATION NOTE: SKIN ASSESSMENT DONE TO THIS 57 Y/O PT. AAX3. PER PT. HE DOESNT REMEMBER WHY HE IS AT HOSPITAL. PT. ADMITTED WITH INITIAL DX OF ALOC PAST MEDICAL HX OF CEREBROVASCULAR ACCIDE RESIDUAL LEFT LEG WEAKNESS, DIABETES, RENAL DISEASE ON ESRD- T//WED. PT ADMITTED WITH RIGHT 3RD FINGERTIP PURPLE COLOR. PER PT. IT HAS BEEN THERE FOR WEEKS, NO PAIN AND DOES NOT BUTHER HIM. PT. ADMITTED WITH MULTIPLE LOWER EXTREMITIES ULCERS. POC DISCUSSED WITH PT. PT. VERBALIZES UNDERSTANDING. POC DISCUSSED WITH PRIMARY RN DRU. POC DISCUSSED WITH DR. RYAN BASE ON PAST IMAGE HX RECOMMEND PODIATRY CONSULT. PER HE WILL TAKE A LOOK OF IT. INTEGUMENTARY: -DTI RIGHT 3RD FINGERTIP 0.8X0.5CM CLOSED WOUND IN PURPLE COLOR, CHARLEY WOUND SKIN PEELING, PAIN 0/10 -VASCULAR ULCERS TO LEFT DORSAL FOOT2 SITES: LARGEST 1X1X0.1CM YELLOW SLOUGH TISSUE ,MOIST NO ODOR WITH CHARLEY WOUND SKIN BROWN/BLACK ESCHAR TISSUE ENTIRE AREA 5X4CM. SITE #2 1.5X1CM STABLE DRY BLACK ESCHAR TISSUE. -VASCULAR ULCERS TO RIGHT FOOT 5TH DIGIT TOE 1X1CM STABLE DRY BLACK ESCHAR TISSUE. -VASCULAR ULCERS TO RIGHT HALLUX PLANTAR AREA DTI 0.8X0.8CM AND INTERSPACE ASPECT 2X1CM DTI -VASCULAR ULCERS TO RIGHT PLANTAR FOOT MULTIPLE UN-STAGEABLE ULCERS, SITE #1 6X5CM DRY BLACK ESCHAR TISSUE, CHARLEY WOUND SKIN PEELING, SITE #2 3X3CM DRY BROWN ESCHAR TISSUE,CHARLEY WOUND SKIN PEELING, SITE #3 3X2CM LIGHT BROWN THIN SCAB TISSUE,CHARLEY WOUND SKIN PEELING -LEFT UPPER ARM AV SHUNT DRESSING DCI RECOMMENDATIONS -PODIATRY CONSULT -CLEANSE BILATERAL FEET MULTIPLE ULCERS WITH NS, PAT DRY APPLY MOIST BETADINE 4X4 GAUZES AND WRAP WITH KERLIX ROLL SECURED WITH TAPE DAILY AND PRN IF SOILING -PROVIDE HEEL RAISERS BILATERAL HEELS WITH OFFLOADING -POSITIONING: TURN AND REPOSITION PATIENT Q 2H OR SOONER USE PILLOWS TO KEEP BONY PROMINENCES FROM DIRECT CONTACT WITH SURFACES USE REPOSITIONING WEDGES TO PROVIDE 30-DEGREE ANGLE FOR SIDE LYING POSITIONS OFFLOADING OR FOAM DRESSING TO ALL TUBING TO PREVENT MEDICAL DEVICES RELATED PRESSURE INJURY -RE-EVALUATING AND MANAGING INCONTINENCE MONITOR SKIN CONDITION DURING POSITION CHANGE DO NOT MASSAGE REDNESS, BONY PROMINENCES, DO NOT USE DONUT-TYPE DEVICES FREQUENT CHARLEY-CARE AND PROVIDE BARRIER CREAMS PRN IF SOILING MOISTURE CONTROL BY OFFER BED PATEL/URINAL /ABSORBENT PAD TO WICK AND HOLD MOISTURE. KEEP SKIN DRY AND PROTECT FROM FRICTION -MANAGE FRICTION/SHEAR/MOBILITY KEEP HOB AT THE LOWEST LEVEL OF ELEVATION NO MORE THAN 30 DEGREE UNLESS OTHERWISE CONTRAINDICATED USE LIFT SHEET OR TRANSFER DEVICE TO MOVE PATIENT AND PREVENT LATERAL SHEER. PROTECT HEELS, ELBOWS BONY PROMENANCES WITH SKIN BERRIES OR FOAM DRESSING IF EXPOSED TO FRICTION OFFLOAD BILATERAL HEELS BY PLACING PILLOWS UNDER CALVES AT ALL TIMES, UNLESS OTHERWISE CONTRAINDICATED -PRESSURE REDISTRIBUTION SURFACE THERAPY EBONY ISOFLEX MATTRESS -NUTRITION: PLEASE FOLLOW RD RECOMMENDATIONS AND OFFER NUTRITION SUPPLEMENTS IF ORDERED.
[2022-05-29] MEDS: GAUZE TP SCH (11:57)
--- NOTE | 2022-05-29 14:41 | NUR ---
05/29/22 RD INITIAL ASSESSMENT COMPLETED PLEASE REFER TO NUTRITION ASSESSMENT UNDER CARE ACTIVITY FOR ESTIMATED NUTRITIONAL NEEDS. 1. CONTINUE CCHO 60 GM + RENAL DIET TOLERATED - RECOMMEND TO ADD CHELSEY BID 2. MONITOR NUTRITION THERAPY FOR WOUND HEALING 3. RD TO FOLLOW-UP 3-5 DAYS, MODERATE RISK REVIEWED BY RONI CONCEPCION RD
[2022-05-29] MEDS: HYDROcodone/APAP 5/325 MG 1 TAB TAB PO PRN (15:11)
[2022-05-29 17:26] VITALS: BP 102/51
--- NOTE | 2022-05-29 18:02 | NUR ---
0730 Pt. in bed, sleeping, able to awaken with verbal words, call light in reach 1000 Pt admit done, pt. answered questions, pt. oriented to room, wound care nurse did wound care on mari. feet 1200 Pt. with bs below 200. No acute distress 1600 Pt. bld sugar of 213, covered with insulin as rx'd, given dinner, no distress 1800 Pt. needs met this shift, no distress, aaox4, ambulating independently to bathroom, vss
--- NOTE | 2022-05-29 19:05 | NUR ---
RECEIVED REPORT FROM AM JEREMY CLARK FOR CONTINUITY OF CARE. PT IS SAMANTHA IN BED. A&OX4. DENIES PAIN. ON RM AIR/O2 WITH NO ACUTE DISTRESS. RR EVEN AND UNLABORED. GI IS INTACT HAS MULTIPLE DIABETIC ULCERS.BILATERAL SOLES OF FEET AND SIDE OF R FOOT AND 2ND TOE. ALSO THE 3RD DIGIT R HAND MIDDLE FINGER.DRESSINGS ARE D&I. PT IS A HEMO DIALYSIS PT WITH A JEY AV FISTULA WITH PALPABLE BRUIT. 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 ALL SAFETY MEASURES IN PLACE. BED IN LOW AND LOCKED POSITION. CALL LIGHT WITHIN REACH.
[2022-05-29 20:00] VITALS: BP 116/59
--- NOTE | 2022-05-29 21:30 | NUR ---
HS MEDS GIVEN. PT C/O DIABETIC NEUROPATHY IN BILATERAL FEET. RECEIVED MSO4 1MG IVP WITH RELIEF SLEEPING AFTER 30 MINUTES.
[2022-05-29] MEDS: ATORVASTATIN 20 MG TAB PO SCH (21:46)
[2022-05-30] VITALS: BP 121/60
[2022-05-30 04:00] VITALS: BP 119/59
[2022-05-30] MEDS: BLOOD GLUCOSE MONITORING 1 DEV DEV FS SCH ×4 (06:05→20:25)
[2022-05-30] MEDS: INSULIN LISPRO SLIDING SCALE 100 UNITS/ML VIAL SUBQ PRN ×3 (06:06→20:24)
--- NOTE | 2022-05-30 06:30 | NUR ---
FREQ ROUNDS. CHECKED PT IS STABLE. SLEPT IN 2 HR INTERVALS. KN=168 COVERED WITH 4 UNITS HUMALOG INSULIN PER SLIDING SCALE.
[2022-05-30 07:33] LABS: BASOPHILS # (AUTO) 0.1 K/uL (0.00-0.22); BASOPHILS % (AUTO) 1.9 % (0.0-2.0); EOSINOPHILS # (AUTO) 0.3 K/uL (0-0.4); EOSINOPHILS % (AUTO) 5.4 % (0.0-4.0); HEMATOCRIT 25.8 % (36-52); HEMOGLOBIN 8.8 g/dL (12.0-18.0); LYMPHOCYTES # (AUTO) 0.8 K/uL (2.0-11.5); LYMPHOCYTES % (AUTO) 15.7 % (20.5-51.1); MEAN CORPUSCULAR HEMOGLOBIN 32 pg (27-31); MEAN CORPUSCULAR HGB CONC 34 g/dL (33-37); MEAN CORPUSCULAR VOLUME 93.6 fL (80-94); MONOCYTES # (AUTO) 0.3 K/uL (0.8-1.0); MONOCYTES % (AUTO) 5.6 % (1.7-9.3); NEUTROPHILS # (AUTO) 3.5 K/uL (1.8-7.7); NEUTROPHILS % (AUTO) 71.4 % (42.2-75.2); PLATELET COUNT (AUTO) 273 K/uL (140-450); RED BLOOD CELL COUNT(AUTO) 2.76 MIL/uL (4.20-6.10); RED CELL DISTRIBUTION WIDTH 15.7 % (11.6-13.7); WHITE BLOOD COUNT (AUTO) 4.9 K/uL (4.8-10.8)
--- NOTE | 2022-05-30 07:35 | NUR ---
ENDORSED TO AM NURSE FOR CONTINUITY OF CARE. PT IS STABLE. ALL NEEDS MET THROUGHOUT THE SHIFT.
--- NOTE | 2022-05-30 07:36 | NUR ---
RECEIVED REPORT FROM ICEBOX MAN NURSE FOR CONTINUITY OF CARE. PT IS AWAKE. A&O4, ABLE TO COMMUNICATE NEEDS. RESPIRATIONS EVEN AND UNLABORED ON RA. NO DISTRESS NOTED. IV SITE AT RFA 18G, SL. HD SITE AT JEY AV FISTULA WITH PALPABLE BRUIT PRESENT. CALL LIGHT WITHIN REACH. SAFETY PRECAUTIONS IN PLACE. WILL CONTINUE TO MONITOR.
[2022-05-30 08:00] VITALS: BP 122/59
--- NOTE | 2022-05-30 08:00 | NUR ---
Patient's Plan of Care was discussed and reviewed with PRESALES SENIOR SPECIALIST: JESSICA. WILL CONTINUE WITH CURRENT POC.
[2022-05-30] MEDS: levETIRAcetam 500 MG TAB PO SCH ×2 (08:57→20:12)
[2022-05-30] MEDS: INSULIN LANTUS 100 UNITS/ML 10 ML VIAL SUBQ SCH (08:58)
[2022-05-30] MEDS: NIFEdipine 60 MG TABER PO SCH (08:58)
[2022-05-30] MEDS ORDERED: EPOETIN ALFA-EPBX 10,000 UNITS/ML VIAL SUBQ SCH (09:00)
[2022-05-30] MEDS: PANTOPRAZOLE 40 MG INJ VIAL IVP SCH (09:01)
--- NOTE | 2022-05-30 09:07 | NUR ---
ADMINISTERED SCHEDULED MORNING MEDS. NON-ADMIT BP MED. PT SCHEDULED FOR DIALYSIS TODAY. PT TEACHING ABOUT MEDS GIVEN. PT VERBALIZED UNDERSTANDING. IVP PROTONIX GIVEN BY JEREMY HOPPER. CALL LIGHT WITHIN REACH. SAFETY PRECAUTIONS IN PLACE. WILL CONTINUE TO MONITOR.
[2022-05-30 12:00] VITALS: BP 135/60
--- NOTE | 2022-05-30 12:03 | NUR ---
BLOOD GLUCOSE CHECK DONE. BS 264. SLIDING SCALE INSULIN ADMINISTERED.
[2022-05-30] MEDS: GAUZE TP SCH (13:22)
[2022-05-30 15:31] LABS: ANION GAP 17.3 (8-16); CARBON DIOXIDE 27.1 mmol/L (21-32); POTASSIUM 4.4 mmol/L (3.5-5.1)
[2022-05-30 15:40] LABS: CREATININE 7.3 mg/dL (0.6-1.3)
--- NOTE | 2022-05-30 15:40 | NUR ---
CRITICAL LAB VALUE CREATININE 7.3. PT HAS ONGOING HEMODIALYSIS.
[2022-05-30 16:00] VITALS: BP 143/68
--- NOTE | 2022-05-30 16:33 | NUR ---
BLOOD GLUCOSE CHECK DONE. BS 126. NO INSULIN COVERAGE GIVEN.
--- NOTE | 2022-05-30 16:45 | NUR ---
DID ROUNDS: PT SITTING AT BEDSIDE. EATING DINNER. NO DISTRESS NOTED. DENIES PAIN. CALL LIGHT WITHIN REACH. SAFETY PRECAUTIONS IN PLACE. WILL ENDORSE TO SPRAY RIG OPERATOR NURSE. Addendum: 05/30/22 at 1858 by Sae Lin LVN WRONG TIME
--- NOTE | 2022-05-30 17:20 | NUR ---
HEMODIALYSIS DONE. 3L OUT. V/S STABLE. WILL CONTINUE TO MONITOR.
--- NOTE | 2022-05-30 18:45 | NUR ---
DID ROUNDS: PT SITTING AT BEDSIDE. EATING DINNER. NO DISTRESS NOTED. DENIES PAIN. CALL LIGHT WITHIN REACH. SAFETY PRECAUTIONS IN PLACE. WILL ENDORSE TO GRANULATOR OPERATOR NURSE.
--- NOTE | 2022-05-30 19:29 | NUR ---
ENDORSED PT TO VALVE PIPE IRRIGATOR NURSE FOR CONTINUITY OF CARE. ALL NEEDS MET THROUGHOUT SHIFT. PT IS STABLE.
--- NOTE | 2022-05-30 19:30 | NUR ---
RECEIVED BEDSIDE REPORT FROM DAY SHIFT RN FOR CONTINUITY OF CARE. PT IS AWAKE IN BED ON THE PHONE. PT IS AAOX4 ON RA. PT NOT IN ANY DISTRESS. PT HAS RIGHT FOREARM 18 GAUGE SALINE LOCK. PT IS ABLE TO AMBULATE. DINNER BY BEDSIDE. PT DENIES ANY PAIN. AND HAS NO COMPLAINS. PLAN OF CARE DISCUSSED. CALL LIGHT WITHIN REACH. ALL SAFETY MEASURES TAKEN. WILL CONTINUE TO MONITOR THE PT.
[2022-05-30 20:00] VITALS: BP 143/73
[2022-05-30] MEDS: ATORVASTATIN 20 MG TAB PO SCH (20:12)
--- NOTE | 2022-05-30 20:25 | NUR ---
SCHEDULE MEDS GIVEN. NO ADVERSE REACTION NOTED. PT HAS NO COMPLAINS RIGHT NOW. WILL CONTINUE TO MONITOR THE PT.
[2022-05-30] MEDS: MORPHINE SULFATE 2 MG/ML SYR IVP PRN (23:15)
--- NOTE | 2022-05-30 23:30 | NUR ---
PT COMPLAIN OF BILATERAL FEET PAIN /. PT WAS GIVEN MORPHINE MD ORDER. NO OTHER COMPLAINS. WILL CONTINUE TO MONITOR THE PT.
[2022-05-31] VITALS: BP 145/64
--- NOTE | 2022-05-31 02:06 | NUR ---
PT OBSERVED. PT IS SLEEPING IN BED. VISIBLE RISE AND CHEST FALL. NOT IN ANY DISTRESS. CALL LIGHT WITHIN REACH. WILL CONTINUE TO MONITOR THE PT.
[2022-05-31 04:00] VITALS: BP 149/81
--- NOTE | 2022-05-31 04:00 | NUR ---
PT VITAL STABLE. PT WAS NOT ABLE TO URINE OR HAVE BM TONIGHT. PT HAS NO COMPLAINS AT THIS TIME. WILL CONTINUE TO MONITOR THE PT.
--- NOTE | 2022-05-31 06:30 | NUR ---
PT BLOOD GLUCOSE IS 125. NO COVERAGE NEEDED. WILL CONTINUE TO MONITOR THE PT.
[2022-05-31] MEDS: BLOOD GLUCOSE MONITORING 1 DEV DEV FS SCH ×4 (06:31→21:46)
[2022-05-31 07:17] LABS: BASOPHILS # (AUTO) 0.1 K/uL (0.00-0.22); BASOPHILS % (AUTO) 1.8 % (0.0-2.0); EOSINOPHILS # (AUTO) 0.2 K/uL (0-0.4); EOSINOPHILS % (AUTO) 5.3 % (0.0-4.0); HEMATOCRIT 23.8 % (36-52); LYMPHOCYTES % (AUTO) 24.5 % (20.5-51.1); MEAN CORPUSCULAR HEMOGLOBIN 32 pg (27-31); MEAN CORPUSCULAR HGB CONC 34 g/dL (33-37); MEAN CORPUSCULAR VOLUME 95.1 fL (80-94); MONOCYTES # (AUTO) 0.5 K/uL (0.8-1.0); MONOCYTES % (AUTO) 11.6 % (1.7-9.3); NEUTROPHILS # (AUTO) 2.2 K/uL (1.8-7.7); NEUTROPHILS % (AUTO) 56.8 % (42.2-75.2); PLATELET COUNT (AUTO) 242 K/uL (140-450); RED CELL DISTRIBUTION WIDTH 15.1 % (11.6-13.7); WHITE BLOOD COUNT (AUTO) 3.9 K/uL (4.8-10.8)
--- NOTE | 2022-05-31 07:21 | NUR ---
ENDORSED PT TO DAY SHIFT RN FOR CONTINUITY OF CARE. PT IS STABLE.
--- NOTE | 2022-05-31 07:30 | NUR ---
RECEIVED REPORT FROM ROMULO LUNA. PT A/O X3. ABLE TO MAKE NEEDS KNOWN. HOB ELEVATED. NO SOB OR RESPIRATORY DISTRESS. DENIES PAIN AT THIS TIME. INFORMED PT THAT URINALYSIS STILL NEEDS TO BE COLLECTED. PROVIDED ITEMS FOR PT. PT STATES, "I STILL PRODUCE A LITTLE BIT OF URINE". PT VERBALIZED UNDERSTANDING OF UA COLLECTION AND STOOL OBT. HAT PLACED IN TOILET. IV TO SL. POC DISCUSSED. NEEDS ALL MET AT THIS TIME. SAFETY PRECAUTIONS IN PLACE.
[2022-05-31 07:39] LABS: ANION GAP 13.7 (8-16); CARBON DIOXIDE 26.5 mmol/L (21-32); POTASSIUM 4.2 mmol/L (3.5-5.1)
[2022-05-31 07:52] LABS: CREATININE 5.4 mg/dL (0.6-1.3)
[2022-05-31 08:00] VITALS: BP 165/75
[2022-05-31] MEDS: INSULIN LANTUS 100 UNITS/ML 10 ML VIAL SUBQ SCH (09:41)
[2022-05-31] MEDS: NIFEdipine 60 MG TABER PO SCH (09:43)
[2022-05-31] MEDS: levETIRAcetam 500 MG TAB PO SCH ×2 (09:44→20:36)
[2022-05-31] MEDS: PANTOPRAZOLE 40 MG INJ VIAL IVP SCH (09:45)
[2022-05-31] MEDS ORDERED: VANCOMYCIN 1,000 MG in DEXTROSE 5% 250 ML IV SCH (11:00)
[2022-05-31] MEDS: INSULIN LISPRO SLIDING SCALE 100 UNITS/ML VIAL SUBQ PRN ×2 (11:23→20:39)
[2022-05-31] MEDS: FERROUS SULFATE 325 MG TABEC PO SCH (11:30)
[2022-05-31 12:00] VITALS: BP 178/90
[2022-05-31] MEDS: GAUZE TP SCH (13:18)
[2022-05-31] MEDS ORDERED: hydrALAZINE 20 MG/ML VIAL IVP PRN (13:20)
--- NOTE | 2022-05-31 13:20 | NUR ---
CONTACTED MD REGARDING ELEVATED BP. NEW ORDER FOR PRN HYDRALAZINE.
--- NOTE | 2022-05-31 13:30 | NUR ---
WOUND CARE DRESSING COMPLETED ON BILATERAL FOOT.
--- NOTE | 2022-05-31 13:45 | NUR ---
DR. TYLER CONTACTED FOR CONSULT.
[2022-05-31 16:00] VITALS: BP 158/69
--- NOTE | 2022-05-31 17:00 | NUR ---
DR. LOPEZ (SOCCER REFEREE ROUNDED ON PT). BILATERAL LE DRESSING CHANGED BY DR. LOPEZ. BILATERAL HEEL PROTECTOR IN PLACE. PT WITH NO COMPLAINTS AT THIS TIME. NEEDS ALL MET. SAFETY MEASURES IN PLACE. Addendum: 05/31/22 at 1849 by Agency Nurse, JEREMY RN DR. CARDENAS (SOCCER REFEREE) ROUNDED ON PT. BILATERAL LE DRESSING CHANGED BY DR. CARDENAS. BILATERAL HEEL PROTECTOR IN PLACE. PT TO FOLLOW UP WITH PT'S SOCCER REFEREE DR. CHANDLER. PT WITH NO COMPLAINTS AT THIS TIME. NEEDS ALL MET. SAFETY MEASURES IN PLACE.
[2022-05-31] MEDS: HYDROcodone/APAP 5/325 MG 1 TAB TAB PO PRN (19:06)
--- NOTE | 2022-05-31 19:18 | NUR ---
REPORT GIVEN TO NIGHTSHIFT NURSEMADDY FOR CONTINUITY OF CARE.
--- NOTE | 2022-05-31 19:20 | NUR ---
RECEIVED REPORT FROM AM RN. PATIENT IS AWAKE,ALERT AND ORIENTED. PAIN MEDICATION GIVEN BY AM RN. DENIES SHORTNESS OF BREATH. SKIN WARM AND DRY TO TOUCH. CDI DRESSING BILATERAL FEET WITH HEEL PROTECTORS ON. BED IN THE LOWEST AND LOCKED POSITION FOR SAFETY, CALL LIGHT WITHIN REACH.
[2022-05-31 20:00] VITALS: BP 118/61
[2022-05-31] MEDS: ATORVASTATIN 20 MG TAB PO SCH (20:36)
--- NOTE | 2022-05-31 20:39 | NUR ---
BLLOD SUGAR-200 MG/DL, INSULIN GIVEN PER [employer]ING [employer] COVERAGE ORDERED. PROVIDED HS SNACKS.
[2022-05-31] MEDS: MORPHINE SULFATE 2 MG/ML SYR IVP PRN (21:46)
--- NOTE | 2022-05-31 22:06 | NUR ---
PATIENT ATE HS SNACKS 100%. CALL LIGHT WITHIN REACH.
--- NOTE | 2022-05-31 23:56 | NUR ---
PATIENT ASLEEP. NO S/SX OF PAIN NOR DISCOMFORT. CALL LIGHT WITHIN REACH.
[2022-06-01] VITALS: BP 119/63
--- NOTE | 2022-06-01 02:10 | NUR ---
PATIENT IS ASLEEP. BREATHING EVEN AND UNLABORED. CALL LIGHT WITHIN REACH.
[2022-06-01 04:00] VITALS: BP 139/70
--- NOTE | 2022-06-01 06:08 | NUR ---
ALL NEEDS ATTENDED TO. NO DISTRESS NOTED. SAFETY PRECAUTIONS MAINTAINED DURING THE SHIFT, CALL LIGHT REMAINED WITHIN REACH.
[2022-06-01] MEDS: BLOOD GLUCOSE MONITORING 1 DEV DEV FS SCH ×2 (06:30→11:45)
[2022-06-01] MEDS: INSULIN LISPRO SLIDING SCALE 100 UNITS/ML VIAL SUBQ PRN (06:31)
--- NOTE | 2022-06-01 07:15 | NUR ---
REPORT GIVEN TO AM RN. PATIENT ASLEEP. NO DISTRESS NOTED.
[2022-06-01 07:16] LABS: BASOPHILS # (AUTO) 0.1 K/uL (0.00-0.22); BASOPHILS % (AUTO) 2.3 % (0.0-2.0); EOSINOPHILS # (AUTO) 0.2 K/uL (0-0.4); EOSINOPHILS % (AUTO) 4.2 % (0.0-4.0); HEMATOCRIT 27.4 % (36-52); HEMOGLOBIN 9.2 g/dL (12.0-18.0); LYMPHOCYTES # (AUTO) 0.9 K/uL (2.0-11.5); LYMPHOCYTES % (AUTO) 23.1 % (20.5-51.1); MEAN CORPUSCULAR HEMOGLOBIN 31 pg (27-31); MEAN CORPUSCULAR HGB CONC 34 g/dL (33-37); MEAN CORPUSCULAR VOLUME 92.8 fL (80-94); MONOCYTES # (AUTO) 0.3 K/uL (0.8-1.0); MONOCYTES % (AUTO) 8.3 % (1.7-9.3); NEUTROPHILS # (AUTO) 2.3 K/uL (1.8-7.7); NEUTROPHILS % (AUTO) 62.1 % (42.2-75.2); PLATELET COUNT (AUTO) 278 K/uL (140-450); RED BLOOD CELL COUNT(AUTO) 2.95 MIL/uL (4.20-6.10); WHITE BLOOD COUNT (AUTO) 3.7 K/uL (4.8-10.8)
[2022-06-01 07:21] LABS: ANION GAP 14.4 (8-16); CARBON DIOXIDE 26.9 mmol/L (21-32); POTASSIUM 4.3 mmol/L (3.5-5.1)
--- NOTE | 2022-06-01 07:30 | NUR ---
RECEIVED REPORT FROM RESTAURANT CULINARY MANAGER NURSE FOR CONTINUITY OF CARE, POC DISCUSSED. PT ON ROOM AIR, A&OX4, SR ON TELE MONITOR, URINAL AT BEDSIDE, RIGHT FOREARM 20 SALINE LOCK, BOTTOM RIGHT FOOT AND TOP LEFT FOOT ULCER, POD CONSULT COMPLETE, WOUND CARE NOTES REVIEWED. ALL SAFETY MEASURES IN PLACE, CALL LIGHT WITHIN REACH. WILL CONTINUE TO MONITOR.
[2022-06-01 07:38] LABS: CREATININE 7.4 mg/dL (0.6-1.3)
[2022-06-01 08:00] VITALS: BP 150/74
[2022-06-01] MEDS ORDERED: CRUSHER, PILL MC ONE (08:04)
[2022-06-01] MEDS: PANTOPRAZOLE 40 MG INJ VIAL IVP SCH (08:09)
[2022-06-01] MEDS: FERROUS SULFATE 325 MG TABEC PO SCH (08:10)
[2022-06-01] MEDS: levETIRAcetam 500 MG TAB PO SCH (08:10)
[2022-06-01] MEDS: NIFEdipine 60 MG TABER PO SCH (08:10)
[2022-06-01] MEDS: INSULIN LANTUS 100 UNITS/ML 10 ML VIAL SUBQ SCH (08:12)
[2022-06-01] MEDS ORDERED: ATOR20TA40 PO (12:20)
[2022-06-01] MEDS ORDERED: LANTUS SUBQ (12:20)
[2022-06-01] MEDS ORDERED: FER325 PO (12:20)
[2022-06-01] MEDS: GAUZE TP SCH (13:01)
--- NOTE | 2022-06-01 14:13 | NUR ---
DC PLANNING: THE PATIENT PRESENTED FROM HOME WITH C/O ALOC AND HYPERGLYCEMIA. H/O SEIZURES, ON KEPPRA, OPEN SORES TO RIGHT FOOT ALSO NOTED. H/O CVA, DM, ESRD WITH HD AT [facility] AT 10:30. TEMP OF 101.4 IN ED, CR 5, GLUCOSE 656, BNP 1770. GIVEN IVF'S, ZOSYN, VANCO IN ED, CONSULTS ORDERED WITH PODIATRY AND NEPHROLOGY. PODIATRY NOTES DRY ULCERATIONS TO BILATERAL FEET, CONSERVATIVE MANAGEMENT AND F/U WITH HIS BURNISHER AND BUMPER DR CHANDLER RECOMMENDED. HD TRANSPORT IS PROVIDED BY [facility]. DME OF CANE, WC, CRUTCHES, GLUCOMETER AND SHOWER BENCH, NO PRIOR H/O HOME HEALTH. THE PATIENT LIVES IN A SINGLE STORY HOUSE WITH HIS MOTHER AND SEES HIS PMD DR MACKAY REGULARLY. PATIENT TO CO HOME WHEN STABLE, WITH [facility], BRIE WILL FAX [facility] ORDERS TO HIS INSURANCE [facility] TO ARRANGE. BRIE WILL FOLLOW. Addendum: 06/02/22 at 1104 by Renee Rodgers CM DC PLANNING: BRIE SPOKE WITH BRIE HAGAN FOR [facility]. CM ASKED TO REFER THE PATIENT TO [facility] ([phone]). REFERRAL FAXED, CLINICAL PACKET ALSO FAXED TO [facility]. CM WILL FOLLOW.
--- NOTE | 2022-06-01 15:00 | NUR ---
PT HAS BEEN DISCHARGED IN STABLE CONDITION. WOUND CARE HAS BEEN PROVIDED TO PRIOR TO DISCHARGE, EDUCATION GIVEN AND PT VERBALIZED UNDERSTANDING. DISCHARGE PHOTO TAKEN. ALL EDUCATION REGARDING DISCHARGE, FOLLOW UP APPOINTMENT WITH DR CHANDLER AND PCP PROVIDED, VERBALIZED UNDERSTANDING. CHANGE IN MEDICATION COVERED AND PROVIDED WITH THE PHARMACY LOCATION. ALL QUESTIONS HAS BEEN ANSWERED. PT HAS WOUND CARE AND BELONGINGS IN POSSESSION. SECURITY CALLED REGARDING PT NEED TO BORROW CLOTHES, STATES HE LEFT HIS CLOTHES IN ER, SECURITY DOES NOT HAVE CLOTHES. STATES HE WILL JUST USE DONATED ONES. PT VERBALIZED ADDRESS FOR UBER TO BE TAKEN. HOUSE [employer]OUP CALLED AND ORDERED UBER, PT VERBALIZED HE WILL WAIT OUTSIDE TILL THE UBER HAS ARRIVED. COLOR AND TYPE OF CAR INFORMATION GIVEN TO PT, PT VERBALIZED UNDERSTANDING. IV REMOVED, CATH IN PLACE. ID BAND REMOVED. TELE BOX RETURNED TO PM HEAD COOK. PT WHEELCHAIRED OUT IN STABLE CONDITION.
== END 2022-06-01 15:14 | disposition home or self-care (01) | DRG 637 ==
LOC: MED 21:23 → MTU 23:05
PROVIDERS: ADMIT Hospitalist; ATTEND Hospitalist
PROC: 30233N1 Transfusion of Nonautologous Red Blood Cells into Peripheral Vein, Percutaneous Approach (ICD-10-PCS; principal; 2022-05-29)
PROC: 5A1D70Z Performance of Urinary Filtration, Intermittent, Less than 6 Hours Per Day (ICD-10-PCS; 2022-05-30)
DX: E11.65 Type 2 diabetes mellitus with hyperglycemia (principal); E43 Unspecified severe protein-calorie malnutrition; N18.6 End stage renal disease; G93.41 Metabolic encephalopathy; E87.1 Hypo-osmolality and hyponatremia; I13.2 Hypertensive heart and chronic kidney disease with heart failure and with stage 5 chronic kidney disease, or end stage renal disease; I69.351 Hemiplegia and hemiparesis following cerebral infarction affecting right dominant side; G40.909 Epilepsy, unspecified, not intractable, without status epilepticus; I50.9 Heart failure, unspecified; E11.22 Type 2 diabetes mellitus with diabetic chronic kidney disease; D63.8 Anemia in other chronic diseases classified elsewhere; L97.529 Non-pressure chronic ulcer of other part of left foot with unspecified severity; L97.519 Non-pressure chronic ulcer of other part of right foot with unspecified severity; Z20.822 Contact with and (suspected) exposure to COVID-19; M85.80 Other specified disorders of bone density and structure, unspecified site; M77.9 Enthesopathy, unspecified; E78.5 Hyperlipidemia, unspecified; Z99.2 Dependence on renal dialysis; Z79.82 Long term (current) use of aspirin; Z79.899 Other long term (current) drug therapy
CPT/HCPCS: 36415; 36430; 36600; 70450; 71045; 73620; 80048; 80053; 80202; 82550; 82553; 82728; 82803; 82948; 83036; 83540; 83605; 83735; 83874; 83880; 84100; 84484; 85025; 86886; 86900; 86901; 86920; 87040; 87081; 93005; 96365; 96366; 96367; 99285; C9113; J0360; J1815; J1953; J2270; J2543; J3370; J7060; P9016; Q0092; Q5106

== ENCOUNTER 2022-06-11 07:13 | Emergency (ER) | payer OTHER ==
[~2022-06-11] VITALS: Ht 175.3 cm; Wt 79.4 kg
[~2022-06-11 07:13] MED LIST changes: -AMOX-999 PO; +ATOR20TA40 PO; +FER325 PO; -FURO-572 PO; -GABA300C PO; -INSU100S22 SUBQ; +LANTUS SUBQ; -LEVO-481 PO; -LISI-487 PO
--- NOTE | 2022-06-11 07:15 | NUR ---
PT MARY ALS. TAKEN TO BED 1
--- NOTE | 2022-06-11 07:29 | NUR ---
MARY FROM HOME D/T ALOC WITH BS 34 AT SCENE. GIVEN D10 AT SCENE AND BS WENT BACK UP TO 150 BOAT PILOT. BS NOW 102 AT BEDSIDE AND GCS 15. PT IS MORE ALERT, VITALS STABLE. PT STATES HE "MAY HAVE TAKEN MORE INSULIN THAN DIRECTED" ACCIDENTALLY. PT HAS DIALYSIS TU,THR, SAT. STATES HE HAS DIALYSIS APPOINTMENT TODAY AT 10AM. ON MONITOR PMH: DM2, DIALYSIS ON L UPPER ARM, HTN, STROKE (2005).
--- NOTE | 2022-06-11 07:31 | NUR ---
PT USING BEDPAN FOR DEFECATION
--- NOTE | 2022-06-11 07:33 | NUR ---
EKG AT BEDSIDE
--- NOTE | 2022-06-11 07:45 | NUR ---
BLOOD COLLECTED AND SENT TO LAB. UNABLE TO PRODUCE URINE AT THIS TIME. WILL ATTEMPT AT A LATER TIME. ERMD AWARE
--- NOTE | 2022-06-11 08:08 | NUR ---
PT'S MOM CALLED. PROVIDED CONTACT INFO FOR PT'S SISTER LEMUEL: [phone]
[2022-06-11 08:11] LABS: BASOPHILS % (AUTO) 0.5 % (0.0-2.0); EOSINOPHILS # (AUTO) 0.1 K/uL (0-0.4); EOSINOPHILS % (AUTO) 0.8 % (0.0-4.0); HEMATOCRIT 28.9 % (36-52); HEMOGLOBIN 9.4 g/dL (12.0-18.0); LYMPHOCYTES # (AUTO) 0.7 K/uL (2.0-11.5); LYMPHOCYTES % (AUTO) 9.5 % (20.5-51.1); MEAN CORPUSCULAR HEMOGLOBIN 30 pg (27-31); MEAN CORPUSCULAR HGB CONC 33 g/dL (33-37); MEAN CORPUSCULAR VOLUME 92.5 fL (80-94); MONOCYTES # (AUTO) 0.5 K/uL (0.8-1.0); MONOCYTES % (AUTO) 6.3 % (1.7-9.3); NEUTROPHILS # (AUTO) 6.5 K/uL (1.8-7.7); NEUTROPHILS % (AUTO) 82.9 % (42.2-75.2); PLATELET COUNT (AUTO) 364 K/uL (140-450); RED BLOOD CELL COUNT(AUTO) 3.13 MIL/uL (4.20-6.10); RED CELL DISTRIBUTION WIDTH 15.2 % (11.6-13.7); WHITE BLOOD COUNT (AUTO) 7.9 K/uL (4.8-10.8)
[2022-06-11 08:25] LABS: ALBUMIN 2.3 g/dL (3.4-5.0); ANION GAP 13.8 (8-16); CARBON DIOXIDE 30.6 mmol/L (21-32); POTASSIUM 4.4 mmol/L (3.5-5.1); TOTAL BILIRUBIN 0.3 mg/dL (0.0-1.0)
[2022-06-11 08:29] LABS: CREATININE 7.1 mg/dL (0.6-1.3)
[2022-06-11] MEDS ORDERED: DEXTROSE 50% 50 ML SYR IVP ONE ×2 (08:57→09:00)
--- NOTE | 2022-06-11 09:00 | NUR ---
PER ERMD VERBAL ORDER, ADMINISTERED D50 50ML IV.
--- NOTE | 2022-06-11 10:19 | NUR ---
SHANNAN REQUESTED FOR RIDE BACK HOME. PT STATES HE WISHES TO GO HOME
[2022-06-11 10:22] VITALS: BP 157/89
--- NOTE | 2022-06-11 10:22 | NUR ---
PT GIVEN PANTS AND SHIRT FOR DC
== END 2022-06-11 10:30 | disposition home or self-care (01) ==
LOC: MED 07:13
DX: T50.991A Poisoning by other drugs, medicaments and biological substances, accidental (unintentional), initial encounter (principal); E11.649 Type 2 diabetes mellitus with hypoglycemia without coma; R41.82 Altered mental status, unspecified; Y92.89 Other specified places as the place of occurrence of the external cause
CPT/HCPCS: 36415; 71045; 80053; 83880; 84484; 85025; 93005; 96374; 99285; Q0092

== ENCOUNTER 2022-06-12 08:57 | Emergency (ER) | payer OTHER ==
[~2022-06-12] VITALS: Ht 182.9 cm; Wt 86.6 kg
--- NOTE | 2022-06-12 08:58 | NUR ---
PT BIBA TO BED 01.
[2022-06-12] MEDS ORDERED: DEXTROSE 50% 50 ML SYR IVP ONE (09:00)
[2022-06-12 09:08] VITALS: BP 152/61
--- NOTE | 2022-06-12 09:08 | NUR ---
Dr. Sahni is evaluating patient at bedside
--- NOTE | 2022-06-12 09:22 | NUR ---
57 Y/O MALE BIBA FROM HOME C/O OF HYPOGLYCEMIA. PER EMS ACCUCHECK ON SCENE 42. EMS BS 62 AFTER PT DRANK A SODA AND ATE A SANDWICH. EMS BS PRIOR TO ARRIVAL 99, BS OMN SCENE IN TRIAGE 99. PT A/OX4, DENIES N/V/DIZZINESS, C/O PAIN 04/10 FOR OLD CELLULITIS ON THE RIGHT HEEL. PT C/O OF HUNGER, GIVEN SANDWICH AND ORANGE JUICE. Dialysis //Wed; missed last 3 treatments PMH: DM, ESRD, irregular heartbeat NKDA
--- NOTE | 2022-06-12 09:31 | NUR ---
PER DR JAMES, DONT GIVE THE DEXTROSE AT THE MOMENT
--- NOTE | 2022-06-12 09:35 | NUR ---
XRAY AT BEDSIDE
[2022-06-12 09:45] LABS: BASOPHILS # (AUTO) 0.1 K/uL (0.00-0.22); BASOPHILS % (AUTO) 2.2 % (0.0-2.0); EOSINOPHILS # (AUTO) 0.1 K/uL (0-0.4); EOSINOPHILS % (AUTO) 2.2 % (0.0-4.0); HEMATOCRIT 24.8 % (36-52); HEMOGLOBIN 8.2 g/dL (12.0-18.0); LYMPHOCYTES # (AUTO) 0.9 K/uL (2.0-11.5); LYMPHOCYTES % (AUTO) 15.3 % (20.5-51.1); MEAN CORPUSCULAR HEMOGLOBIN 31 pg (27-31); MEAN CORPUSCULAR HGB CONC 33 g/dL (33-37); MEAN CORPUSCULAR VOLUME 94.8 fL (80-94); MONOCYTES # (AUTO) 0.4 K/uL (0.8-1.0); MONOCYTES % (AUTO) 6.1 % (1.7-9.3); NEUTROPHILS # (AUTO) 4.5 K/uL (1.8-7.7); NEUTROPHILS % (AUTO) 74.2 % (42.2-75.2); PLATELET COUNT (AUTO) 325 K/uL (140-450); RED BLOOD CELL COUNT(AUTO) 2.61 MIL/uL (4.20-6.10); RED CELL DISTRIBUTION WIDTH 15.2 % (11.6-13.7)
[2022-06-12 09:56] LABS: ALBUMIN 2.2 g/dL (3.4-5.0); ANION GAP 13.6 (8-16); CARBON DIOXIDE 28.5 mmol/L (21-32); POTASSIUM 5.1 mmol/L (3.5-5.1); TOTAL BILIRUBIN 0.4 mg/dL (0.0-1.0)
[2022-06-12 09:57] LABS: CREATININE 8.3 mg/dL (0.6-1.3)
--- NOTE | 2022-06-12 10:45 | NUR ---
DR JAMES SPEAKING TO PT
--- NOTE | 2022-06-12 10:51 | NUR ---
Patient does not wish to proceed with medical care recommended by DR JORDAN JAMES. Patient given information related to possible complications, up to and including , which could occur as a result of leaving hospital at this time. Patient verbalizes understanding of risks involved leaving against medical advice. Patient has signed AMA form.
== END 2022-06-12 10:51 | disposition left against medical advice (07) ==
LOC: MED 08:57
DX: E11.65 Type 2 diabetes mellitus with hyperglycemia (principal); Z20.822 Contact with and (suspected) exposure to COVID-19; Z79.4 Long term (current) use of insulin; Z79.899 Other long term (current) drug therapy
CPT/HCPCS: 36415; 71045; 80053; 83880; 84484; 85025; 93005; 99285

== ENCOUNTER 2022-06-22 09:46 | Emergency (ER) | payer OTHER ==
[~2022-06-22] VITALS: Ht 182.9 cm; Wt 85.3 kg
[2022-06-22 10:03] VITALS: BP 168/74
--- NOTE | 2022-06-22 11:00 | NUR ---
57 Y/O MALE BIB SELF PRESENTS TO THE ED FOR REFERRAL FOR LEFT ANKLE XRAY 3 VIEWS BY AFRICA SMITH. DENIES ANY TRAUMA/INJURY NKA PMH: CKD, HTN, DIALYSIS TTHS, DM
--- NOTE | 2022-06-22 12:30 | NUR ---
CALLED PT IN REGARDS TO COMING BACK TO THE ED TO CONTINUE HIS CARE. PT STATED HE WOULD COME BACK.
--- NOTE | 2022-06-22 15:18 | NUR ---
Patient discharged with v/s stable. Written and verbal after care instructions ABOUT ANKLE AND TIBIA FRACTURE given and explained. Patient verbalized understanding. Ambulatory with steady gait. All questions addressed prior to discharge. Advised to follow up with PMD.
== END 2022-06-22 15:18 | disposition home or self-care (01) ==
LOC: MED 09:46
DX: S82.402A Unspecified fracture of shaft of left fibula, initial encounter for closed fracture (principal); S82.892A Other fracture of left lower leg, initial encounter for closed fracture; I10 Essential (primary) hypertension; E11.9 Type 2 diabetes mellitus without complications; N18.9 Chronic kidney disease, unspecified; Z86.73 Personal history of transient ischemic attack (TIA), and cerebral infarction without residual deficits; Z79.4 Long term (current) use of insulin; Z79.899 Other long term (current) drug therapy; X58.XXXA Exposure to other specified factors, initial encounter; Y93.89 Activity, other specified; Y92.89 Other specified places as the place of occurrence of the external cause; Y99.8 Other external cause status
CPT/HCPCS: 29505; 73590; 73610; 99284

== ENCOUNTER 2022-07-17 10:33 | Emergency (ER) | payer OTHER ==
[~2022-07-17] VITALS: Ht 182.9 cm; Wt 84.8 kg
[2022-07-17 10:37] VITALS: BP 133/75
--- NOTE | 2022-07-17 12:14 | NUR ---
PT WC ASSISTED TO RAD
--- NOTE | 2022-07-17 12:46 | NUR ---
57/M PRESENTS TO ED WITH C/O LEFT ANKLE PAIN, STATES HE WAS REFERRED TO ED BY PCP FOR XRAY AND FURTHER EVAL. STATES INJURY WAS 3 MONTHS AGO AND WAS PLACED IN A BOOT.
[2022-07-17] MEDS ORDERED: BACI1PAC6 TP (13:16)
--- NOTE | 2022-07-17 13:36 | NUR ---
Patient discharged with v/s stable. Written and verbal after care instructions ABOUT ANKLE FRACUTRE AND PREVENTING PRESURE INJURIESgiven and explained. Patient verbalized understanding. Ambulatory with steady gait. All questions addressed prior to discharge. Advised to follow up with PMD.
== END 2022-07-17 13:36 | disposition home or self-care (01) ==
LOC: MED 10:33
DX: S82.892A Other fracture of left lower leg, initial encounter for closed fracture (principal); E11.621 Type 2 diabetes mellitus with foot ulcer; I25.10 Atherosclerotic heart disease of native coronary artery without angina pectoris; I10 Essential (primary) hypertension; N18.9 Chronic kidney disease, unspecified; Z79.4 Long term (current) use of insulin; Z79.899 Other long term (current) drug therapy; X58.XXXA Exposure to other specified factors, initial encounter; Y93.89 Activity, other specified; Y92.89 Other specified places as the place of occurrence of the external cause; Y99.8 Other external cause status
CPT/HCPCS: 73610; 99283

== ENCOUNTER 2022-07-27 11:36 | Outpatient (CLI) | payer OTHER ==
[~2022-07-27 11:36] MED LIST changes: +BACI1PAC6 TP
[2022-07-27 12:04] LABS: BASOPHILS # (AUTO) 0.2 K/uL (0.00-0.22); BASOPHILS % (AUTO) 2.3 % (0.0-2.0); EOSINOPHILS # (AUTO) 0.2 K/uL (0-0.4); EOSINOPHILS % (AUTO) 3.7 % (0.0-4.0); HEMATOCRIT 29.1 % (36-52); HEMOGLOBIN 9.5 g/dL (12.0-18.0); LYMPHOCYTES # (AUTO) 1.1 K/uL (2.0-11.5); MEAN CORPUSCULAR HEMOGLOBIN 29 pg (27-31); MEAN CORPUSCULAR HGB CONC 33 g/dL (33-37); MEAN CORPUSCULAR VOLUME 87.4 fL (80-94); MONOCYTES # (AUTO) 0.4 K/uL (0.8-1.0); MONOCYTES % (AUTO) 5.7 % (1.7-9.3); NEUTROPHILS # (AUTO) 4.8 K/uL (1.8-7.7); NEUTROPHILS % (AUTO) 72.3 % (42.2-75.2); PLATELET COUNT (AUTO) 338 K/uL (140-450); RED BLOOD CELL COUNT(AUTO) 3.33 MIL/uL (4.20-6.10); RED CELL DISTRIBUTION WIDTH 15.8 % (11.6-13.7); WHITE BLOOD COUNT (AUTO) 6.6 K/uL (4.8-10.8)
[2022-07-27 12:16] LABS: ANION GAP 12.8 (8-16); CARBON DIOXIDE 32.8 mmol/L (21-32); POTASSIUM 3.6 mmol/L (3.5-5.1)
[2022-07-27 12:20] LABS: ALBUMIN 2.7 g/dL (3.4-5.0); ANION GAP 12.6 (8-16); POTASSIUM 3.6 mmol/L (3.5-5.1); TOTAL BILIRUBIN 0.4 mg/dL (0.0-1.0)
[2022-07-27 12:33] LABS: CREATININE 6.3 mg/dL (0.6-1.3)
[2022-07-27 12:34] LABS: CREATININE 6.3 mg/dL (0.6-1.3)
== END 2022-07-27 23:59 | disposition home or self-care (01) ==
LOC: MLB 11:36 → EDSTATUS 08-03 13:31
PROVIDERS: ATTEND Podiatrist Foot & Ankle Surgery
DX: Z01.818 Encounter for other preprocedural examination (principal); S82.852E Displaced trimalleolar fracture of left lower leg, subsequent encounter for open fracture type I or II with routine healing; X58.XXXD Exposure to other specified factors, subsequent encounter
CPT/HCPCS: 36415; 71046; 80048; 80053; 83036; 85025; 85730; 93005

== ENCOUNTER 2022-08-16 11:03 | Emergency (ER) | payer OTHER ==
[~2022-08-16] VITALS: Ht 182.9 cm; Wt 83.9 kg
[2022-08-16 11:13] VITALS: BP 171/71
--- NOTE | 2022-08-16 11:22 | NUR ---
PT AMB TO BED 10
--- NOTE | 2022-08-16 11:58 | NUR ---
pt taken to imaging via wheelchair
[2022-08-16 12:05] LABS: BASOPHILS # (AUTO) 0.2 K/uL (0.00-0.22); BASOPHILS % (AUTO) 2.9 % (0.0-2.0); EOSINOPHILS # (AUTO) 0.1 K/uL (0-0.4); EOSINOPHILS % (AUTO) 1.2 % (0.0-4.0); HEMATOCRIT 31.6 % (36-52); HEMOGLOBIN 9.9 g/dL (12.0-18.0); LYMPHOCYTES # (AUTO) 0.7 K/uL (2.0-11.5); LYMPHOCYTES % (AUTO) 12.4 % (20.5-51.1); MEAN CORPUSCULAR HEMOGLOBIN 29 pg (27-31); MEAN CORPUSCULAR HGB CONC 31 g/dL (33-37); MEAN CORPUSCULAR VOLUME 92.1 fL (80-94); MONOCYTES # (AUTO) 0.3 K/uL (0.8-1.0); MONOCYTES % (AUTO) 5.8 % (1.7-9.3); NEUTROPHILS # (AUTO) 4.4 K/uL (1.8-7.7); NEUTROPHILS % (AUTO) 77.7 % (42.2-75.2); PLATELET COUNT (AUTO) 312 K/uL (140-450); RED BLOOD CELL COUNT(AUTO) 3.43 MIL/uL (4.20-6.10); RED CELL DISTRIBUTION WIDTH 17.4 % (11.6-13.7); WHITE BLOOD COUNT (AUTO) 5.7 K/uL (4.8-10.8)
[2022-08-16 12:26] LABS: ALBUMIN 2.6 g/dL (3.4-5.0); ANION GAP 11.7 (8-16); CARBON DIOXIDE 32.7 mmol/L (21-32); POTASSIUM 4.4 mmol/L (3.5-5.1); TOTAL BILIRUBIN 0.5 mg/dL (0.0-1.0)
[2022-08-16 12:42] LABS: CREATININE 5.5 mg/dL (0.6-1.3)
[2022-08-16] MEDS ORDERED: INSULIN REGULAR, HUMAN 100 UNIT/ML VIAL SUBQ ONE (12:55)
[2022-08-16] MEDS ORDERED: ACET-10509 PO (13:49)
[2022-08-16] MEDS ORDERED: LID5T TP (13:51)
--- NOTE | 2022-08-16 14:30 | NUR ---
Yariel mendoza in EDM - 08/16/22 at 1537 by MEDR Patient discharged with v/s stable. Written and verbal after care instructions given and explained. Patient verbalized understanding. Ambulatory with steady gait. All questions addressed prior to discharge. Advised to follow up with PMD.
--- NOTE | 2022-08-16 15:37 | NUR ---
Patient does not wish to proceed with medical care recommended by joshua cormier/krystian. Patient given information related to possible complications, up to and including , which could occur as a result of leaving hospital at this time. Patient verbalizes understanding of risks involved leaving against medical advice. Patient has signed AMA form.
== END 2022-08-16 14:30 | disposition left against medical advice (07) ==
LOC: MED 11:03
DX: S22.31XA Fracture of one rib, right side, initial encounter for closed fracture (principal); E11.65 Type 2 diabetes mellitus with hyperglycemia; I10 Essential (primary) hypertension; N18.9 Chronic kidney disease, unspecified; Z86.73 Personal history of transient ischemic attack (TIA), and cerebral infarction without residual deficits; Z79.4 Long term (current) use of insulin; Z79.899 Other long term (current) drug therapy; X58.XXXA Exposure to other specified factors, initial encounter; Y93.89 Activity, other specified; Y92.89 Other specified places as the place of occurrence of the external cause; Y99.8 Other external cause status
CPT/HCPCS: 36415; 71101; 80053; 85025; 96372; 99284; J1815

== ENCOUNTER 2022-10-07 10:34 | Emergency (ER) | payer OTHER ==
[~2022-10-07] VITALS: Ht 182.9 cm; Wt 81.6 kg
[~2022-10-07 10:34] MED LIST changes: +ACET-10509 PO; +LID5T TP
[2022-10-07 10:39] VITALS: BP 160/68
--- NOTE | 2022-10-07 11:26 | NUR ---
PT LEFT WITHOUT DC PAPERWORK
== END 2022-10-07 11:26 | disposition home or self-care (01) ==
LOC: MED 10:34
DX: G89.29 Other chronic pain (principal); M25.572 Pain in left ankle and joints of left foot; E11.9 Type 2 diabetes mellitus without complications; I10 Essential (primary) hypertension; Z02.89 Encounter for other administrative examinations; Z86.73 Personal history of transient ischemic attack (TIA), and cerebral infarction without residual deficits; Z98.890 Other specified postprocedural states; Z79.82 Long term (current) use of aspirin; Z79.899 Other long term (current) drug therapy; Z79.4 Long term (current) use of insulin
CPT/HCPCS: 99281

== ENCOUNTER 2022-10-21 10:33 | Emergency (ER) | payer OTHER ==
[~2022-10-21 10:33] MED LIST changes: +BACI-416 TP; -BACI1PAC6 TP
--- NOTE | 2022-10-21 11:00 | NUR ---
PATIENT STATED HE CHANGED HIS MIND AND WILL GO TO [facility] HE WAS REFERRED THERE FOR CARDIAC CLEARANCE AND REPEAT XRAYS OF LEFT ANKLE. PATIENT IS ALERT AND ORIENTED X 4, NO S/S OF ACUTE DISTRESS.
== END 2022-10-21 11:00 | disposition left against medical advice (07) ==
LOC: MED 10:33
DX: Z53.21 Procedure and treatment not carried out due to patient leaving prior to being seen by health care provider (principal)

== ENCOUNTER 2022-11-03 15:58 | Inpatient (IN) | payer OTHER ==
[~2022-11-03] VITALS: Ht 182.9 cm; Wt 81.6 kg
[2022-11-03 16:06] VITALS: BP 154/77
--- NOTE | 2022-11-03 16:15 | NUR ---
pt wheelchair assisted with own wheelchair to bed 09
--- NOTE | 2022-11-03 17:30 | NUR ---
pt here for wound to left foot x6 months. iv inserted to right fa #[id number]. pending further orders.
[2022-11-03 17:31] LABS: BASOPHILS % (AUTO) 0.5 % (0.0-2.0); EOSINOPHILS # (AUTO) 1.1 K/uL (0-0.4); EOSINOPHILS % (AUTO) 17.3 % (0.0-4.0); HEMATOCRIT 38.2 % (36-52); HEMOGLOBIN 12.6 g/dL (12.0-18.0); LYMPHOCYTES # (AUTO) 0.8 K/uL (2.0-11.5); LYMPHOCYTES % (AUTO) 13.6 % (20.5-51.1); MEAN CORPUSCULAR HEMOGLOBIN 30 pg (27-31); MEAN CORPUSCULAR HGB CONC 33 g/dL (33-37); MEAN CORPUSCULAR VOLUME 91.2 fL (80-94); MONOCYTES # (AUTO) 0.4 K/uL (0.8-1.0); MONOCYTES % (AUTO) 7.1 % (1.7-9.3); NEUTROPHILS # (AUTO) 3.8 K/uL (1.8-7.7); NEUTROPHILS % (AUTO) 61.5 % (42.2-75.2); PLATELET COUNT (AUTO) 418 K/uL (140-450); RED BLOOD CELL COUNT(AUTO) 4.19 MIL/uL (4.20-6.10); RED CELL DISTRIBUTION WIDTH 18.4 % (11.6-13.7); WHITE BLOOD COUNT (AUTO) 6.2 K/uL (4.8-10.8)
[2022-11-03 17:51] LABS: ALBUMIN 2.8 g/dL (3.4-5.0); ANION GAP 12.6 (8-16); CARBON DIOXIDE 36.7 mmol/L (21-32); POTASSIUM 3.3 mmol/L (3.5-5.1); TOTAL BILIRUBIN 0.5 mg/dL (0.0-1.0)
[2022-11-03 17:54] LABS: CREATININE 4.5 mg/dL (0.6-1.3)
[2022-11-03] MEDS ORDERED: VANCOMYCIN PER PHARMACY MC PRN ×2 (18:10→22:15)
[2022-11-03] MEDS ORDERED: VANCOMYCIN 1,000 MG in DEXTROSE 5% 250 ML IV ONE (18:10)
[2022-11-03] MEDS ORDERED: cefTRIAXone 2,000 MG in DEXTROSE 5% 100 ML IV ONE (18:10)
[2022-11-03] MEDS ORDERED: cefTRIAXone 2,000 MG VIAL ONE (18:26)
[2022-11-03] MEDS ORDERED: VANCOMYCIN 1,000 MG VIAL ONE (18:27)
--- NOTE | 2022-11-03 18:42 | NUR ---
antibiotics infusing per order. tolerating well, nad
--- NOTE | 2022-11-03 18:58 | NUR ---
SWABBED FOR COVID AND SENT TO LAB
--- NOTE | 2022-11-03 19:40 | NUR ---
ASSUMED CARE OF PT AT THIS TIME. PT IN POSITION OF COMFORT. DENIES ANY PAIN AT THIS TIME. REQUESTING FOOD. WILL FOLLOW UP WITH DIET. VSS. UPDATED PT ON POC WITH FULL RETURNED VERBAL UNDERSTANDING. AWAITING ADMISSION AND POSSIBLE BED ASSIGNMENT.
--- NOTE | 2022-11-03 19:55 | NUR ---
PICTURES OF WOUND TAKEN AT THIS TIME. DRESSING APPLIED AT THIS TIME. BLANKETS PROVIDED AND PT IN POSITION OF COMFORT. AWAITING BED ASSIGNMENT.
[2022-11-03] MEDS ORDERED: ONDANSETRON 4 MG/2 ML VIAL ONE (20:40)
[2022-11-03] MEDS ORDERED: guaiFENesin DM 200/20 MG-10 ML 10 ML UDC PO PRN (22:10)
[2022-11-03] MEDS ORDERED: DOCUSATE SODIUM 100 MG GELCAP PO PRN (22:10)
[2022-11-03] MEDS ORDERED: POTASSIUM CHLORIDE 10 MEQ TABER PO PRN (22:10)
[2022-11-03] MEDS ORDERED: ONDANSETRON 4 MG/2 ML VIAL IM/IVP PRN (22:10)
[2022-11-03 23:02] LABS: PROTHROMBIN TIME 10.8 secs (10.8-13.4)
[2022-11-03 23:17] LABS: CHOL/HDL RATIO 2.4 (1-4.5); FREE T4 (FREE THYROXINE) 1.12 ng/dL (0.76-1.46); MAGNESIUM 1.9 mg/dL (1.8-2.4); PHOSPHORUS 4.1 mg/dL (2.5-4.9); THYROID STIMULATING HORMONE 1.66 uIU/mL (0.34-3.74)
[2022-11-03] MEDS ORDERED: INSULIN LISPRO SLIDING SCALE 100 UNITS/ML VIAL SUBQ PRN (23:50)
--- NOTE | 2022-11-03 23:55 | NUR ---
ACCUCHECK 233 WILL FOLLOW THROUGH WITH INSULIN ORDERS.
--- NOTE | 2022-11-04 | NUR ---
PT PROVIDED FOOD, MEDICATED FOR PAIN AND INSULIN GIVEN PER ORDERS. PT IN POSITION OF COMFORT.
[2022-11-04] MEDS: ZOLPIDEM 5 MG TAB PO PRN ×2 (00:17→22:09)
[2022-11-04] MEDS: HYDROcodone/APAP 7.5/325 MG 1 TAB PO PRN (00:18)
--- NOTE | 2022-11-04 02:00 | NUR ---
Patient appears to be resting comfortably in bed. Vital Signs within normal limits. Respirations even and unlabored.
--- NOTE | 2022-11-04 04:00 | NUR ---
Patient appears to be resting comfortably in bed. Vital Signs within normal limits. Respirations even and unlabored.
--- NOTE | 2022-11-04 06:00 | NUR ---
Patient appears to be resting comfortably in bed. Vital Signs within normal limits. Respirations even and unlabored.
--- NOTE | 2022-11-04 07:39 | NUR ---
RECEIVED REPORT FROM MARITO LUNA, ASSUMED CARE AT THIS TIME.
[2022-11-04 07:47] LABS: BASOPHILS # (AUTO) 0.2 K/uL (0.00-0.22); BASOPHILS % (AUTO) 2.8 % (0.0-2.0); EOSINOPHILS # (AUTO) 1.2 K/uL (0-0.4); EOSINOPHILS % (AUTO) 18.5 % (0.0-4.0); HEMATOCRIT 35.4 % (36-52); HEMOGLOBIN 11.5 g/dL (12.0-18.0); LYMPHOCYTES # (AUTO) 1.2 K/uL (2.0-11.5); LYMPHOCYTES % (AUTO) 18.8 % (20.5-51.1); MEAN CORPUSCULAR HEMOGLOBIN 30 pg (27-31); MEAN CORPUSCULAR HGB CONC 32 g/dL (33-37); MEAN CORPUSCULAR VOLUME 92.5 fL (80-94); MONOCYTES # (AUTO) 0.6 K/uL (0.8-1.0); MONOCYTES % (AUTO) 8.7 % (1.7-9.3); NEUTROPHILS # (AUTO) 3.4 K/uL (1.8-7.7); NEUTROPHILS % (AUTO) 51.2 % (42.2-75.2); PLATELET COUNT (AUTO) 360 K/uL (140-450); RED BLOOD CELL COUNT(AUTO) 3.83 MIL/uL (4.20-6.10); RED CELL DISTRIBUTION WIDTH 18.1 % (11.6-13.7); WHITE BLOOD COUNT (AUTO) 6.6 K/uL (4.8-10.8)
[2022-11-04 07:51] LABS: CARBON DIOXIDE 34.9 mmol/L (21-32); POTASSIUM 3.9 mmol/L (3.5-5.1)
[2022-11-04 08:00] LABS: CREATININE 5.8 mg/dL (0.6-1.3)
--- NOTE | 2022-11-04 08:35 | NUR ---
Patient will be admitted to care of DR. KOROMA. Admited to Med/Surg. Will go to room 116. Belongings list completed. Report to YEFRI LUNA.
--- NOTE | 2022-11-04 09:03 | NUR ---
PATIENT HAS BEEN SCREENED AND CATEGORIZED MODERATE NUTRITION RISK. PATIENT WILL BE SEEN WITHIN 3-5 DAYS OF ADMISSION. REVIEWED BY RONI CONCEPCION RD
[2022-11-04 09:30] VITALS: BP 145/68
[2022-11-04] MEDS: PANTOPRAZOLE 40 MG TABEC PO SCH (09:49)
--- NOTE | 2022-11-04 10:25 | NUR ---
RECEIVE REPORT FROM ER NURSE THAT PATIENT COME FROM HOME FOR L. ANKLE WOUND GETTING WORES, WHICH DIAGNOSIS WITH OSTEOMYELITIS. PATIENT HAS HX. OF DM, HTN, ESRD ON HEMODIALYSIS @T.TH.SAT., EPILEPSY, A. FIB. PATIENT IA AMBULATORY WITH WHEELCHAIR, ALERT X4 ON ROOM AIR, NKA, FULL CODE. VITAL WITHIN PATIENT'S BASELIN (T-P-R: 98.0-71-20, BP: 145/68, O2 SAT: 97% IN ROOM AIR) PIV AT R. FOREARM 20G PATENT. WOUND PRESENT AT L. LOWER EXTREMITY. JUST RECEIVE DIALYSIS ORDER. WAITING FOR PATIENT TO GIVE NURSE URINE SPECIMEN/SAMPLE. WILL CONTINUE TO MONITOR
[2022-11-04] MEDS ORDERED: DEXTROSE 50% 50 ML SYR IVP PRN (14:00)
[2022-11-04] MEDS: levETIRAcetam 100 MG/ML ORASYR PO SCH ×2 (14:26→21:47)
[2022-11-04] MEDS: INSULIN LANTUS 100 UNITS/ML 10 ML VIAL SUBQ SCH (14:27)
[2022-11-04] MEDS: INSULIN LISPRO SLIDING SCALE 100 UNITS/ML VIAL SUBQ PRN ×3 (14:28→22:03)
[2022-11-04 16:00] VITALS: BP 146/63
[2022-11-04] MEDS: BLOOD GLUCOSE MONITORING 1 DEV DEV FS SCH ×2 (16:50→21:56)
[2022-11-04] MEDS: GABAPENTIN 300 MG CAP PO SCH (17:35)
--- NOTE | 2022-11-04 19:30 | NUR ---
RECEIVED REPORT FROM DAY SHIFT NURSE YEFRI FOR CONTINUITY OF CARE. PATIENT IS A&O X3-4. PATIENT IS ON ROOM AIR; BREATHING IS NORMAL WITH SYMMETRICAL RISE AND FALL OF CHEST. PATIENT'S IV IS A 20G RFA; NO FLUIDS RUNNING AT THIS TIME (SALINE LOCK). PATIENT IS SLEEPING, LYING SUPINE. PATIENT HAS WOUND ON LEFT ANKLE THAT IS EDDIE. BED IS IN LOWEST POSITION, WHEELS LOCKED, CALL LIGHT IN PLACE. WILL CONTINUE TO OBSERVE PATIENT.
--- NOTE | 2022-11-04 19:31 | NUR ---
ENDORSE PATIENT IN STABLE CONDITION TO PM SHIFT NURSE. STILL NEED COLLECTING URINE SINCE PATIENT HAS NOT URINATE AFTER ADMIT INTO FLOOR. PIV R. FOREARM SALINE LOCK, PATENT. DIALYSIS SCHEDULE TOMORROW. WOUND AT L. ANKLE OPEN TO AIR.
[2022-11-04 20:00] VITALS: BP 145/67
[2022-11-04] MEDS: ATORVASTATIN 20 MG TAB PO SCH (21:47)
--- NOTE | 2022-11-05 | NUR ---
ADMINISTERED 2100 MEDICATIONS TO PATIENT. PATIENT TOLERATED WELL. OBTAINED PATIENT'S BS; BS WAS 269, ADMINISTERED 6 UNITS OF HUMALOG FOR COVERAGE. PATIENT REQUESTED HIS SLEEPING MEDICATION. CHECKED PATIENT'S CHART AND SAW AMBIEN WAS APPROPRIATE TO ADMINISTER. ADMINISTERED AMBIEN TO PATIENT AT 2209. PATIENT TOLERATED WELL. LOOKED IN ON PATIENT AT 2300, PATIENT WAS SLEEPING. BREATHING WAS NORMAL WITH SYMMETRICAL RISE AND FALL OF CHEST. WILL CONTINUE TO OBSERVE PATIENT.
[2022-11-05] MEDS ORDERED: cefTRIAXone 1,000 MG VIAL ONE (01:57)
[2022-11-05 04:00] VITALS: BP 138/70
--- NOTE | 2022-11-05 04:00 | NUR ---
MD ORDERED IVPB ANTIBIOTIC. SET UP IV PUMP AND STARTED PATIENT'S IVPB. PATIENT WAS SLEEPING IN ROOM, LYING SUPINE. WOKE PATIENT UP AND INFORMED HIM THAT I NEED TO HOOK HIM UP TO THE IV. PATIENT WAS COOPERATIVE. IV WAS STARTED SUCCESSFULLY WITHOUT ANY ISSUES. WILL CONTINUE TO OBSERVE PATIENT.
[2022-11-05] MEDS: BLOOD GLUCOSE MONITORING 1 DEV DEV FS SCH ×4 (07:05→20:11)
[2022-11-05] MEDS: INSULIN LISPRO SLIDING SCALE 100 UNITS/ML VIAL SUBQ PRN ×3 (07:06→20:19)
[2022-11-05 07:11] LABS: BASOPHILS # (AUTO) 0.1 K/uL (0.00-0.22); BASOPHILS % (AUTO) 2.4 % (0.0-2.0); EOSINOPHILS # (AUTO) 1.3 K/uL (0-0.4); EOSINOPHILS % (AUTO) 21.8 % (0.0-4.0); HEMATOCRIT 35.4 % (36-52); HEMOGLOBIN 11.5 g/dL (12.0-18.0); LYMPHOCYTES # (AUTO) 1.2 K/uL (2.0-11.5); LYMPHOCYTES % (AUTO) 20.2 % (20.5-51.1); MEAN CORPUSCULAR HEMOGLOBIN 30 pg (27-31); MEAN CORPUSCULAR HGB CONC 33 g/dL (33-37); MEAN CORPUSCULAR VOLUME 91.1 fL (80-94); MONOCYTES # (AUTO) 0.5 K/uL (0.8-1.0); MONOCYTES % (AUTO) 7.6 % (1.7-9.3); NEUTROPHILS # (AUTO) 2.9 K/uL (1.8-7.7); PLATELET COUNT (AUTO) 378 K/uL (140-450); RED BLOOD CELL COUNT(AUTO) 3.88 MIL/uL (4.20-6.10); RED CELL DISTRIBUTION WIDTH 17.7 % (11.6-13.7); WHITE BLOOD COUNT (AUTO) 6.1 K/uL (4.8-10.8)
--- NOTE | 2022-11-05 07:30 | NUR ---
ENDORSED TO DAY SHIFT NURSE ISABELLE FOR CONTINUITY OF CARE. PATIENT IS STABLE.
[2022-11-05 07:35] LABS: MAGNESIUM 1.9 mg/dL (1.8-2.4); PHOSPHORUS 7.4 mg/dL (2.5-4.9)
--- NOTE | 2022-11-05 07:35 | NUR ---
RECEIVED REPORT FROM NIGHTSHIFT NURSE. PT A/O X 4. DENIES PAIN. NO SOB NOTED. RFA #20. LAV SHUNT. NEEDS ALL MET AT THIS TIME. ALL SAFETY MEASURES IN PLACE.
[2022-11-05 07:40] LABS: ANION GAP 16.6 (8-16); CARBON DIOXIDE 32.5 mmol/L (21-32); POTASSIUM 4.1 mmol/L (3.5-5.1)
[2022-11-05 08:07] LABS: T4 (THYROXINE) 7.5 ug/dL (4.5-12.0)
[2022-11-05 08:22] LABS: CREATININE 6.9 mg/dL (0.6-1.3)
--- NOTE | 2022-11-05 08:30 | NUR ---
DR. CHANDLER AT BEDSIDE EXPLAINING PROCEDURE TO PT AND PT VERBALIZED UNDERSTANDING. ORDER TO KEEP NPO FOR POSSIBLE PROCEDURE TODAY AFTER HEMODIALYSIS. CONSENT SIGNED AT BEDSIDE. NEEDS ALL MET AT THIS TIME. ALL SAFETY MEASURES IN PLACE.
[2022-11-05] MEDS: INSULIN LANTUS 100 UNITS/ML 10 ML VIAL SUBQ SCH (09:00)
[2022-11-05] MEDS ORDERED: NIFEDIPINE 60 MG PO SCH (09:00)
[2022-11-05] MEDS: FERROUS SULFATE 325 MG TABEC PO SCH (09:44)
[2022-11-05] MEDS: ASPIRIN 81 MG TAB.CHEW PO SCH (09:44)
[2022-11-05] MEDS: GABAPENTIN 300 MG CAP PO SCH (09:45)
[2022-11-05] MEDS: NIFEdipine 60 MG TABER PO SCH (09:45)
[2022-11-05] MEDS: PANTOPRAZOLE 40 MG TABEC PO SCH (09:45)
[2022-11-05] MEDS: levETIRAcetam 100 MG/ML ORASYR PO SCH ×2 (09:46→20:19)
--- NOTE | 2022-11-05 10:00 | NUR ---
ALL SCHEDULED MEDS GIVEN. LANTUS HELD. PT NPO WITH BG = 149. HYGIENIC SUPPLIES AND TOWELS PROVIDED TO PT. EXPLAINED TO PT THAT WILL FOLLOW UP WITH DIALYSIS NURSE AGAIN. ALL NEEDS MET. ALL SAFETY MEASURES IN PLACE.
[2022-11-05] MEDS: SEVELAMER CARBONATE 800 MG TAB PO SCH ×2 (11:35→17:19)
--- NOTE | 2022-11-05 12:45 | NUR ---
PT OFF UNIT TO OR.
[2022-11-05] MEDS ORDERED: SEVOFLURANE 250 ML BTL INH ONE ×2 (15:00)
[2022-11-05] MEDS ORDERED: PROPOFOL 200 MG/20 ML VIAL IV ONE ×3 (15:00→15:15)
[2022-11-05] MEDS ORDERED: fentaNYL citrate 0.05 MG/ML - 50mL vial IV ONE ×2 (15:00)
--- NOTE | 2022-11-05 15:01 | NUR ---
DC PLANNING LATE ENTRY, PT SEEN 11/04 AT 1430 SW MET WITH PT AT BEDSIDE TO COMPLETE ASSESSMENT. PT REPORTS RESIDING IN A SINGLE STORY HOME WITH HIS MOTHER, AT THE ADDRESS LISTED ON FILE. PT IDENTIFIED OSVALDO GIORDANO, MOTHER, AND CARLY MORROW, SISTER, EMERGENCY CONTACTS. PT DENIED AD IN PLACE AND DECLINED AD OFFERED BY SW. PT REPORTS MEETING WITH PCP, DR.NICOLAS MACKAY, NEEDED, LAST VISIT; 1 MONTH AGO. PT REPORTS MEDIATION COMPLIANCE AND REPORTS RECEIVING MEDICATION FROM [facility], WHEN NEEDED. PT REPORTS BEING AMBULATORY WITH ASSISTANCE; FWW AND WC. PT REPORTS COMPLETING ADL'S INDEPENDENTLY. PT REPORTS HX OF DIABETES THAT IS WELL MANAGED. [facility] 10[facility]30AM, TRANSPORTATION IS REPORTED TO BE ARRANGED BY INSURANCE. PT REPORTS MEETING WITH NEPH, DR PATRICIA KEE EVERY MONTH. PT DENIES HX OF SNF,AND HH. PT REPORTS ADEQUATE FOOD IN THE HOME AND REPORTS THAT HE RECEIVES SSDI OF ROUGHLY 1400. PT REPORTS DC PLAN IS TO RETURN HOME WITH SISTER PROVIDING TRANSPORTATION, WHEN MEDICALLY STABLE. SW INQUIRED ON RESOURCES NEEDED PT DECLINED. Addendum: 11/05/22 at 1502 by Nan MACKAY Amended: Links added.
[2022-11-05] MEDS ORDERED: fentaNYL citrate 0.05 MG/ML VIAL ONE (15:15)
[2022-11-05] MEDS ORDERED: HYDROGEN PEROXIDE 3% 240 ML BTL TP ONE (15:21)
[2022-11-05] MEDS ORDERED: BUPIVACAINE-MPF 0.5% 30 ML VIAL INJ ONE (15:29)
[2022-11-05] MEDS ORDERED: LIDOCAINE 2% 1000 MG/50 ML VIAL INJ ONE (15:30)
[2022-11-05] MEDS ORDERED: ePHEDrine 50 MG/ML VIAL ONE (15:47)
[2022-11-05] MEDS ORDERED: BLOOD GLUCOSE MONITORING 1 DEV DEV FS ONE (15:55)
[2022-11-05 16:00] VITALS: BP 119/70
[2022-11-05] MEDS ORDERED: BLOOD GLUCOSE MONITORING 1 DEV DEV FS SCH (16:00)
[2022-11-05] MEDS ORDERED: diphenhydrAMINE 50 MG/ML VIAL IVP PRN (16:00)
[2022-11-05] MEDS ORDERED: NACL 0.9% 1,000 ML IV SCH (16:00)
[2022-11-05] MEDS ORDERED: ONDANSETRON 4 MG/2 ML VIAL IVP PRN (16:00)
--- NOTE | 2022-11-05 16:32 | NUR ---
PT BACK FROM I & D AND BIOPSY. SNACKS PROVIDED FOR PT.
--- NOTE | 2022-11-05 16:36 | NUR ---
OR NURSE LARSON STATES ACCUCHECKS COMPLETED AND INSULIN COVERAGE GIVEN.
[2022-11-05] MEDS ORDERED: VANCOMYCIN 1,000 MG in DEXTROSE 5% 250 ML IV SCH (17:00)
--- NOTE | 2022-11-05 17:28 | NUR ---
CONTACTED DR. THOMPSON REGARDING ORDER CLARIFICATION OF IVF AND EXPLAINED PT ANURIC, VSS AND TOLERATING P.O. FLUIDS. DR. THOMPSON ORDER TO DC IVF. ORDERS INPUTTED.
--- NOTE | 2022-11-05 18:30 | NUR ---
UPDATED PT THAT DIALYSIS NURSE IS ON THE WAY. PT VERBALIZED UNDERSTANDING. DINNER AT BEDSIDE. DENIES PAIN. IN NO ACUTE DISTRESS. ALL NEEDS MET AT THIS TIME. ALL SAFETY MEASURES IN PLACE.
--- NOTE | 2022-11-05 19:21 | NUR ---
BEDSIDE REPORT GIVEN TO NIGHTSHIFT NURSEBERNARDA FOR CONTINUITY OF CARE.
--- NOTE | 2022-11-05 19:30 | NUR ---
RECEIVED REPORT FROM DAY SHIFT NURSE ISABELLE FOR CONTINUITY OF CARE. PATIENT IS A&O X3-4. PATIENT IS ON ROOM AIR; BREATHING IS NORMAL WITH SYMMETRICAL RISE AND FALL OF CHEST. PATIENT'S IV IS A 20G RFA; RUNNING NS 5ML TKO. PATIENT IS RESTING, LYING SUPINE. PATIENT HAD SURGERY EARLIER TODAY ON OPEN WOUND THAT WAS LOCATED ON LEFT ANKLE. WOUND IS BANDAGED, SURGEON WILL DO FIRST DRESSING CHANGE. BED IS IN LOWEST POSITION, WHEELS LOCKED, CALL LIGHT IN PLACE. WILL CONTINUE TO OBSERVE PATIENT.
[2022-11-05 20:00] VITALS: BP 145/63
[2022-11-05] MEDS: ATORVASTATIN 20 MG TAB PO SCH (20:19)
--- NOTE | 2022-11-06 00:30 | NUR ---
ADMINISTERED 2100 MEDICATIONS TO PATIENT. OBTAINED BS; BS WAS 317, 8 UNITS HUMALOG WAS GIVEN FOR COVERAGE. WAS INFORMED BY DIALYSIS NURSE JAMEY AT 2300 THAT PATIENT IS REFUSING DIALYSIS TONIGHT AND IS REQUESTING TO HAVE IT DONE TOMORROW; NURSE JAMEY STATED THAT SHE INFORMED DR. HOLLIE KEE THAT THE PATIENT REFUSED AND WILL HAVE IT TOMORROW. NURSE JAMEY SAID NO NEW ORDERS NEED TO BE PUT INTO PLACE FOR TOMORROW SINCE DIALYSIS WASN'T DONE TODAY AND SHE WOULD HOLD ON TO THE PAPERS THAT WERE GIVEN TO HER AND PLACE THEM IN THE PATIENT'S DIALYSIS FOLDER FOR THE DIALYSIS NURSE IN THE MORNING. CALLED PHARMACY TO INQUIRE ABOUT VANCO THAT WAS SCHEDULED TO BE GIVEN AFTER HEMODIALYSIS; PHARMACIST RAQUEL SAID TO HOLD VANCO AND ENDORSE TO DAY SHIFT NURSE SINCE PATIENT DID NOT RECEIVE DIALYSIS. IF PATIENT DOES NOT RECEIVE DIALYSIS TOMORROW; CONTACT PHARMACY ABOUT GIVING VANCO. WILL CONTINUE TO OBSERVE PATIENT.
[2022-11-06] MEDS: ZOLPIDEM 5 MG TAB PO PRN ×2 (01:14→21:27)
--- NOTE | 2022-11-06 04:00 | NUR ---
PATIENT REQUESTED AN AMBIEN FOR SLEEP. AMBIEN WAS ADMINISTERED AT 0114 SUCCESSFULLY WITH NO DIFFICULTY WITH SWALLOWING. PATIENT WENT TO SLEEP SHORTLY AFTER ADMINISTRATION. PATIENT'S BREATHING WAS NORMAL WITH SYMMETRICAL RISE AND FALL OF CHEST. WILL CONTINUE TO OBSERVE PATIENT.
[2022-11-06] MEDS: BLOOD GLUCOSE MONITORING 1 DEV DEV FS SCH ×4 (06:38→21:30)
[2022-11-06] MEDS: INSULIN LISPRO SLIDING SCALE 100 UNITS/ML VIAL SUBQ PRN ×4 (06:40→21:36)
[2022-11-06 06:58] LABS: BASOPHILS # (AUTO) 0.1 K/uL (0.00-0.22); BASOPHILS % (AUTO) 2.1 % (0.0-2.0); EOSINOPHILS # (AUTO) 1.2 K/uL (0-0.4); EOSINOPHILS % (AUTO) 20.2 % (0.0-4.0); HEMATOCRIT 35.9 % (36-52); HEMOGLOBIN 11.8 g/dL (12.0-18.0); LYMPHOCYTES # (AUTO) 0.9 K/uL (2.0-11.5); LYMPHOCYTES % (AUTO) 14.7 % (20.5-51.1); MEAN CORPUSCULAR HEMOGLOBIN 30 pg (27-31); MEAN CORPUSCULAR HGB CONC 33 g/dL (33-37); MEAN CORPUSCULAR VOLUME 90.3 fL (80-94); MONOCYTES # (AUTO) 0.3 K/uL (0.8-1.0); MONOCYTES % (AUTO) 5.7 % (1.7-9.3); NEUTROPHILS # (AUTO) 3.5 K/uL (1.8-7.7); NEUTROPHILS % (AUTO) 57.3 % (42.2-75.2); PLATELET COUNT (AUTO) 393 K/uL (140-450); RED BLOOD CELL COUNT(AUTO) 3.97 MIL/uL (4.20-6.10); RED CELL DISTRIBUTION WIDTH 17.6 % (11.6-13.7); WHITE BLOOD COUNT (AUTO) 6.2 K/uL (4.8-10.8)
[2022-11-06 07:28] LABS: ANION GAP 18.9 (8-16); CARBON DIOXIDE 28.5 mmol/L (21-32); POTASSIUM 4.4 mmol/L (3.5-5.1)
[2022-11-06 07:31] LABS: CREATININE 8.1 mg/dL (0.6-1.3)
--- NOTE | 2022-11-06 07:38 | NUR ---
RECEIVED CRITICAL LAB AT 0732. BUN 55, CR 8.1. MESSAGED MD THOMPSON; MESSAGED BACK "OK".
[2022-11-06 08:00] VITALS: BP 149/83
[2022-11-06] MEDS: SEVELAMER CARBONATE 800 MG TAB PO SCH ×3 (08:08→17:02)
[2022-11-06] MEDS: FERROUS SULFATE 325 MG TABEC PO SCH (08:08)
[2022-11-06] MEDS: levETIRAcetam 100 MG/ML ORASYR PO SCH ×2 (08:09→21:26)
[2022-11-06] MEDS: NIFEdipine 60 MG TABER PO SCH (08:09)
[2022-11-06] MEDS: ASPIRIN 81 MG TAB.CHEW PO SCH (08:09)
[2022-11-06] MEDS: PANTOPRAZOLE 40 MG TABEC PO SCH (08:10)
[2022-11-06] MEDS: GABAPENTIN 300 MG CAP PO SCH (08:10)
[2022-11-06] MEDS: INSULIN LANTUS 100 UNITS/ML 10 ML VIAL SUBQ SCH (08:14)
--- NOTE | 2022-11-06 09:35 | NUR ---
WOUND CONSULT NOT DONE. PT SEEN AND TREATED BY IN HOUSE PODIATRY TEAM WITH DR. CHANDLER S/P LEFT ANKLE I & D, WOUND DEBRIDEMENT, BONE BIOPSY WERE DONE. DR. CHANDLER CONTACT THIS MORNING REQUEST WOUND CARE TREATMENT ORDER, NO RETURN CALL YET. ABOVE INFORMATION DISCUSSED WITH PRIMARY RN BERNARDA. NO DRESSING CHANGE YET SURGICAL WOUND LESS THAN 24 HOURS. PT. DRESSING TO LEFT ANKLE DCI. POC DISCUSSED WITH PT. PT. VERBALIZES UNDERSTANDING. Addendum: 11/06/22 at 1338 by Maribel Lomas RN (Grace) DR. CHANDLER RESPONSE "WAIT FOR MY VISIT"
--- NOTE | 2022-11-06 10:24 | NUR ---
ENDORSED CARE OF PATIENT TO DAY SHIFT NURSE FAREED FOR CONTINUITY OF CARE. PATIENT IS STABLE.
--- NOTE | 2022-11-06 15:56 | NUR ---
11/06/22 RD INITIAL ASSESSMENT COMPLETED PLEASE REFER TO NUTRITION ASSESSMENT UNDER CARE ACTIVITY FOR ESTIMATED NUTRITIONAL NEEDS. 1. RECOMMEND ADDING CCHO 60 GM TO RENAL DIET TOLERATED 2. RECOMMEND NEPRO 1XDAY TO HELP INCREASE PO INTAKE (PROVIDES 425 KCAL AND 19 GM PROTEIN DAILY) 3. MONITOR NUTRITION RELATED LAB VALUES 4. RD TO FOLLOW-UP 7 DAYS, LOW RISK REVIEWED BY RONI CONCEPCION RD
[2022-11-06] MEDS: HYDROcodone/APAP 7.5/325 MG 1 TAB PO PRN ×2 (17:02→21:41)
[2022-11-06 17:18] VITALS: BP 125/74
[2022-11-06] MEDS ORDERED: VANCOMYCIN 1,000 MG in DEXTROSE 5% 250 ML IV SCH (18:00)
[2022-11-06 20:00] VITALS: BP 136/70
--- NOTE | 2022-11-06 20:00 | NUR ---
pt is awake and alert x 4. he is ambulatory. cooperative. room air. no respiratory distress noted.
--- NOTE | 2022-11-06 21:00 | NUR ---
pt asking for pain medication, he said that he has 9/10 pain on the left ankle and also asking sleeping pill.
[2022-11-06] MEDS: ATORVASTATIN 20 MG TAB PO SCH (21:27)
[2022-11-07] VITALS: BP 111/66
--- NOTE | 2022-11-07 00:45 | NUR ---
pharmacy called to verified the new ancef order from Dr. marley. I called and texted the DRAmaury waiting to get a call back from the
[2022-11-07] MEDS ORDERED: ceFAZolin 1,000 MG VIAL ONE (01:58)
--- NOTE | 2022-11-07 02:00 | NUR ---
Dr Called and said the ordered for Ancef is correct. He needs q24h antibiotic anchef since pt is on dialysis.
[2022-11-07 07:23] LABS: ANION GAP 15.3 (8-16); BASOPHILS # (AUTO) 0.1 K/uL (0.00-0.22); BASOPHILS % (AUTO) 2.6 % (0.0-2.0); CARBON DIOXIDE 27.3 mmol/L (21-32); EOSINOPHILS # (AUTO) 1.2 K/uL (0-0.4); HEMATOCRIT 34.2 % (36-52); HEMOGLOBIN 11.1 g/dL (12.0-18.0); LYMPHOCYTES # (AUTO) 1.1 K/uL (2.0-11.5); MEAN CORPUSCULAR HEMOGLOBIN 30 pg (27-31); MEAN CORPUSCULAR HGB CONC 32 g/dL (33-37); MEAN CORPUSCULAR VOLUME 90.9 fL (80-94); MONOCYTES # (AUTO) 0.4 K/uL (0.8-1.0); MONOCYTES % (AUTO) 6.6 % (1.7-9.3); NEUTROPHILS # (AUTO) 2.7 K/uL (1.8-7.7); NEUTROPHILS % (AUTO) 49.1 % (42.2-75.2); PLATELET COUNT (AUTO) 354 K/uL (140-450); POTASSIUM 4.6 mmol/L (3.5-5.1); RED BLOOD CELL COUNT(AUTO) 3.76 MIL/uL (4.20-6.10); RED CELL DISTRIBUTION WIDTH 17.5 % (11.6-13.7); WHITE BLOOD COUNT (AUTO) 5.6 K/uL (4.8-10.8)
[2022-11-07 07:43] LABS: CREATININE 7.3 mg/dL (0.6-1.3)
[2022-11-07] MEDS: BLOOD GLUCOSE MONITORING 1 DEV DEV FS SCH ×4 (07:45→21:08)
[2022-11-07] MEDS: INSULIN LISPRO SLIDING SCALE 100 UNITS/ML VIAL SUBQ PRN ×4 (07:47→21:13)
[2022-11-07 08:00] VITALS: BP 147/70
[2022-11-07 08:40] LABS: EOSINOPHILS % (AUTO) 21.4 % (0.0-4.0); LYMPHOCYTES % (AUTO) 20.3 % (20.5-51.1)
[2022-11-07] MEDS: NIFEdipine 60 MG TABER PO SCH (09:00)
[2022-11-07] MEDS: PANTOPRAZOLE 40 MG TABEC PO SCH (09:07)
[2022-11-07] MEDS: SEVELAMER CARBONATE 800 MG TAB PO SCH ×3 (09:07→17:23)
[2022-11-07] MEDS: GABAPENTIN 300 MG CAP PO SCH (09:08)
[2022-11-07] MEDS: ASPIRIN 81 MG TAB.CHEW PO SCH (09:08)
[2022-11-07] MEDS: FERROUS SULFATE 325 MG TABEC PO SCH (09:08)
[2022-11-07] MEDS: levETIRAcetam 100 MG/ML ORASYR PO SCH ×2 (09:09→21:09)
[2022-11-07] MEDS: INSULIN LANTUS 100 UNITS/ML 10 ML VIAL SUBQ SCH (10:13)
--- NOTE | 2022-11-07 12:09 | NUR ---
PT GIVEN INSULIN PER SLIDING SCALE AND DUE ORAL MEDS. PT IN BED. PT STATES HE IS TIRED AND NEEDS TO GET SOME REST. INFORMED PT DIALYSIS NURSE SAID HE WILL BE RECEIVING DIALYSIS FROM 12-3PM. PT VERBALIZED UNDERSTANDING.
--- NOTE | 2022-11-07 12:44 | NUR ---
PT STARTING DIALYSIS
--- NOTE | 2022-11-07 15:25 | NUR ---
PT FINISHED DIALYSIS , 2L OUT
[2022-11-07 16:00] VITALS: BP 159/79
--- NOTE | 2022-11-07 16:04 | NUR ---
ECG TECH AT BEDSIDE.
--- NOTE | 2022-11-07 16:22 | NUR ---
PT HAS PENDING URINALYSIS COLLECTION. HOWEVER PT IS ANURIC. INFORMED DR RIVAS OF ORDER OF URINE COLLECTION ON THE 3RD. PER DR RIVAS CANCEL ORDER.
--- NOTE | 2022-11-07 17:34 | NUR ---
ADMINISTERED SCHEDULED ORAL MED AND INSULIN PER SLIDING SCALE. PT TOLERATING WELL.
--- NOTE | 2022-11-07 19:26 | NUR ---
ENDORSED PT TO SULFURIC ACID PLANT OPERATOR NURSE FOR CONTINUITY OF CARE. PT IN STABLE CONDITION.
--- NOTE | 2022-11-07 19:58 | NUR ---
pt went and cleaned himself in the restroom. he is alert and oriented x 4. no respiratory distress noted. pt is ambulatory and tolerated well.
[2022-11-07 20:00] VITALS: BP 163/67
[2022-11-07] MEDS: ATORVASTATIN 20 MG TAB PO SCH (21:10)
[2022-11-07] MEDS: ZOLPIDEM 5 MG TAB PO PRN (21:11)
--- NOTE | 2022-11-07 22:00 | NUR ---
pt resting in bed and sleeping. bed lowered and fall precaution
[2022-11-08 04:00] VITALS: BP 160/69
--- NOTE | 2022-11-08 06:30 | NUR ---
blood sugar 116 no coverage
[2022-11-08] MEDS: BLOOD GLUCOSE MONITORING 1 DEV DEV FS SCH ×4 (06:33→20:34)
--- NOTE | 2022-11-08 07:36 | NUR ---
RECEIVED PT FROM SCUBA DIVER NURSE FOR CONTINUITY OF CARE. PT IN BED WITH EYES CLOSED. AROUSABLE TO VOICE. ABLE TO VERBALIZE NEEDS. RESPIRATIONS EVEN AND UNLABORED. NO DISTRESS NOTED. CALL LIGHT WITHIN REACH. ALL SAFETY PRECAUTIONS IN PLACE.
[2022-11-08 07:57] LABS: BASOPHILS # (AUTO) 0.2 K/uL (0.00-0.22); BASOPHILS % (AUTO) 2.3 % (0.0-2.0); EOSINOPHILS # (AUTO) 1.4 K/uL (0-0.4); EOSINOPHILS % (AUTO) 21.2 % (0.0-4.0); HEMATOCRIT 35.3 % (36-52); HEMOGLOBIN 11.5 g/dL (12.0-18.0); LYMPHOCYTES # (AUTO) 1.2 K/uL (2.0-11.5); LYMPHOCYTES % (AUTO) 17.7 % (20.5-51.1); MEAN CORPUSCULAR HEMOGLOBIN 30 pg (27-31); MEAN CORPUSCULAR HGB CONC 33 g/dL (33-37); MEAN CORPUSCULAR VOLUME 91.5 fL (80-94); MONOCYTES # (AUTO) 0.5 K/uL (0.8-1.0); MONOCYTES % (AUTO) 7.2 % (1.7-9.3); NEUTROPHILS # (AUTO) 3.5 K/uL (1.8-7.7); NEUTROPHILS % (AUTO) 51.6 % (42.2-75.2); PLATELET COUNT (AUTO) 351 K/uL (140-450); RED BLOOD CELL COUNT(AUTO) 3.86 MIL/uL (4.20-6.10); RED CELL DISTRIBUTION WIDTH 17.5 % (11.6-13.7); WHITE BLOOD COUNT (AUTO) 6.7 K/uL (4.8-10.8)
[2022-11-08 08:00] VITALS: BP 167/87
[2022-11-08 08:19] LABS: ANION GAP 18.3 (8-16); CARBON DIOXIDE 25.3 mmol/L (21-32); POTASSIUM 4.6 mmol/L (3.5-5.1)
[2022-11-08 08:22] LABS: CREATININE 6.6 mg/dL (0.6-1.3)
--- NOTE | 2022-11-08 08:23 | NUR ---
LAB CALLED WITH CRITICAL CREATININE 6.6. INFORMED DR RIVAS.
[2022-11-08] MEDS ORDERED: DESFLURANE 240 ML BTL INH ONE (08:40)
[2022-11-08] MEDS: INSULIN LANTUS 100 UNITS/ML 10 ML VIAL SUBQ SCH (09:12)
[2022-11-08] MEDS: FERROUS SULFATE 325 MG TABEC PO SCH (09:14)
[2022-11-08] MEDS: ASPIRIN 81 MG TAB.CHEW PO SCH (09:15)
[2022-11-08] MEDS: GABAPENTIN 300 MG CAP PO SCH (09:15)
[2022-11-08] MEDS: PANTOPRAZOLE 40 MG TABEC PO SCH (09:15)
[2022-11-08] MEDS: SEVELAMER CARBONATE 800 MG TAB PO SCH ×3 (09:15→16:10)
[2022-11-08] MEDS: NIFEdipine 60 MG TABER PO SCH (09:16)
[2022-11-08] MEDS: levETIRAcetam 100 MG/ML ORASYR PO SCH ×2 (09:17→20:26)
--- NOTE | 2022-11-08 09:25 | NUR ---
ALL SCHEDULED MEDS GIVEN. PT TOLERATING WELL.
[2022-11-08] MEDS: INSULIN LISPRO SLIDING SCALE 100 UNITS/ML VIAL SUBQ PRN ×3 (11:19→20:34)
--- NOTE | 2022-11-08 11:30 | NUR ---
PT INSULIN GIVEN PER SLIDING SCALE. AND ORAL MED. TOLERATING WELL. PT SITTING DOWN IN BED.
[2022-11-08 16:00] VITALS: BP 122/60
--- NOTE | 2022-11-08 16:25 | NUR ---
ADMINISTERED SCHEDULED MED AND INSULIN PER SLIDING SCALE. PT FAMILY AT BEDSIDE.
--- NOTE | 2022-11-08 17:55 | NUR ---
MAKING ROUNDS. PT IN BED WATCHING TV. PT ASKING WHAT TIME IS DINNER. LET HIM KNOW DINNER WILL BE HERE SOON.
[2022-11-08] MEDS ORDERED: VANCOMYCIN PER PHARMACY MC PRN (18:30)
[2022-11-08] MEDS ORDERED: VANCOMYCIN 1GM/DEXT 5% PREMIX 200 ML IV SCH (18:50)
--- NOTE | 2022-11-08 19:45 | NUR ---
ENDORSED PT TO KITCHEN CLEANER NURSE FOR CONTINUITY OF CARE. PT IN STABLE CONDITION.
--- NOTE | 2022-11-08 19:46 | NUR ---
RECEIVED PT FROM AM NURSE FOR CONTINUITY OF CARE. PT IS STABLE
[2022-11-08 20:00] VITALS: BP 136/79
[2022-11-08] MEDS: HYDROcodone/APAP 7.5/325 MG 1 TAB PO PRN (20:16)
[2022-11-08] MEDS: ATORVASTATIN 20 MG TAB PO SCH (20:27)
--- NOTE | 2022-11-08 21:00 | NUR ---
DR CHANDLER CAME TO CHANGE THE WOUND DRESSING ON PATIENT
[2022-11-09] MEDS ORDERED: ceFAZolin 1,000 MG VIAL ONE (01:48)
--- NOTE | 2022-11-09 03:00 | NUR ---
PATIENT ASLEEP, ALL SAFETY MEASURES IN PLACE, NO DISTRESS NOTED
[2022-11-09 06:40] LABS: BASOPHILS # (AUTO) 0.2 K/uL (0.00-0.22); BASOPHILS % (AUTO) 2.4 % (0.0-2.0); EOSINOPHILS # (AUTO) 1.5 K/uL (0-0.4); EOSINOPHILS % (AUTO) 21.6 % (0.0-4.0); HEMATOCRIT 32.8 % (36-52); HEMOGLOBIN 10.7 g/dL (12.0-18.0); LYMPHOCYTES # (AUTO) 1.3 K/uL (2.0-11.5); LYMPHOCYTES % (AUTO) 19.6 % (20.5-51.1); MEAN CORPUSCULAR HEMOGLOBIN 30 pg (27-31); MEAN CORPUSCULAR HGB CONC 33 g/dL (33-37); MEAN CORPUSCULAR VOLUME 90.8 fL (80-94); MONOCYTES # (AUTO) 0.4 K/uL (0.8-1.0); MONOCYTES % (AUTO) 5.2 % (1.7-9.3); NEUTROPHILS # (AUTO) 3.5 K/uL (1.8-7.7); NEUTROPHILS % (AUTO) 51.2 % (42.2-75.2); PLATELET COUNT (AUTO) 370 K/uL (140-450); RED BLOOD CELL COUNT(AUTO) 3.61 MIL/uL (4.20-6.10); RED CELL DISTRIBUTION WIDTH 17.6 % (11.6-13.7); WHITE BLOOD COUNT (AUTO) 6.9 K/uL (4.8-10.8)
[2022-11-09] MEDS: INSULIN LISPRO SLIDING SCALE 100 UNITS/ML VIAL SUBQ PRN ×4 (06:51→22:28)
[2022-11-09] MEDS: BLOOD GLUCOSE MONITORING 1 DEV DEV FS SCH ×4 (06:54→21:00)
[2022-11-09] MEDS ORDERED: VANCOMYCIN HCL 1.25 GM in DEXTROSE 5% 250 ML IV SCH (07:08)
[2022-11-09 07:23] LABS: CARBON DIOXIDE 25.9 mmol/L (21-32); POTASSIUM 4.9 mmol/L (3.5-5.1)
[2022-11-09] MEDS: FERROUS SULFATE 325 MG TABEC PO SCH (08:00)
[2022-11-09] MEDS: SEVELAMER CARBONATE 800 MG TAB PO SCH ×3 (08:00→16:28)
--- NOTE | 2022-11-09 08:00 | NUR ---
Patient off the unit to the OR. Fermin Partida RN.
[2022-11-09 08:09] LABS: CREATININE 8.4 mg/dL (0.6-1.3)
[2022-11-09] MEDS ORDERED: BUPIVACAINE-MPF 0.25% 30 ML VIAL INJ ONE (08:29)
[2022-11-09] MEDS ORDERED: BUPIVACAINE-MPF 0.5% 30 ML VIAL INJ ONE (08:29)
[2022-11-09] MEDS ORDERED: LIDOCAINE 2% 1000 MG/50 ML VIAL INJ ONE (08:29)
[2022-11-09] MEDS ORDERED: fentaNYL citrate 0.05 MG/ML VIAL ONE (08:53)
[2022-11-09] MEDS: GABAPENTIN 300 MG CAP PO SCH (09:00)
[2022-11-09] MEDS: levETIRAcetam 100 MG/ML ORASYR PO SCH ×2 (09:00→20:41)
[2022-11-09] MEDS: ASPIRIN 81 MG TAB.CHEW PO SCH (09:00)
[2022-11-09] MEDS: INSULIN LANTUS 100 UNITS/ML 10 ML VIAL SUBQ SCH (09:00)
[2022-11-09] MEDS: NIFEdipine 60 MG TABER PO SCH (09:00)
[2022-11-09] MEDS: PANTOPRAZOLE 40 MG TABEC PO SCH (09:00)
[2022-11-09] MEDS ORDERED: ONDANSETRON 4 MG/2 ML VIAL ONE (09:06)
[2022-11-09] MEDS ORDERED: PROPOFOL 200 MG/20 ML VIAL IV ONE (09:06)
[2022-11-09] MEDS ORDERED: LINEZOLID 600MG PREMIX 300 ML IV SCH (09:10)
[2022-11-09] MEDS ORDERED: AMPICILLIN 1,000 MG in NACL 0.9% 50 ML IV SCH (09:10)
[2022-11-09] MEDS ORDERED: HYDROmorphone 1 MG/ML AMP IVP PRN (10:35)
[2022-11-09] MEDS ORDERED: ACETAMINOPHEN 100 ML IV PRN (10:35)
[2022-11-09] MEDS ORDERED: ONDANSETRON 4 MG/2 ML VIAL IVP PRN (10:35)
--- NOTE | 2022-11-09 11:34 | NUR ---
PATIENT RETURNED FROM OR. A/O X4. VSS. AFEBRILE. RESPIRATIONS EVEN AND UNLABORED. DRESSING TO LEFT ANKLE CLEAN DRY AND INTACT. DENIES PAIN AT THIS TIME. BLOOD GLUCOSE 188. NO ACUTE DISTRESS NOTED AT THIS TIME. WILL CONTINUE TO MONITOR FOR SAFETY. Fermin HUGGINS RN.
[2022-11-09 12:00] VITALS: BP 157/77
[2022-11-09 16:00] VITALS: BP 182/77
--- NOTE | 2022-11-09 19:18 | NUR ---
RECEIVED REPORT FROM DAY SHIFT NURSE JENA FOR CONTINUITY OF CARE. PT AWAKE IN BED, EYES CLOSED. RESPIRATIONS EVEN AND UNLABORED ON RA. NO DISTRESS NOTED. S/P LEFT ANKLE INSERTION OF ANTIBIOTIC BEEDS. LEFT ANKLE WRAPPED WITH BANDAGE. DIALYSIS SITE ON UPPER LEFT ARM. DIALYSIS SCHEDULE T/TH/SAT. WITH DIALYSIS SCHEDULED TOMORROW. CALL LIGHT WITHIN REACH. SAFETY PRECAUTIONS IN PLACE.
--- NOTE | 2022-11-09 19:30 | NUR ---
Patient's Plan of Care was discussed and reviewed with OLIVA LOPEZ
[2022-11-09 20:00] VITALS: BP 155/78
[2022-11-09] MEDS: ATORVASTATIN 20 MG TAB PO SCH (20:41)
--- NOTE | 2022-11-09 20:41 | NUR ---
ADMINISTERED DUE MEDS. PT TOLERATED WELL.
--- NOTE | 2022-11-09 21:17 | NUR ---
PT COMPLAINING OF NAUSEA AND VOMITING. PRN IV MED FOR VOMITING GIVEN BY JEREMY MENCHACA.
[2022-11-09] MEDS ORDERED: hydrALAZINE 20 MG/ML VIAL IVP PRN (21:50)
--- NOTE | 2022-11-09 21:55 | NUR ---
PER PT, HE FELT BETTER AFTER HE VOMITED. RE-CHECKED BP 155/78. ASYMPTOMATIC.
--- NOTE | 2022-11-09 22:24 | NUR ---
BLOOD SUGAR CHECK DONE. SLIDING SCALE INSULIN ADMINISTERED.
[2022-11-10 04:00] VITALS: BP 144/79
[2022-11-10] MEDS: INSULIN LISPRO SLIDING SCALE 100 UNITS/ML VIAL SUBQ PRN ×4 (06:30→21:09)
[2022-11-10] MEDS: BLOOD GLUCOSE MONITORING 1 DEV DEV FS SCH ×4 (06:30→21:08)
--- NOTE | 2022-11-10 06:33 | NUR ---
SLIDING SCALE INSULIN GIVEN FOR BS 201. PT WITH MEDICAL RECORDS TECH, COMPLIANT. NO DISTRESS NOTED. SAFETY PRECAUTIONS IN PLACE.
--- NOTE | 2022-11-10 07:10 | NUR ---
ENDORSED PT TO DAY SHIFT NURSE JENA FOR CONTINUITY OF CARE. ALL NEEDS MET THROUGHOUT SHIFT. PT IS STABLE.
[2022-11-10 07:37] LABS: BASOPHILS # (AUTO) 0.2 K/uL (0.00-0.22); BASOPHILS % (AUTO) 1.9 % (0.0-2.0); EOSINOPHILS # (AUTO) 1.1 K/uL (0-0.4); EOSINOPHILS % (AUTO) 12.9 % (0.0-4.0); HEMATOCRIT 30.8 % (36-52); HEMOGLOBIN 10.5 g/dL (12.0-18.0); LYMPHOCYTES # (AUTO) 0.8 K/uL (2.0-11.5); MEAN CORPUSCULAR HEMOGLOBIN 30 pg (27-31); MEAN CORPUSCULAR HGB CONC 34 g/dL (33-37); MEAN CORPUSCULAR VOLUME 88.1 fL (80-94); MONOCYTES # (AUTO) 0.5 K/uL (0.8-1.0); MONOCYTES % (AUTO) 6.4 % (1.7-9.3); NEUTROPHILS # (AUTO) 5.9 K/uL (1.8-7.7); NEUTROPHILS % (AUTO) 69.8 % (42.2-75.2); PLATELET COUNT (AUTO) 326 K/uL (140-450); RED CELL DISTRIBUTION WIDTH 17.6 % (11.6-13.7); WHITE BLOOD COUNT (AUTO) 8.4 K/uL (4.8-10.8)
[2022-11-10 07:37] LABS: ANION GAP 21.8 (8-16); CARBON DIOXIDE 22.1 mmol/L (21-32); POTASSIUM 5.9 mmol/L (3.5-5.1)
[2022-11-10 08:00] VITALS: BP 165/79
[2022-11-10 08:14] LABS: CREATININE 9.3 mg/dL (0.6-1.3)
[2022-11-10] MEDS: NIFEdipine 60 MG TABER PO SCH (08:58)
[2022-11-10] MEDS: SEVELAMER CARBONATE 800 MG TAB PO SCH ×3 (08:58→16:37)
[2022-11-10] MEDS: FERROUS SULFATE 325 MG TABEC PO SCH (08:58)
[2022-11-10] MEDS: ASPIRIN 81 MG TAB.CHEW PO SCH (08:59)
[2022-11-10] MEDS: PANTOPRAZOLE 40 MG TABEC PO SCH (08:59)
[2022-11-10] MEDS: GABAPENTIN 300 MG CAP PO SCH (08:59)
[2022-11-10] MEDS: levETIRAcetam 100 MG/ML ORASYR PO SCH ×2 (08:59→20:59)
[2022-11-10] MEDS: INSULIN LANTUS 100 UNITS/ML 10 ML VIAL SUBQ SCH (09:00)
--- NOTE | 2022-11-10 12:57 | NUR ---
DC PLANNING: PATIENT HAS A DC ORDER TO GO HOME WITH [facility] FOR IV ABX FAXED TO [facility] AND [facility]. AWAITING FOR MID LINE INSERTION AND RESPONSE FROM [facility]. CM TO FOLLOW Addendum: 11/10/22 at 1635 by Jody Scott RN DC PLANNING: [facility] WILL DELIVER THE MEDS TONIGHT AND WILL START THE VISIT TOMORROW [phone] ONE MID LINE INSERTED PATIENT CAN BE DISCHARGED HOME. NOTIFIED JENA BUSTAMANTE CM TO FOLLOW
[2022-11-10] MEDS ORDERED: Vancomycin Per Pharmacy MC (14:38)
[2022-11-10] MEDS ORDERED: NIFE60TA39 PO (14:38)
[2022-11-10] MEDS ORDERED: SEVE800T6 PO (14:38)
[2022-11-10] MEDS ORDERED: GABA300C1 PO (14:38)
[2022-11-10] MEDS ORDERED: CEFA2PLA5 IV (14:38)
[2022-11-10 16:00] VITALS: BP 117/50
[2022-11-10 18:03] VITALS: BP 117/50
--- NOTE | 2022-11-10 19:30 | NUR ---
RECEIVED PT FROM MORNING SHIFT NURSE. PT IS AOX4, BEDREST, NEEDS TO VERBALIZE NEEDS AND ABLE TO FOLLOW COMMANDS. PT IS ON ROOM ARE AND RENAL DIET. PT HAS IV ON RIGHT HAND GAUGE 20 SALINE LOCK. PT HAS LEFT ANKLE WOUND DEBRIDEMENT. PT DENIES PAIN AT THIS TIME. NO S/S OF RESPIRATORY DISTRESS NOTED. ALL SAFETY MEASURES IMPLEMENTED. BED IN LOW POSITION, BED WHEELS ON LOCKED AND CALL LIGHT WITHIN REACH.
[2022-11-10] MEDS: ATORVASTATIN 20 MG TAB PO SCH (20:59)
--- NOTE | 2022-11-10 20:59 | NUR ---
ALL SCHEDULED AND PRESCRIBED MEDICATION WAS GIVEN TO PT PER MD ORDER. ALL SAFETY MEASURES IMPLEMENTED. BED IN LOW POSITION, BED WHEELS ON LOCKED AND CALL LIGHT WITHIN REACH.
[2022-11-10] MEDS: ACETAMINOPHEN 325 MG TAB PO PRN (21:00)
--- NOTE | 2022-11-10 21:09 | NUR ---
PT BLOOD GLUCOSE IS 172. HUMALOG INSULIN 2 UNITS WAS GIVEN TO PT PER MD ORDER. ALL SAFETY MEASURES IMPLEMENTED. BED IN LOW POSITION, BED WHEELS ON LOCKED AND CALL LIGHT WITHIN REACH.
--- NOTE | 2022-11-10 22:34 | NUR ---
NOTIFIED DR. ROSEN FOR THE CLEARANCE OF MIDLINE PLACEMENT. DR. ROSEN GAVE HIS CLEARANCE. TOLD TO PICC LINE NURSE THAT THE PT HAS A CLEARANCE FOR INSERTION.
--- NOTE | 2022-11-10 23:30 | NUR ---
PICC LINE NURSE EDD, TOLD ME THAT THE LOCATION OF THE MIDLINE IS ON RIGHT UPPER ARM.
[2022-11-11] VITALS: BP 132/58
--- NOTE | 2022-11-11 04:00 | NUR ---
MORNING CARE WAS DONE TO PT. NO COMPLAIN OF PAIN. NO S/S OF RESPIRATORY DISTRESS NOTED. ALL SAFETY MEASURES IMPLEMENTED. BED IN LOW POSITION, BED WHEELS ON LOCK AND CALL LIGHT WITHIN REACH.
[2022-11-11] MEDS: INSULIN LISPRO SLIDING SCALE 100 UNITS/ML VIAL SUBQ PRN (06:32)
[2022-11-11] MEDS: BLOOD GLUCOSE MONITORING 1 DEV DEV FS SCH (06:32)
--- NOTE | 2022-11-11 06:32 | NUR ---
PT BLOOD PRESSURE IS 218. HUMALOG INSULIN 4 UNITS WAS GIVEN TO PT PER MD ORDER. ALL SAFETY MEASURES IMPLEMENTED. BED IN LOW POSITION, BED WHEELS ON LOCKED AND CALL LIGHT WITHIN REACH.
[2022-11-11 07:23] LABS: ANION GAP 19.1 (8-16); CARBON DIOXIDE 26.7 mmol/L (21-32); POTASSIUM 4.8 mmol/L (3.5-5.1)
--- NOTE | 2022-11-11 07:31 | NUR ---
PT IS STABLE. ENDORSED PT TO MORNING SHIFT NURSE FOR CONTINUITY OF CARE.
--- NOTE | 2022-11-11 07:31 | NUR ---
RECEIVED PT FROM MANAGER AVIATION NURSE FOR CONTINUITY OF CARE.
[2022-11-11 07:51] LABS: CREATININE 7.5 mg/dL (0.6-1.3)
[2022-11-11] MEDS: NIFEdipine 60 MG TABER PO SCH (09:00)
[2022-11-11] MEDS: FERROUS SULFATE 325 MG TABEC PO SCH (09:48)
[2022-11-11] MEDS: ASPIRIN 81 MG TAB.CHEW PO SCH (09:49)
[2022-11-11] MEDS: SEVELAMER CARBONATE 800 MG TAB PO SCH (09:49)
[2022-11-11] MEDS: ACETAMINOPHEN 325 MG TAB PO PRN (09:50)
[2022-11-11] MEDS: GABAPENTIN 300 MG CAP PO SCH (09:50)
[2022-11-11] MEDS: PANTOPRAZOLE 40 MG TABEC PO SCH (09:50)
[2022-11-11] MEDS: levETIRAcetam 100 MG/ML ORASYR PO SCH (09:54)
[2022-11-11] MEDS: INSULIN LANTUS 100 UNITS/ML 10 ML VIAL SUBQ SCH (09:58)
--- NOTE | 2022-11-17 16:01 | NUR ---
PT DC'D HOME ON 11/11/22
== END 2022-11-11 12:20 | disposition home health service (06) | DRG 629 ==
LOC: MED 15:58 → MMU 19:51 → MTU 11-04 06:34
PROVIDERS: ADMIT Family Medicine; ATTEND Family Medicine
PROC: 5A1D70Z Performance of Urinary Filtration, Intermittent, Less than 6 Hours Per Day (ICD-10-PCS; 2022-11-04)
PROC: 0QBP0ZZ Excision of Left Metatarsal, Open Approach (ICD-10-PCS; 2022-11-05)
PROC: 0QBP0ZX Excision of Left Metatarsal, Open Approach, Diagnostic (ICD-10-PCS; principal; 2022-11-05 12:00)
PROC: 5A1D70Z Performance of Urinary Filtration, Intermittent, Less than 6 Hours Per Day (ICD-10-PCS; 2022-11-07)
PROC: 0QSM04Z Reposition Left Tarsal with Internal Fixation Device, Open Approach (ICD-10-PCS; 2022-11-09)
PROC: 3E0U029 Introduction of Other Anti-infective into Joints, Open Approach (ICD-10-PCS; 2022-11-09)
PROC: 5A1D70Z Performance of Urinary Filtration, Intermittent, Less than 6 Hours Per Day (ICD-10-PCS; 2022-11-10)
PROC: 05HY33Z Insertion of Infusion Device into Upper Vein, Percutaneous Approach (ICD-10-PCS; 2022-11-10)
PROC: B54MZZA Ultrasonography of Right Upper Extremity Veins, Guidance (ICD-10-PCS; 2022-11-10)
DX: E11.69 Type 2 diabetes mellitus with other specified complication (principal); I12.0 Hypertensive chronic kidney disease with stage 5 chronic kidney disease or end stage renal disease; M86.8X6 Other osteomyelitis, lower leg; I69.354 Hemiplegia and hemiparesis following cerebral infarction affecting left non-dominant side; R78.81 Bacteremia; L03.116 Cellulitis of left lower limb; N17.0 Acute kidney failure with tubular necrosis; N18.6 End stage renal disease; A49.01 Methicillin susceptible Staphylococcus aureus infection, unspecified site; E11.621 Type 2 diabetes mellitus with foot ulcer; S91.002A Unspecified open wound, left ankle, initial encounter; G47.30 Sleep apnea, unspecified; E78.5 Hyperlipidemia, unspecified; E87.8 Other disorders of electrolyte and fluid balance, not elsewhere classified; I48.91 Unspecified atrial fibrillation; D63.8 Anemia in other chronic diseases classified elsewhere; E11.22 Type 2 diabetes mellitus with diabetic chronic kidney disease; G40.909 Epilepsy, unspecified, not intractable, without status epilepticus; E83.39 Other disorders of phosphorus metabolism; X58.XXXA Exposure to other specified factors, initial encounter; Z20.822 Contact with and (suspected) exposure to COVID-19; Z99.2 Dependence on renal dialysis; Z79.82 Long term (current) use of aspirin; Z79.899 Other long term (current) drug therapy; Y93.89 Activity, other specified; Y92.89 Other specified places as the place of occurrence of the external cause; Y99.8 Other external cause status
CPT/HCPCS: 36415; 71045; 73590; 73610; 80048; 80053; 80202; 82150; 82948; 83036; 83690; 83735; 83880; 84100; 84436; 84439; 84443; 84479; 85025; 85610; 85651; 85730; 86140; 87040; 87070; 87075; 87081; 87186; 87205; 88305; 88311; 93005; 96365; 96367; 96372; 97163-GP; 99285; A4649; C1713; J0290; J0690; J0696; J1815; J2001; J2020; J2405; J2704; J3010; J3370; J3490; J7030; J7060; J7120; Q0092

== ENCOUNTER 2022-11-30 09:14 | Emergency (ER) | payer OTHER ==
[~2022-11-30] VITALS: Ht 182.9 cm; Wt 83.9 kg
[~2022-11-30 09:14] MED LIST changes: +CEFA2PLA5 IV; +GABA300C1 PO; +NIFE60TA39 PO; +SEVE800T6 PO; +Vancomycin Per Pharmacy MC
[2022-11-30 09:25] VITALS: BP 163/68
--- NOTE | 2022-11-30 09:30 | NUR ---
57/M WHEELCHAIRED TO ED C/O LEFT ANKLE PAIN REFERRED BY WIRE INSPECTOR DR CHANDLER FOR LEFT ANKLE XR 3 VIEWS. NO ACUTE DISTRESS. NKA PMH: DIALYSIS TTHS RIGHT FISTULA , DM,
--- NOTE | 2022-11-30 11:00 | NUR ---
Patient discharged with v/s stable. Written and verbal after care instructions given and explained. Patient verbalized understanding. Wheel Chair Assisted with to home. All questions addressed prior to discharge. Advised to follow up with PMD.
== END 2022-11-30 13:54 | disposition home or self-care (01) ==
LOC: MED 09:14
DX: M86.8X7 Other osteomyelitis, ankle and foot (principal); E11.22 Type 2 diabetes mellitus with diabetic chronic kidney disease; I12.0 Hypertensive chronic kidney disease with stage 5 chronic kidney disease or end stage renal disease; N18.6 End stage renal disease; Z86.73 Personal history of transient ischemic attack (TIA), and cerebral infarction without residual deficits; Z99.2 Dependence on renal dialysis; Z79.899 Other long term (current) drug therapy; Z79.82 Long term (current) use of aspirin
CPT/HCPCS: 73610; 99283; Q0092

== ENCOUNTER 2022-12-23 10:48 | Emergency (ER) | payer OTHER ==
[~2022-12-23] VITALS: Ht 182.9 cm; Wt 81.4 kg
[2022-12-23 11:16] VITALS: BP 149/79
--- NOTE | 2022-12-23 11:18 | NUR ---
NONE HEALING LEFT FOOT ULCER X 6 MOS WORSENING OVER 2 THE PAST 2 WEEKS. HX ESRD, DIALYSIS, DM, HTN
[2022-12-23 13:01] LABS: ANION GAP 18.1 (8-16); CARBON DIOXIDE 30.2 mmol/L (21-32); POTASSIUM 4.3 mmol/L (3.5-5.1)
[2022-12-23 13:04] LABS: CREATININE 6.8 mg/dL (0.6-1.3)
[2022-12-23 14:05] LABS: BASOPHILS # (AUTO) 0.1 K/uL (0.00-0.22); EOSINOPHILS # (AUTO) 0.1 K/uL (0-0.4); EOSINOPHILS % (AUTO) 0.9 % (0.0-4.0); HEMATOCRIT 37.3 % (36-52); HEMOGLOBIN 12.1 g/dL (12.0-18.0); LYMPHOCYTES # (AUTO) 0.6 K/uL (2.0-11.5); LYMPHOCYTES % (AUTO) 10.5 % (20.5-51.1); MEAN CORPUSCULAR HEMOGLOBIN 31 pg (27-31); MEAN CORPUSCULAR HGB CONC 33 g/dL (33-37); MONOCYTES # (AUTO) 0.9 K/uL (0.8-1.0); MONOCYTES % (AUTO) 15.5 % (1.7-9.3); NEUTROPHILS # (AUTO) 4.3 K/uL (1.8-7.7); NEUTROPHILS % (AUTO) 72.1 % (42.2-75.2); PLATELET COUNT (AUTO) 273 K/uL (140-450); RED BLOOD CELL COUNT(AUTO) 3.92 MIL/uL (4.20-6.10); RED CELL DISTRIBUTION WIDTH 18.5 % (11.6-13.7)
[2022-12-23] MEDS ORDERED: VANCOMYCIN 1,000 MG in DEXTROSE 5% 250 ML IV ONE (14:30)
[2022-12-23] MEDS ORDERED: PIPERACILLIN/TAZOBACTAM 3.375 GM in DEXTROSE 5% 50 ML IV ONE (14:30)
--- NOTE | 2022-12-23 14:33 | NUR ---
PER ADMITTING, PT LWBS
[2022-12-23 14:34] VITALS: BP 149/79
--- NOTE | 2022-12-23 14:55 | NUR ---
CALLED BY REQUESTED FOR ERMD, NO ANSWER
--- NOTE | 2022-12-23 15:11 | NUR ---
CALLED FOR BED, NO ANSWER
== END 2022-12-23 14:34 | disposition left against medical advice (07) ==
LOC: MED 10:48
DX: M79.672 Pain in left foot (principal); Z53.21 Procedure and treatment not carried out due to patient leaving prior to being seen by health care provider
CPT/HCPCS: 36415; 73610; 73630; 80048; 83605; 85025; 87040; 99281

== ENCOUNTER 2023-06-09 12:47 | Emergency (ER) | payer OTHER ==
[~2023-06-09] VITALS: Ht 167.6 cm; Wt 77.1 kg
[~2023-06-09 12:47] MED LIST changes: -BACI-416 TP; +BACI-418 TP; -GABA300C1 PO; +GABA300C55 PO; -NIFE-144 PO; +NIFE30TA17 PO
[2023-06-09 13:06] VITALS: BP 151/68; PULSE 74; RESP 18; TEMP 98.1; O2SAT 98
[2023-06-09 13:37] LABS: BASOPHILS % (AUTO) 0.7 % (0.0-2.0); EOSINOPHILS # (AUTO) 0.2 K/uL (0-0.4); EOSINOPHILS % (AUTO) 2.8 % (0.0-4.0); HEMATOCRIT 39.6 % (36-52); HEMOGLOBIN 12.8 g/dL (12.0-18.0); LYMPHOCYTES # (AUTO) 0.6 K/uL (2.0-11.5); LYMPHOCYTES % (AUTO) 9.9 % (20.5-51.1); MEAN CORPUSCULAR HEMOGLOBIN 29 pg (27-31); MEAN CORPUSCULAR HGB CONC 32 g/dL (33-37); MEAN CORPUSCULAR VOLUME 91.2 fL (80-94); MONOCYTES # (AUTO) 0.4 K/uL (0.8-1.0); MONOCYTES % (AUTO) 6.3 % (1.7-9.3); NEUTROPHILS # (AUTO) 4.7 K/uL (1.8-7.7); NEUTROPHILS % (AUTO) 80.3 % (42.2-75.2); PLATELET COUNT (AUTO) 257 K/uL (140-450); RED BLOOD CELL COUNT(AUTO) 4.34 MIL/uL (4.20-6.10); RED CELL DISTRIBUTION WIDTH 19.9 % (11.6-13.7); WHITE BLOOD COUNT (AUTO) 5.9 K/uL (4.8-10.8)
[2023-06-09 13:56] VITALS: O2SAT 98
[2023-06-09 13:56] LABS: ALBUMIN 2.7 g/dL (3.4-5.0); ANION GAP 13.2 (8-16); CARBON DIOXIDE 29.8 mmol/L (21-32); TOTAL BILIRUBIN 0.6 mg/dL (0.0-1.0); TOTAL PROTEIN, SERUM 7.4 g/dL (6.4-8.2)
[2023-06-09 14:04] LABS: CREATININE 4.7 mg/dL (0.6-1.3)
[2023-06-09 15:57] VITALS: O2SAT 98
[2023-06-09] MEDS ORDERED: BLOOD GLUCOSE MONITORING 1 DEV DEV FS ONE (16:05)
[2023-06-09] MEDS ORDERED: DEXT 5% / NACL 0.9% 500 ML IV ONE (16:25)
[2023-06-09] MEDS ORDERED: DEXTROSE 50% 50 ML SYR IVP ONE ×2 (16:56→18:05)
[2023-06-09 17:56] VITALS: O2SAT 98
[2023-06-09 19:11] VITALS: BP 144/67; PULSE 73; RESP 18; TEMP 98.1; O2SAT 98
== END 2023-06-09 19:30 | disposition home or self-care (01) ==
LOC: MED 12:47
DX: E11.22 Type 2 diabetes mellitus with diabetic chronic kidney disease (principal); I12.0 Hypertensive chronic kidney disease with stage 5 chronic kidney disease or end stage renal disease; N18.5 Chronic kidney disease, stage 5; Z79.4 Long term (current) use of insulin; Z79.899 Other long term (current) drug therapy
CPT/HCPCS: 36415; 80053; 82948; 85025; 96374; 99283; 99285

== ENCOUNTER 2023-06-20 13:27 | Inpatient (IN) | payer OTHER ==
[~2023-06-20] VITALS: Ht 182.9 cm; Wt 72.6 kg
[2023-06-20 13:32] VITALS: BP 165/87; PULSE 67; RESP 18; O2SAT 100
[2023-06-20 13:47] VITALS: BP 165/87; PULSE 67; RESP 18; TEMP 97.1; O2SAT 100
[2023-06-20] MEDS ORDERED: FERR325E14 PO (14:15)
[2023-06-20] MEDS ORDERED: FURO-572 PO (14:15)
[2023-06-20] MEDS ORDERED: CIPR500T4 PO (14:15)
[2023-06-20] MEDS ORDERED: ACET-503 PO (14:15)
[2023-06-20] MEDS ORDERED: TICA90TA PO (14:15)
[2023-06-20] MEDS ORDERED: PHE25S PO (14:15)
[2023-06-20] MEDS ORDERED: ACET-5629 PO (14:15)
[2023-06-20] MEDS ORDERED: METO25TE2 PO (14:15)
[2023-06-20] MEDS ORDERED: GABA300C PO (14:15)
[2023-06-20] MEDS ORDERED: CLON0.1T16 PO (14:15)
[2023-06-20] MEDS ORDERED: CALC667T8 PO (14:15)
[2023-06-20] MEDS ORDERED: TRAZ-343 PO (14:15)
[2023-06-20 14:16] LABS: BASOPHILS # (AUTO) 0.2 K/uL (0.00-0.22); BASOPHILS % (AUTO) 2.6 % (0.0-2.0); EOSINOPHILS # (AUTO) 0.2 K/uL (0-0.4); EOSINOPHILS % (AUTO) 3.5 % (0.0-4.0); HEMATOCRIT 35.3 % (36-52); HEMOGLOBIN 11.5 g/dL (12.0-18.0); LYMPHOCYTES % (AUTO) 16.2 % (20.5-51.1); MEAN CORPUSCULAR HEMOGLOBIN 29 pg (27-31); MEAN CORPUSCULAR HGB CONC 33 g/dL (33-37); MEAN CORPUSCULAR VOLUME 89.1 fL (80-94); MONOCYTES # (AUTO) 0.4 K/uL (0.8-1.0); MONOCYTES % (AUTO) 5.8 % (1.7-9.3); NEUTROPHILS # (AUTO) 4.5 K/uL (1.8-7.7); NEUTROPHILS % (AUTO) 71.9 % (42.2-75.2); PLATELET COUNT (AUTO) 281 K/uL (140-450); RED BLOOD CELL COUNT(AUTO) 3.96 MIL/uL (4.20-6.10); RED CELL DISTRIBUTION WIDTH 19.3 % (11.6-13.7); WHITE BLOOD COUNT (AUTO) 6.3 K/uL (4.8-10.8)
[2023-06-20 14:25] LABS: INR 1.03 (0.8-1.2); PROTHROMBIN TIME 10.8 secs (10.8-13.4)
[2023-06-20 14:33] LABS: ALBUMIN 2.8 g/dL (3.4-5.0); ANION GAP 17.6 (8-16); CALCIUM 7.8 mg/dL (8.5-10.1); CARBON DIOXIDE 26.3 mmol/L (21-32); POTASSIUM 5.9 mmol/L (3.5-5.1); TOTAL BILIRUBIN 0.6 mg/dL (0.0-1.0); TOTAL PROTEIN, SERUM 7.4 g/dL (6.4-8.2)
[2023-06-20 14:44] LABS: CREATINE KINASE, TOTAL 818 U/L (39-308); MAGNESIUM 2.6 mg/dL (1.8-2.4); PHOSPHORUS 7.8 mg/dL (2.5-4.9); THYROID STIMULATING HORMONE 1.94 uIU/mL (0.34-3.74)
[2023-06-20 14:45] LABS: CREATININE 10.5 mg/dL (0.6-1.3)
[2023-06-20] MEDS ORDERED: DEXTROSE 50% 50 ML SYR IVP ONE (14:50)
[2023-06-20] MEDS ORDERED: INSULIN REGULAR, HUMAN 100 UNIT/ML VIAL IV ONE (14:50)
[2023-06-20] MEDS ORDERED: CALCIUM GLUC 1 GM/50 mL NS BAG 50 ML IV ONE (14:50)
[2023-06-20 15:09] LABS: ALCOHOL, BLOOD < 3 mg/dL (<10)
[2023-06-20] MEDS ORDERED: ASPIRIN 81 MG TAB.CHEW PO ONE (15:20)
[2023-06-20] MEDS ORDERED: SODIUM ZIRCONIUM CYCLOSILICATE 10 GM POWD.PACK PO ONE (15:20)
[2023-06-20] MEDS ORDERED: NACL 0.9% 1,000 ML IV SCH (17:20)
[2023-06-20] MEDS ORDERED: POTASSIUM CHLORIDE 10 MEQ TABER PO PRN (17:20)
[2023-06-20] MEDS ORDERED: ZOLPIDEM 5 MG TAB PO PRN (17:20)
[2023-06-20] MEDS ORDERED: DOCUSATE SODIUM 100 MG GELCAP PO PRN (17:20)
[2023-06-20] MEDS ORDERED: ACETAMINOPHEN 325 MG TAB PO PRN (17:20)
[2023-06-20] MEDS ORDERED: ONDANSETRON 4 MG/2 ML VIAL IM/IVP PRN (17:20)
[2023-06-20] MEDS ORDERED: guaiFENesin DM 200/20 MG-10 ML 10 ML UDC PO PRN (17:20)
[2023-06-20] MEDS ORDERED: HYDROcodone/APAP 7.5/325 MG 1 TAB PO PRN (17:20)
[2023-06-20 17:59] LABS: CHOL/HDL RATIO 2.1 (1-4.5); FREE T4 (FREE THYROXINE) 0.91 ng/dL (0.76-1.46)
[2023-06-20] MEDS ORDERED: DEXTROSE 50% 50 ML SYR IVP PRN (20:20)
[2023-06-20] MEDS: DEXT 5% / NACL 0.45% 1,000 ML IV SCH (20:47)
[2023-06-21] VITALS (7 sets, daily range): BP systolic 121–163; BP diastolic 57–84; PULSE 62–81; RESP 16–18; TEMP 96.9–99.2; O2SAT 98–99
[2023-06-21] MEDS: BLOOD GLUCOSE MONITORING 1 DEV DEV FS SCH ×6 (00:01→20:20)
[2023-06-21] MEDS ORDERED: DEXTROSE 50% 50 ML SYR IVP PRN (07:10)
[2023-06-21] MEDS ORDERED: MAG SULF 2000 MG/WATER PREMIX 50 ML IV PRN (07:10)
[2023-06-21] MEDS ORDERED: ZOLPIDEM 10 MG TAB PO PRN (07:10)
[2023-06-21] MEDS ORDERED: LORazepam 2 MG/ML VIAL IVP PRN (07:10)
[2023-06-21] MEDS ORDERED: ONDANSETRON 4 MG/2 ML VIAL IVP PRN (07:10)
[2023-06-21] MEDS ORDERED: POTASSIUM CHLORIDE 10 MEQ TABER PO PRN (07:10)
[2023-06-21] MEDS ORDERED: DOCUSATE SODIUM 100 MG GELCAP PO PRN (07:10)
[2023-06-21] MEDS ORDERED: ACETAMINOPHEN 325 MG TAB PO PRN (07:10)
[2023-06-21] MEDS ORDERED: NON-FORMULARY ITEM (Ticagrelor (Brilinta) 90 MG) PO SCH (09:00)
[2023-06-21] MEDS ORDERED: CALCIUM ACETATE PO SCH (09:00)
[2023-06-21] MEDS ORDERED: NIFEDIPINE 60 MG PO SCH (09:00)
[2023-06-21] MEDS: PANTOPRAZOLE 40 MG TABEC PO SCH (09:02)
[2023-06-21] MEDS: GABAPENTIN 300 MG CAP PO SCH (09:03)
[2023-06-21] MEDS: FERROUS SULFATE 325 MG TABEC PO SCH (09:03)
[2023-06-21] MEDS: ASPIRIN 81 MG TAB.CHEW PO SCH (09:03)
[2023-06-21] MEDS: METOPROLOL SUCCINATE 50 MG TABER PO SCH (09:03)
[2023-06-21] MEDS: NIFEdipine 60 MG TABER PO SCH (09:04)
[2023-06-21] MEDS: FUROSEMIDE 20 MG TAB PO SCH (09:04)
[2023-06-21 09:31] LABS: BASOPHILS # (AUTO) 0.1 K/uL (0.00-0.22); BASOPHILS % (AUTO) 1.6 % (0.0-2.0); EOSINOPHILS # (AUTO) 0.3 K/uL (0-0.4); EOSINOPHILS % (AUTO) 4.7 % (0.0-4.0); HEMATOCRIT 34.7 % (36-52); HEMOGLOBIN 11.5 g/dL (12.0-18.0); LYMPHOCYTES % (AUTO) 16.6 % (20.5-51.1); MEAN CORPUSCULAR HEMOGLOBIN 30 pg (27-31); MEAN CORPUSCULAR HGB CONC 33 g/dL (33-37); MEAN CORPUSCULAR VOLUME 89.1 fL (80-94); MONOCYTES # (AUTO) 0.4 K/uL (0.8-1.0); MONOCYTES % (AUTO) 6.5 % (1.7-9.3); NEUTROPHILS # (AUTO) 4.4 K/uL (1.8-7.7); NEUTROPHILS % (AUTO) 70.6 % (42.2-75.2); PLATELET COUNT (AUTO) 277 K/uL (140-450); RED BLOOD CELL COUNT(AUTO) 3.89 MIL/uL (4.20-6.10); RED CELL DISTRIBUTION WIDTH 19.3 % (11.6-13.7); WHITE BLOOD COUNT (AUTO) 6.2 K/uL (4.8-10.8)
[2023-06-21 09:45] LABS: ANION GAP 23.4 (8-16); CALCIUM 7.7 mg/dL (8.5-10.1); CARBON DIOXIDE 20.9 mmol/L (21-32)
[2023-06-21 09:47] LABS: POTASSIUM 6.3 mmol/L (3.5-5.1)
[2023-06-21 09:48] LABS: CREATININE 11.3 mg/dL (0.6-1.3)
[2023-06-21] MEDS: INSULIN LISPRO SLIDING SCALE 100 UNITS/ML VIAL SUBQ PRN ×2 (12:07→20:31)
[2023-06-21] MEDS: CALCIUM ACETATE 667 MG TAB PO SCH ×2 (12:10→16:10)
[2023-06-21] MEDS: DEXT 5% / NACL 0.45% 1,000 ML IV SCH (16:10)
[2023-06-21] MEDS: MORPHINE SULFATE 2 MG/ML SYR IVP PRN (18:48)
[2023-06-21] MEDS ORDERED: traZODone 50 MG TAB PO SCH (21:00)
[2023-06-22] VITALS: BP 131/72; PULSE 66; PULSE 75; RESP 18; TEMP 98.7; O2SAT 98
[2023-06-22] MEDS: MORPHINE SULFATE 2 MG/ML SYR IVP PRN (03:59)
[2023-06-22 04:00] VITALS: BP 128/65; PULSE 66; PULSE 73; RESP 16; TEMP 98.5; O2SAT 97
[2023-06-22 05:51] LABS: BASOPHILS # (AUTO) 0.1 K/uL (0.00-0.22); BASOPHILS % (AUTO) 2.2 % (0.0-2.0); EOSINOPHILS # (AUTO) 0.2 K/uL (0-0.4); EOSINOPHILS % (AUTO) 4.3 % (0.0-4.0); HEMATOCRIT 32.6 % (36-52); HEMOGLOBIN 10.8 g/dL (12.0-18.0); LYMPHOCYTES # (AUTO) 0.9 K/uL (2.0-11.5); LYMPHOCYTES % (AUTO) 19.6 % (20.5-51.1); MEAN CORPUSCULAR HEMOGLOBIN 30 pg (27-31); MEAN CORPUSCULAR HGB CONC 33 g/dL (33-37); MEAN CORPUSCULAR VOLUME 89.9 fL (80-94); MONOCYTES # (AUTO) 0.4 K/uL (0.8-1.0); MONOCYTES % (AUTO) 8.6 % (1.7-9.3); NEUTROPHILS # (AUTO) 3.1 K/uL (1.8-7.7); NEUTROPHILS % (AUTO) 65.3 % (42.2-75.2); PLATELET COUNT (AUTO) 252 K/uL (140-450); RED BLOOD CELL COUNT(AUTO) 3.62 MIL/uL (4.20-6.10); RED CELL DISTRIBUTION WIDTH 19.5 % (11.6-13.7); WHITE BLOOD COUNT (AUTO) 4.8 K/uL (4.8-10.8)
[2023-06-22 06:08] LABS: T4 (THYROXINE) 6.5 ug/dL (4.5-12.0)
[2023-06-22] MEDS: BLOOD GLUCOSE MONITORING 1 DEV DEV FS SCH ×3 (06:41→17:15)
[2023-06-22] MEDS: INSULIN LISPRO SLIDING SCALE 100 UNITS/ML VIAL SUBQ PRN ×3 (06:44→17:21)
[2023-06-22 08:00] VITALS: BP 165/63; PULSE 64; PULSE 66; RESP 16; TEMP 98.5; O2SAT 100
[2023-06-22] MEDS: FERROUS SULFATE 325 MG TABEC PO SCH (08:50)
[2023-06-22 08:51] LABS: ANION GAP 21.2 (8-16); CALCIUM 7.8 mg/dL (8.5-10.1); CARBON DIOXIDE 21.6 mmol/L (21-32); POTASSIUM 5.8 mmol/L (3.5-5.1)
[2023-06-22] MEDS: ASPIRIN 81 MG TAB.CHEW PO SCH (08:53)
[2023-06-22] MEDS: CALCIUM ACETATE 667 MG TAB PO SCH ×3 (08:53→17:19)
[2023-06-22] MEDS: NIFEdipine 60 MG TABER PO SCH (08:54)
[2023-06-22] MEDS: FUROSEMIDE 20 MG TAB PO SCH (08:54)
[2023-06-22] MEDS: PANTOPRAZOLE 40 MG TABEC PO SCH (08:55)
[2023-06-22] MEDS: METOPROLOL SUCCINATE 50 MG TABER PO SCH (08:55)
[2023-06-22 09:00] LABS: CREATININE 8.5 mg/dL (0.6-1.3)
[2023-06-22] MEDS: GABAPENTIN 300 MG CAP PO SCH (09:11)
[2023-06-22] MEDS ORDERED: CALCIUM GLUC 1 GM/50 mL NS BAG 50 ML IV SCH (11:30)
[2023-06-22 12:00] VITALS: BP 126/62; PULSE 63; PULSE 65; RESP 18; TEMP 97.8; O2SAT 100
[2023-06-22] MEDS: DEXT 5% / NACL 0.45% 1,000 ML IV SCH (12:20)
[2023-06-22] MEDS ORDERED: APIX2.5 PO (12:58)
[2023-06-22 15:15] LABS: HEMOGLOBIN A1C 10.1 % (4.8-5.6)
[2023-06-22 16:00] VITALS: BP 104/58; PULSE 64; PULSE 66; RESP 19; TEMP 97.2; O2SAT 100
== END 2023-06-22 19:07 | DRG 280 ==
LOC: MED 13:27 → MMU 17:15 → MTU 06-21 06:29
PROVIDERS: ADMIT Family Medicine; ATTEND Family Medicine
PROC: 5A1D70Z Performance of Urinary Filtration, Intermittent, Less than 6 Hours Per Day (ICD-10-PCS; principal; 2023-06-21)
PROC: 5A1D70Z Performance of Urinary Filtration, Intermittent, Less than 6 Hours Per Day (ICD-10-PCS; 2023-06-22)
PROC: 5A1D70Z Performance of Urinary Filtration, Intermittent, Less than 6 Hours Per Day (ICD-10-PCS; 2023-06-22)
DX: I13.2 Hypertensive heart and chronic kidney disease with heart failure and with stage 5 chronic kidney disease, or end stage renal disease (principal); I21.A1 Myocardial infarction type 2; E43 Unspecified severe protein-calorie malnutrition; G93.41 Metabolic encephalopathy; I50.41 Acute combined systolic (congestive) and diastolic (congestive) heart failure; N17.0 Acute kidney failure with tubular necrosis; N18.6 End stage renal disease; E87.1 Hypo-osmolality and hyponatremia; E87.5 Hyperkalemia; E11.649 Type 2 diabetes mellitus with hypoglycemia without coma; D63.1 Anemia in chronic kidney disease; E83.39 Other disorders of phosphorus metabolism; Z99.2 Dependence on renal dialysis; I48.0 Paroxysmal atrial fibrillation; E11.40 Type 2 diabetes mellitus with diabetic neuropathy, unspecified; E11.22 Type 2 diabetes mellitus with diabetic chronic kidney disease; I25.10 Atherosclerotic heart disease of native coronary artery without angina pectoris; Z89.512 Acquired absence of left leg below knee; Z95.5 Presence of coronary angioplasty implant and graft; Z79.4 Long term (current) use of insulin; Z79.899 Other long term (current) drug therapy; Z79.82 Long term (current) use of aspirin; I25.2 Old myocardial infarction; I69.344 Monoplegia of lower limb following cerebral infarction affecting left non-dominant side; Z68.21 Body mass index [BMI] 21.0-21.9, adult
CPT/HCPCS: 36415; 70450; 71045; 80048; 80053; 82140; 82150; 82550; 82553; 82948; 83036; 83690; 83735; 83880; 84100; 84436; 84439; 84443; 84479; 84484; 85025; 85610; 87040; 87081; 93005; 96374; 99291; G0482; J0610; J1644; J1815; J2060; J2270; J2405; Q0092

== ENCOUNTER 2023-07-09 12:43 | Inpatient (IN) | payer OTHER ==
[~2023-07-09] VITALS: Ht 182.9 cm; Wt 90.7 kg
[~2023-07-09 12:43] MED LIST changes: -ACET-10509 PO; +ACET-503 PO; +ACET-5629 PO; +APIX2.5 PO; -ATOR20TA40 PO; -BACI-418 TP; +CALC667T8 PO; -CEFA2PLA5 IV; +CLON0.1T16 PO; -FER325 PO; +FERR325E14 PO; +FURO-572 PO; +GABA300C PO; -GABA300C55 PO; -IBUP-1842 PO; -INSU100S5; -LANTUS SUBQ; -LEVE100S PO; -LID5T TP; +METO25TE2 PO; -NIFE60TA39 PO; -OMEP40EC24 PO; +PHE25S PO; -SEVE800T6 PO; -SIMV-371 PO; +TRAZ-343 PO; -Vancomycin Per Pharmacy MC
[2023-07-09 12:57] VITALS: BP 154/71; PULSE 75; RESP 16; O2SAT 98
[2023-07-09 13:30] LABS: BASOPHILS % (AUTO) 2.6 % (0.0-2.0); EOSINOPHILS % (AUTO) 3.3 % (0.0-4.0); HEMATOCRIT 30.6 % (36-52); HEMOGLOBIN 10.1 g/dL (12.0-18.0); MEAN CORPUSCULAR HEMOGLOBIN 30 pg (27-31); MEAN CORPUSCULAR HGB CONC 33 g/dL (33-37); MEAN CORPUSCULAR VOLUME 90.5 fL (80-94); MONOCYTES % (AUTO) 6.2 % (1.7-9.3); NEUTROPHILS % (AUTO) 77.9 % (42.2-75.2); PLATELET COUNT (AUTO) 329 K/uL (140-450); RED BLOOD CELL COUNT(AUTO) 3.38 MIL/uL (4.20-6.10); WHITE BLOOD COUNT (AUTO) 5.9 K/uL (4.8-10.8)
[2023-07-09 13:31] LABS: BASOPHILS # (AUTO) 0.2 K/uL (0.00-0.22); EOSINOPHILS # (AUTO) 0.2 K/uL (0-0.4); LYMPHOCYTES # (AUTO) 0.6 K/uL (2.0-11.5); MONOCYTES # (AUTO) 0.4 K/uL (0.8-1.0); NEUTROPHILS # (AUTO) 4.6 K/uL (1.8-7.7)
[2023-07-09 13:50] LABS: ALANINE AMINOTRANSFERASE 7 U/L (12-78); ALBUMIN 2.9 g/dL (3.4-5.0); ALKALINE PHOSPHATASE 215 U/L (50-136); ANION GAP 9.1 (8-16); ASPARTATE AMINOTRANSFERASE 33 U/L (15-37); CALCIUM 8.4 mg/dL (8.5-10.1); CARBON DIOXIDE 34.6 mmol/L (21-32); CHLORIDE 98 mmol/L (98-107); CREATININE 3.1 mg/dL (0.6-1.3); GFR ARICAN-AMERICAN 27 mL/min (>90); GFR NON ARICAN-AMERICAN 22 mL/min (>90); GLUCOSE 73 mg/dL (74-106); POTASSIUM 3.7 mmol/L (3.5-5.1); SODIUM SERUM 138 mmol/L (136-145); TOTAL BILIRUBIN 0.3 mg/dL (0.0-1.0); TOTAL PROTEIN, SERUM 7.6 g/dL (6.4-8.2); UREA NITROGEN, BLOOD 13 mg/dL (7-18)
[2023-07-09] MEDS ORDERED: DEXTROSE 10% 250 ML IV ONE (14:35)
[2023-07-09] MEDS ORDERED: LORazepam 2 MG/ML VIAL IVP PRN (15:40)
[2023-07-09] MEDS ORDERED: ACETAMINOPHEN 325 MG TAB PO PRN (15:40)
[2023-07-09] MEDS ORDERED: DOCUSATE SODIUM 100 MG GELCAP PO PRN (15:40)
[2023-07-09] MEDS ORDERED: DEXTROSE 50% 50 ML SYR IVP PRN (15:40)
[2023-07-09] MEDS ORDERED: MORPHINE SULFATE 2 MG/ML SYR IVP PRN (15:40)
[2023-07-09] MEDS ORDERED: MAG SULF 2000 MG/WATER PREMIX 50 ML IV PRN (15:40)
[2023-07-09] MEDS ORDERED: POTASSIUM CHLORIDE 10 MEQ TABER PO PRN (15:40)
[2023-07-09] MEDS ORDERED: ZOLPIDEM 10 MG TAB PO PRN (15:40)
[2023-07-09] MEDS ORDERED: ONDANSETRON 4 MG/2 ML VIAL IVP PRN (15:40)
[2023-07-09] MEDS: BLOOD GLUCOSE MONITORING 1 DEV DEV FS SCH ×2 (16:30→21:15)
[2023-07-09] MEDS ORDERED: CALCIUM ACETATE PO SCH (18:00)
[2023-07-09] MEDS: CALCIUM ACETATE 667 MG TAB PO SCH (18:36)
[2023-07-09 20:44] VITALS: BP 144/60; PULSE 78; PULSE 79; RESP 18; TEMP 98.2; O2SAT 96
[2023-07-09] MEDS: INSULIN LISPRO SLIDING SCALE 100 UNITS/ML VIAL SUBQ PRN (21:19)
[2023-07-09] MEDS: APIXABAN 2.5 MG TAB PO SCH (21:20)
[2023-07-10] VITALS: BP 153/77; PULSE 111; PULSE 79; RESP 18; TEMP 97.8; O2SAT 98
[2023-07-10 04:00] VITALS: BP 158/90; PULSE 77; PULSE 79; RESP 18; TEMP 97.6; O2SAT 98
[2023-07-10] MEDS: BLOOD GLUCOSE MONITORING 1 DEV DEV FS SCH ×4 (06:32→21:40)
[2023-07-10 06:35] LABS: BASOPHILS # (AUTO) 0.1 K/uL (0.00-0.22); BASOPHILS % (AUTO) 1.1 % (0.0-2.0); EOSINOPHILS # (AUTO) 0.2 K/uL (0-0.4); EOSINOPHILS % (AUTO) 3.3 % (0.0-4.0); HEMATOCRIT 28.3 % (36-52); HEMOGLOBIN 9.3 g/dL (12.0-18.0); LYMPHOCYTES % (AUTO) 16.2 % (20.5-51.1); MEAN CORPUSCULAR HEMOGLOBIN 30 pg (27-31); MEAN CORPUSCULAR HGB CONC 33 g/dL (33-37); MONOCYTES # (AUTO) 0.4 K/uL (0.8-1.0); MONOCYTES % (AUTO) 5.8 % (1.7-9.3); NEUTROPHILS # (AUTO) 4.5 K/uL (1.8-7.7); NEUTROPHILS % (AUTO) 73.6 % (42.2-75.2); PLATELET COUNT (AUTO) 307 K/uL (140-450); RED BLOOD CELL COUNT(AUTO) 3.11 MIL/uL (4.20-6.10); RED CELL DISTRIBUTION WIDTH 18.6 % (11.6-13.7); WHITE BLOOD COUNT (AUTO) 6.1 K/uL (4.8-10.8)
[2023-07-10 06:53] LABS: ANION GAP 12.4 (8-16); CALCIUM 8.2 mg/dL (8.5-10.1); CARBON DIOXIDE 29.7 mmol/L (21-32); POTASSIUM 4.1 mmol/L (3.5-5.1)
[2023-07-10 08:00] VITALS: BP 164/76; PULSE 78; PULSE 82; RESP 18; TEMP 98.5; O2SAT 100
[2023-07-10] MEDS: METOPROLOL SUCCINATE 50 MG TABER PO SCH (08:33)
[2023-07-10] MEDS: ASPIRIN 81 MG TAB.CHEW PO SCH (08:33)
[2023-07-10] MEDS: CALCIUM ACETATE 667 MG TAB PO SCH ×3 (08:33→16:45)
[2023-07-10] MEDS: GABAPENTIN 300 MG CAP PO SCH (08:33)
[2023-07-10] MEDS: FUROSEMIDE 20 MG TAB PO SCH (08:34)
[2023-07-10] MEDS: FERROUS SULFATE 325 MG TABEC PO SCH (08:34)
[2023-07-10] MEDS: NIFEdipine 60 MG TABER PO SCH (08:35)
[2023-07-10] MEDS: APIXABAN 2.5 MG TAB PO SCH ×2 (08:39→21:39)
[2023-07-10] MEDS ORDERED: NIFEDIPINE 60 MG PO SCH (09:00)
[2023-07-10] MEDS: INSULIN LISPRO SLIDING SCALE 100 UNITS/ML VIAL SUBQ PRN ×3 (11:57→21:41)
[2023-07-10 12:00] VITALS: BP 155/75; PULSE 80; PULSE 82; RESP 17; TEMP 97.2; O2SAT 100
[2023-07-10 16:00] VITALS: BP 144/76; PULSE 77; PULSE 80; RESP 17; TEMP 97.4; O2SAT 100
[2023-07-10 20:00] VITALS: BP 116/68; PULSE 100; PULSE 80; PULSE 81; RESP 18; TEMP 98; O2SAT 100
[2023-07-11] VITALS: BP 112/65; PULSE 72; PULSE 78; RESP 18; TEMP 97.8; O2SAT 100
[2023-07-11 04:00] VITALS: BP 133/67; PULSE 73; RESP 18; TEMP 97.3; O2SAT 100
[2023-07-11] MEDS: BLOOD GLUCOSE MONITORING 1 DEV DEV FS SCH ×3 (06:54→16:48)
[2023-07-11] MEDS: INSULIN LISPRO SLIDING SCALE 100 UNITS/ML VIAL SUBQ PRN ×3 (06:57→16:51)
[2023-07-11 07:20] LABS: BASOPHILS # (AUTO) 0.2 K/uL (0.00-0.22); EOSINOPHILS # (AUTO) 0.2 K/uL (0-0.4); EOSINOPHILS % (AUTO) 3.3 % (0.0-4.0); HEMATOCRIT 26.2 % (36-52); HEMOGLOBIN 8.8 g/dL (12.0-18.0); MEAN CORPUSCULAR HEMOGLOBIN 31 pg (27-31); MEAN CORPUSCULAR HGB CONC 34 g/dL (33-37); MEAN CORPUSCULAR VOLUME 91.2 fL (80-94); MONOCYTES # (AUTO) 0.3 K/uL (0.8-1.0); MONOCYTES % (AUTO) 6.3 % (1.7-9.3); NEUTROPHILS # (AUTO) 3.5 K/uL (1.8-7.7); NEUTROPHILS % (AUTO) 68.4 % (42.2-75.2); PLATELET COUNT (AUTO) 267 K/uL (140-450); RED BLOOD CELL COUNT(AUTO) 2.87 MIL/uL (4.20-6.10); RED CELL DISTRIBUTION WIDTH 18.5 % (11.6-13.7); WHITE BLOOD COUNT (AUTO) 5.1 K/uL (4.8-10.8)
[2023-07-11 07:36] LABS: ANION GAP 16.7 (8-16); CALCIUM 8.1 mg/dL (8.5-10.1); CARBON DIOXIDE 26.6 mmol/L (21-32); POTASSIUM 5.3 mmol/L (3.5-5.1)
[2023-07-11 07:38] LABS: CREATININE 6.9 mg/dL (0.6-1.3)
[2023-07-11 08:00] VITALS: BP 141/76; PULSE 79; PULSE 84; RESP 18; TEMP 97; O2SAT 100
[2023-07-11] MEDS: METOPROLOL SUCCINATE 50 MG TABER PO SCH (08:37)
[2023-07-11] MEDS: CALCIUM ACETATE 667 MG TAB PO SCH ×3 (08:38→16:49)
[2023-07-11] MEDS: NIFEdipine 60 MG TABER PO SCH (08:39)
[2023-07-11] MEDS: FERROUS SULFATE 325 MG TABEC PO SCH (08:40)
[2023-07-11] MEDS: ASPIRIN 81 MG TAB.CHEW PO SCH (08:40)
[2023-07-11] MEDS: FUROSEMIDE 20 MG TAB PO SCH (08:40)
[2023-07-11] MEDS: GABAPENTIN 300 MG CAP PO SCH (08:40)
[2023-07-11] MEDS: APIXABAN 2.5 MG TAB PO SCH (08:42)
[2023-07-11 12:00] VITALS: BP 132/72; PULSE 70; PULSE 73; RESP 18; TEMP 97; O2SAT 92
[2023-07-11 16:00] VITALS: BP 127/63; PULSE 76; PULSE 77; RESP 18; TEMP 97.7; O2SAT 98
[2023-07-11 17:51] VITALS: BP 127/63; PULSE 77; RESP 18; TEMP 97.7
== END 2023-07-11 19:00 | disposition home or self-care (01) | DRG 637 ==
LOC: MED 12:43 → MTU 15:50 → MMU 15:50 → MTU 19:18
PROVIDERS: ADMIT General Practice; ATTEND General Practice
PROC: 5A1D70Z Performance of Urinary Filtration, Intermittent, Less than 6 Hours Per Day (ICD-10-PCS; principal; 2023-07-11)
DX: E11.649 Type 2 diabetes mellitus with hypoglycemia without coma (principal); G93.41 Metabolic encephalopathy; I12.0 Hypertensive chronic kidney disease with stage 5 chronic kidney disease or end stage renal disease; R56.9 Unspecified convulsions; E83.39 Other disorders of phosphorus metabolism; D64.9 Anemia, unspecified; I25.10 Atherosclerotic heart disease of native coronary artery without angina pectoris; E11.22 Type 2 diabetes mellitus with diabetic chronic kidney disease; N18.6 End stage renal disease; Z79.2 Long term (current) use of antibiotics; Z79.899 Other long term (current) drug therapy; Z79.82 Long term (current) use of aspirin
CPT/HCPCS: 36415; 80048; 80053; 82948; 83036; 83735; 84484; 85025; 87081; 93005; 96360; 96361; 99285; J1815; J2270

== ENCOUNTER 2023-10-25 23:20 | Inpatient (IN) | payer OTHER ==
[~2023-10-25] VITALS: Ht 182.9 cm; Wt 80.7 kg
[2023-10-25] MEDS ORDERED: DEXTROSE 10% 1,000 ML IV ONE (23:25)
[2023-10-25 23:27] VITALS: BP 158/80; PULSE 80; RESP 18; TEMP 97.8; O2SAT 99
[2023-10-25 23:49] LABS: BASOPHILS # (AUTO) 0.1 K/uL (0.00-0.22); BASOPHILS % (AUTO) 2.3 % (0.0-2.0); EOSINOPHILS # (AUTO) 0.2 K/uL (0-0.4); EOSINOPHILS % (AUTO) 3.3 % (0.0-4.0); HEMATOCRIT 31.9 % (36-52); HEMOGLOBIN 10.7 g/dL (12.0-18.0); LYMPHOCYTES # (AUTO) 0.6 K/uL (2.0-11.5); MEAN CORPUSCULAR HEMOGLOBIN 32 pg (27-31); MEAN CORPUSCULAR HGB CONC 34 g/dL (33-37); MEAN CORPUSCULAR VOLUME 95.6 fL (80-94); MONOCYTES # (AUTO) 0.4 K/uL (0.8-1.0); MONOCYTES % (AUTO) 5.7 % (1.7-9.3); NEUTROPHILS % (AUTO) 79.7 % (42.2-75.2); PLATELET COUNT (AUTO) 264 K/uL (140-450); RED BLOOD CELL COUNT(AUTO) 3.34 MIL/uL (4.20-6.10); RED CELL DISTRIBUTION WIDTH 16.9 % (11.6-13.7); WHITE BLOOD COUNT (AUTO) 6.3 K/uL (4.8-10.8)
[2023-10-25 23:59] LABS: ANION GAP 15.3 (8-16); CALCIUM 8.4 mg/dL (8.5-10.1); CARBON DIOXIDE 28.1 mmol/L (21-32); POTASSIUM 3.4 mmol/L (3.5-5.1)
[2023-10-26 00:09] LABS: LACTIC ACID 1.4 mmol/L (0.4-2.0)
[2023-10-26 00:14] LABS: ALBUMIN 2.9 g/dL (3.4-5.0); BILIRUBIN,DIRECT 0.2 mg/dL (0.0-0.3); TOTAL BILIRUBIN 0.7 mg/dL (0.0-1.0); TOTAL PROTEIN, SERUM 8.5 g/dL (6.4-8.2)
[2023-10-26 00:18] LABS: CREATININE 7.2 mg/dL (0.6-1.3)
[2023-10-26 02:44] VITALS: O2SAT 99
[2023-10-26 05:26] VITALS: O2SAT 98
[2023-10-26] MEDS ORDERED: DEXTROSE 10% 1,000 ML IV SCH (06:30)
[2023-10-26 07:30] VITALS: O2SAT 98
[2023-10-26] MEDS ORDERED: CLONIDINE HYDROCHLORIDE 0.1 MG TAB PO SCH (09:15)
[2023-10-26] MEDS ORDERED: ACETAMINOPHEN/CODEINE 300/30MG 1 TAB PO SCH (09:15)
[2023-10-26] MEDS ORDERED: DEXTROSE 50% 50 ML SYR IVP PRN (10:45)
[2023-10-26] MEDS: INSULIN LISPRO SLIDING SCALE 100 UNITS/ML VIAL SUBQ PRN ×3 (10:47→16:50)
[2023-10-26] MEDS: BLOOD GLUCOSE MONITORING 1 DEV DEV FS SCH ×3 (11:33→20:40)
[2023-10-26] MEDS: CALCIUM ACETATE 667 MG TAB PO SCH ×2 (12:48→17:58)
[2023-10-26] MEDS ORDERED: CALCIUM ACETATE PO SCH (13:00)
[2023-10-26 17:34] VITALS: PULSE 88; RESP 16; O2SAT 99
[2023-10-26 17:58] VITALS: BP 132/81; PULSE 84; RESP 18; TEMP 97; O2SAT 96
[2023-10-26 20:00] VITALS: BP 115/66; PULSE 100; PULSE 84; RESP 18; TEMP 97.8; O2SAT 97
[2023-10-26] MEDS: APIXABAN 2.5 MG TAB PO SCH (20:33)
[2023-10-26] MEDS: traZODone 50 MG TAB PO SCH (20:33)
[2023-10-26] MEDS: oxyCODONE/APAP 5/325 MG 1 TAB TAB PO PRN (22:57)
[2023-10-27] VITALS (7 sets, daily range): BP systolic 124–135; BP diastolic 66–85; PULSE 65–89; RESP 18; TEMP 97.6–99; O2SAT 97–100
[2023-10-27] MEDS: INSULIN LISPRO SLIDING SCALE 100 UNITS/ML VIAL SUBQ PRN ×4 (06:32→21:07)
[2023-10-27] MEDS: BLOOD GLUCOSE MONITORING 1 DEV DEV FS SCH ×4 (06:45→21:04)
[2023-10-27 08:01] LABS: BASOPHILS # (AUTO) 0.1 K/uL (0.00-0.22); BASOPHILS % (AUTO) 3.4 % (0.0-2.0); EOSINOPHILS # (AUTO) 0.3 K/uL (0-0.4); EOSINOPHILS % (AUTO) 8.1 % (0.0-4.0); HEMATOCRIT 30.7 % (36-52); HEMOGLOBIN 10.2 g/dL (12.0-18.0); LYMPHOCYTES # (AUTO) 0.9 K/uL (2.0-11.5); LYMPHOCYTES % (AUTO) 23.2 % (20.5-51.1); MEAN CORPUSCULAR HEMOGLOBIN 31 pg (27-31); MEAN CORPUSCULAR HGB CONC 33 g/dL (33-37); MEAN CORPUSCULAR VOLUME 94.4 fL (80-94); MONOCYTES # (AUTO) 0.2 K/uL (0.8-1.0); MONOCYTES % (AUTO) 5.6 % (1.7-9.3); NEUTROPHILS # (AUTO) 2.2 K/uL (1.8-7.7); NEUTROPHILS % (AUTO) 59.7 % (42.2-75.2); PLATELET COUNT (AUTO) 256 K/uL (140-450); RED BLOOD CELL COUNT(AUTO) 3.25 MIL/uL (4.20-6.10); RED CELL DISTRIBUTION WIDTH 16.7 % (11.6-13.7); WHITE BLOOD COUNT (AUTO) 3.8 K/uL (4.8-10.8)
[2023-10-27] MEDS: FUROSEMIDE 20 MG TAB PO SCH (09:00)
[2023-10-27] MEDS ORDERED: NIFEDIPINE 60 MG PO SCH (09:00)
[2023-10-27] MEDS: NIFEdipine 60 MG TABER PO SCH (09:00)
[2023-10-27] MEDS: METOPROLOL SUCCINATE 50 MG TABER PO SCH (09:00)
[2023-10-27 09:03] LABS: ANION GAP 16.4 (8-16); CALCIUM 8.4 mg/dL (8.5-10.1); CARBON DIOXIDE 27.3 mmol/L (21-32); POTASSIUM 4.7 mmol/L (3.5-5.1)
[2023-10-27 09:10] LABS: CREATININE 9.1 mg/dL (0.6-1.3)
[2023-10-27] MEDS: FERROUS SULFATE 325 MG TABEC PO SCH (10:50)
[2023-10-27] MEDS: GABAPENTIN 300 MG CAP PO SCH (10:50)
[2023-10-27] MEDS: CALCIUM ACETATE 667 MG TAB PO SCH ×3 (10:51→18:08)
[2023-10-27] MEDS: APIXABAN 2.5 MG TAB PO SCH ×2 (10:53→21:00)
[2023-10-27] MEDS: oxyCODONE/APAP 5/325 MG 1 TAB TAB PO PRN (12:53)
[2023-10-27] MEDS: traZODone 50 MG TAB PO SCH (21:00)
[2023-10-28] VITALS: BP 120/68; PULSE 73; PULSE 79; RESP 18; TEMP 98; O2SAT 100
[2023-10-28] MEDS: GAUZE TP SCH ×2 (01:07→13:24)
[2023-10-28 04:00] VITALS: BP 138/74; PULSE 74; PULSE 90; RESP 18; TEMP 97.6; O2SAT 100
[2023-10-28] MEDS: BLOOD GLUCOSE MONITORING 1 DEV DEV FS SCH ×2 (06:45→11:49)
[2023-10-28] MEDS: INSULIN LISPRO SLIDING SCALE 100 UNITS/ML VIAL SUBQ PRN ×2 (06:48→11:48)
[2023-10-28 07:24] LABS: BASOPHILS # (AUTO) 0.1 K/uL (0.00-0.22); BASOPHILS % (AUTO) 3.1 % (0.0-2.0); EOSINOPHILS # (AUTO) 0.2 K/uL (0-0.4); EOSINOPHILS % (AUTO) 6.7 % (0.0-4.0); HEMATOCRIT 30.3 % (36-52); HEMOGLOBIN 10.1 g/dL (12.0-18.0); LYMPHOCYTES # (AUTO) 0.8 K/uL (2.0-11.5); LYMPHOCYTES % (AUTO) 21.2 % (20.5-51.1); MEAN CORPUSCULAR HEMOGLOBIN 32 pg (27-31); MEAN CORPUSCULAR HGB CONC 33 g/dL (33-37); MEAN CORPUSCULAR VOLUME 95.1 fL (80-94); MONOCYTES # (AUTO) 0.3 K/uL (0.8-1.0); MONOCYTES % (AUTO) 7.6 % (1.7-9.3); NEUTROPHILS # (AUTO) 2.3 K/uL (1.8-7.7); NEUTROPHILS % (AUTO) 61.4 % (42.2-75.2); PLATELET COUNT (AUTO) 236 K/uL (140-450); RED BLOOD CELL COUNT(AUTO) 3.19 MIL/uL (4.20-6.10); RED CELL DISTRIBUTION WIDTH 17.2 % (11.6-13.7); WHITE BLOOD COUNT (AUTO) 3.7 K/uL (4.8-10.8)
[2023-10-28 07:55] LABS: ANION GAP 21.4 (8-16); CALCIUM 8.7 mg/dL (8.5-10.1); POTASSIUM 5.4 mmol/L (3.5-5.1)
[2023-10-28 08:00] VITALS: BP 131/83; PULSE 75; PULSE 82; PULSE 86; RESP 18; RESP 19; TEMP 97.9; O2SAT 100
[2023-10-28 08:44] LABS: CREATININE 7.4 mg/dL (0.6-1.3)
[2023-10-28] MEDS: APIXABAN 2.5 MG TAB PO SCH (09:31)
[2023-10-28] MEDS: GABAPENTIN 300 MG CAP PO SCH (09:31)
[2023-10-28] MEDS: NIFEdipine 60 MG TABER PO SCH (09:32)
[2023-10-28] MEDS: FERROUS SULFATE 325 MG TABEC PO SCH (09:32)
[2023-10-28] MEDS: FUROSEMIDE 20 MG TAB PO SCH (09:32)
[2023-10-28] MEDS: CALCIUM ACETATE 667 MG TAB PO SCH ×2 (09:32→13:23)
[2023-10-28] MEDS: METOPROLOL SUCCINATE 50 MG TABER PO SCH (09:32)
[2023-10-28] MEDS ORDERED: SODIUM ZIRCONIUM CYCLOSILICATE 10 GM POWD.PACK PO SCH (10:01)
[2023-10-28 12:00] VITALS: BP 138/69; PULSE 72; PULSE 74; RESP 18; TEMP 97.9; O2SAT 99
[2023-10-28 12:44] VITALS: BP 138/69; PULSE 74; RESP 18; TEMP 97.9
== END 2023-10-28 15:30 | disposition home or self-care (01) | DRG 637 ==
LOC: MED 23:20 → MMU 10-26 06:24 → OBSVTOIN 10-26 11:51 → MTU 10-26 15:53
PROVIDERS: ADMIT Family Medicine; ATTEND Family Medicine
PROC: 5A1D70Z Performance of Urinary Filtration, Intermittent, Less than 6 Hours Per Day (ICD-10-PCS; principal; 2023-10-26)
DX: E11.649 Type 2 diabetes mellitus with hypoglycemia without coma (principal); G93.41 Metabolic encephalopathy; E87.1 Hypo-osmolality and hyponatremia; N18.6 End stage renal disease; E87.6 Hypokalemia; D63.1 Anemia in chronic kidney disease; E83.39 Other disorders of phosphorus metabolism; E11.21 Type 2 diabetes mellitus with diabetic nephropathy; Z99.2 Dependence on renal dialysis
CPT/HCPCS: 36415; 71045; 80048; 80076; 82948; 83605; 85025; 87040; 87081; 99285; J1815

== ENCOUNTER 2023-11-11 09:23 | Emergency (ER) | payer OTHER ==
[~2023-11-11] VITALS: Ht 182.9 cm; Wt 81.6 kg
[~2023-11-11 09:23] MED LIST changes: -PHE25S PO
[2023-11-11 09:39] VITALS: BP 134/80; PULSE 70; RESP 16; TEMP 97.1; O2SAT 99
[2023-11-11 10:01] VITALS: TEMP 97.1
[2023-11-11 10:16] LABS: BASOPHILS % (AUTO) 0.5 % (0.0-2.0); EOSINOPHILS # (AUTO) 0.1 K/uL (0-0.4); EOSINOPHILS % (AUTO) 1.6 % (0.0-4.0); HEMATOCRIT 36.2 % (36-52); HEMOGLOBIN 11.9 g/dL (12.0-18.0); LYMPHOCYTES # (AUTO) 0.4 K/uL (2.0-11.5); LYMPHOCYTES % (AUTO) 6.1 % (20.5-51.1); MEAN CORPUSCULAR HEMOGLOBIN 31 pg (27-31); MEAN CORPUSCULAR HGB CONC 33 g/dL (33-37); MEAN CORPUSCULAR VOLUME 94.5 fL (80-94); MONOCYTES # (AUTO) 0.5 K/uL (0.8-1.0); MONOCYTES % (AUTO) 8.2 % (1.7-9.3); NEUTROPHILS # (AUTO) 5.4 K/uL (1.8-7.7); NEUTROPHILS % (AUTO) 83.6 % (42.2-75.2); PLATELET COUNT (AUTO) 212 K/uL (140-450); RED BLOOD CELL COUNT(AUTO) 3.83 MIL/uL (4.20-6.10); RED CELL DISTRIBUTION WIDTH 16.9 % (11.6-13.7); WHITE BLOOD COUNT (AUTO) 6.4 K/uL (4.8-10.8)
[2023-11-11 10:54] LABS: ANION GAP 15.4 (8-16); CALCIUM 8.6 mg/dL (8.5-10.1); CARBON DIOXIDE 32.3 mmol/L (21-32); POTASSIUM 3.7 mmol/L (3.5-5.1)
[2023-11-11 11:04] LABS: CREATININE 6.2 mg/dL (0.6-1.3)
[2023-11-11 11:15] VITALS: BP 145/79; PULSE 80; RESP 16; O2SAT 96
== END 2023-11-11 11:15 | disposition home or self-care (01) ==
LOC: MED 09:23
DX: E11.649 Type 2 diabetes mellitus with hypoglycemia without coma (principal); I10 Essential (primary) hypertension; Z87.448 Personal history of other diseases of urinary system; Z79.899 Other long term (current) drug therapy; Z79.82 Long term (current) use of aspirin; Z79.01 Long term (current) use of anticoagulants
CPT/HCPCS: 36415; 80048; 85025; 99283

== ENCOUNTER 2024-05-22 12:27 | Observation (INO) | payer MEDICARE, OTHER ==
[~2024-05-22] VITALS: Ht 182.9 cm; Wt 83.9 kg
[2024-05-22 12:35] VITALS: BP 159/82; PULSE 79; RESP 18; TEMP 98.6; O2SAT 99
[2024-05-22 13:27] LABS: BASOPHILS % (AUTO) 0.7 % (0.0-2.0); EOSINOPHILS # (AUTO) 0.1 K/uL (0-0.4); EOSINOPHILS % (AUTO) 2.5 % (0.0-4.0); HEMATOCRIT 38.7 % (36-52); HEMOGLOBIN 12.4 g/dL (12.0-18.0); LYMPHOCYTES # (AUTO) 0.5 K/uL (2.0-11.5); LYMPHOCYTES % (AUTO) 11.1 % (20.5-51.1); MEAN CORPUSCULAR HEMOGLOBIN 32 pg (27-31); MEAN CORPUSCULAR HGB CONC 32 g/dL (33-37); MEAN CORPUSCULAR VOLUME 98.3 fL (80-94); MONOCYTES # (AUTO) 0.2 K/uL (0.8-1.0); MONOCYTES % (AUTO) 4.7 % (1.7-9.3); NEUTROPHILS # (AUTO) 3.6 K/uL (1.8-7.7); PLATELET COUNT (AUTO) 193 K/uL (140-450); RED BLOOD CELL COUNT(AUTO) 3.94 MIL/uL (4.20-6.10); RED CELL DISTRIBUTION WIDTH 17.5 % (11.6-13.7); WHITE BLOOD COUNT (AUTO) 4.4 K/uL (4.8-10.8)
[2024-05-22 13:44] LABS: CALCIUM 9.5 mg/dL (8.5-10.1); CARBON DIOXIDE 30.5 mmol/L (21-32); POTASSIUM 3.5 mmol/L (3.5-5.1)
[2024-05-22 13:45] LABS: CREATININE 6.8 mg/dL (0.6-1.3)
[2024-05-22 14:07] LABS: ALANINE AMINOTRANSFERASE 47 U/L (12-78); ALBUMIN 3.6 g/dL (3.4-5.0); ALKALINE PHOSPHATASE 230 U/L (50-136); ASPARTATE AMINOTRANSFERASE 57 U/L (15-37); BILIRUBIN,DIRECT 0.2 mg/dL (0.0-0.3); TOTAL PROTEIN, SERUM 8.3 g/dL (6.4-8.2)
[2024-05-22] MEDS: ASPIRIN 81 MG TAB.CHEW PO ONE (14:53)
[2024-05-22] MEDS ORDERED: LORazepam 1 MG TAB PO PRN (15:00)
[2024-05-22] MEDS ORDERED: ACETAMINOPHEN 325 MG TAB PO PRN (15:00)
[2024-05-22] MEDS ORDERED: MORPHINE SULFATE 4 MG/ML SYR IVP PRN (15:00)
[2024-05-22] MEDS ORDERED: HYDROcodone/APAP 5/325 MG 1 TAB TAB PO PRN (15:00)
[2024-05-22] MEDS ORDERED: ONDANSETRON 4 MG/2 ML VIAL IVP PRN (15:00)
[2024-05-22 17:00] VITALS: PULSE 75; RESP 12; O2SAT 99
[2024-05-22] MEDS ORDERED: DEXTROSE 50% 50 ML SYR IVP PRN (19:50)
[2024-05-22 20:00] VITALS: BP 154/82; PULSE 83; RESP 19; TEMP 97.4; O2SAT 98
[2024-05-22] MEDS: GABAPENTIN 300 MG CAP PO SCH (21:04)
[2024-05-22] MEDS: ZOLPIDEM 5 MG TAB PO PRN (21:04)
[2024-05-22] MEDS: BLOOD GLUCOSE MONITORING 1 DEV DEV FS SCH (21:07)
[2024-05-22] MEDS: INSULIN LISPRO SLIDING SCALE 100 UNITS/ML VIAL SUBQ PRN (21:54)
[2024-05-23] VITALS: BP 147/83; PULSE 80; RESP 18; TEMP 97.9; O2SAT 97
[2024-05-23 04:00] VITALS: BP 151/88; PULSE 76; RESP 18; TEMP 97.6; O2SAT 100
[2024-05-23 07:21] LABS: BASOPHILS % (AUTO) 0.7 % (0.0-2.0); EOSINOPHILS # (AUTO) 0.2 K/uL (0-0.4); EOSINOPHILS % (AUTO) 3.9 % (0.0-4.0); HEMATOCRIT 33.3 % (36-52); HEMOGLOBIN 11.3 g/dL (12.0-18.0); LYMPHOCYTES # (AUTO) 0.7 K/uL (2.0-11.5); LYMPHOCYTES % (AUTO) 14.2 % (20.5-51.1); MEAN CORPUSCULAR HEMOGLOBIN 33 pg (27-31); MEAN CORPUSCULAR HGB CONC 34 g/dL (33-37); MEAN CORPUSCULAR VOLUME 96.4 fL (80-94); MONOCYTES # (AUTO) 0.3 K/uL (0.8-1.0); MONOCYTES % (AUTO) 6.4 % (1.7-9.3); NEUTROPHILS # (AUTO) 3.7 K/uL (1.8-7.7); NEUTROPHILS % (AUTO) 74.8 % (42.2-75.2); PLATELET COUNT (AUTO) 201 K/uL (140-450); RED BLOOD CELL COUNT(AUTO) 3.46 MIL/uL (4.20-6.10); RED CELL DISTRIBUTION WIDTH 16.5 % (11.6-13.7); WHITE BLOOD COUNT (AUTO) 4.9 K/uL (4.8-10.8)
[2024-05-23 07:47] LABS: ANION GAP 17.4 (8-16); CALCIUM 9.2 mg/dL (8.5-10.1); CARBON DIOXIDE 25.6 mmol/L (21-32)
[2024-05-23 08:00] VITALS: BP 160/87; PULSE 76; PULSE 80; RESP 16; TEMP 97.8; O2SAT 98
[2024-05-23] MEDS: ASPIRIN 81 MG TAB.CHEW PO SCH (09:01)
[2024-05-23] MEDS: hydrALAZINE 20 MG/ML VIAL IVP PRN (09:01)
[2024-05-23 10:00] VITALS: BP 150/79; PULSE 80
[2024-05-23 12:00] VITALS: BP 152/73; PULSE 80; PULSE 86; RESP 17; TEMP 98.6; O2SAT 98
[2024-05-23] MEDS: INSULIN LISPRO 100 UNITS/ML VIAL SUBQ SCH (12:14)
[2024-05-23 14:30] VITALS: BP 152/73; PULSE 80; RESP 17; TEMP 98.6
[2024-05-24] MEDS ORDERED: GABAPENTIN 300 MG CAP PO SCH (09:00)
== END 2024-05-23 15:55 | disposition home or self-care (01) ==
LOC: MED 12:27 → MTU 15:03 → INTOOBSV 15:03 → MTU 16:32
PROVIDERS: ADMIT Internal Medicine; ATTEND Internal Medicine
DX: E87.1 Hypo-osmolality and hyponatremia (principal); I12.0 Hypertensive chronic kidney disease with stage 5 chronic kidney disease or end stage renal disease; E11.22 Type 2 diabetes mellitus with diabetic chronic kidney disease; N18.6 End stage renal disease; I16.0 Hypertensive urgency; E11.65 Type 2 diabetes mellitus with hyperglycemia; E78.5 Hyperlipidemia, unspecified; I21.3 ST elevation (STEMI) myocardial infarction of unspecified site; D72.819 Decreased white blood cell count, unspecified; D64.9 Anemia, unspecified; R74.01 Elevation of levels of liver transaminase levels; R79.89 Other specified abnormal findings of blood chemistry; I48.91 Unspecified atrial fibrillation; Z79.899 Other long term (current) drug therapy; Z99.2 Dependence on renal dialysis; Z86.73 Personal history of transient ischemic attack (TIA), and cerebral infarction without residual deficits
CPT/HCPCS: 36415; 71045; 80048; 80076; 82948; 84484; 85025; 87081; 93005; 96372; 96374; 99285; G0378; J0360; J1644; J1815